=== PATIENT | male | born 1950 | race Caucasian/White ===

== ENCOUNTER 2020-08-02 10:22 | Outpatient (REF) | payer MEDICARE, SELFPAY ==
[2020-08-02 11:25] LABS: MANUAL DIFF FLAG NO
[2020-08-02 11:28] LABS: Basophils Absolute Auto 0.1 X10*3/uL (0.0-0.2); Eosinophils Absolute Auto 0.2 X10*3/uL (0.0-0.4); Hematocrit 47.3 % (42-52); Hemoglobin 15.1 g/dl (14.0-18.0); Imm Gran Abs Auto 0.05 X10*3/uL (0.00-0.03); Imm Gran Pct Auto 0.6 % (0.0-0.4); Lymphocytes Absolute Auto 3.1 X10*3/uL (1.2-4.9); Lymphocytes Percent Auto 36.9 % (20-40); Mean Corpuscular HGB Conc 31.9 g/dl (31.0-36.0); Mean Corpuscular Hemoglobin 29.4 pg (27.0-33.0); Mean Corpuscular Volume 92.2 fL (80-98); Mean Platelet Volume 10.4 fL (9.4-12.4); Monocytes Absolute Auto 0.5 X10*3/uL (0.1-1.2); Monocytes Percent Auto 5.9 % (2-11); Neutrophils Absolute Auto 4.5 X10*3/uL (2.0-8.3); Neutrophils Percent Auto 53.6 % (45-73); Platelet Count 317 X10*3/uL (160-400); Red Blood Count 5.13 X10*6/uL (4.60-5.80); Red Cell Distribution Width 12.6 % (11.0-16.0); White Blood Count 8.3 X10*3/uL (4.8-10.8)
[2020-08-02 11:38] LABS: Estimated Average Glucose 194 mg/dL; Hemoglobin A1c % 8.4 %
[2020-08-02 11:50] LABS: Alanine Aminotransferase 27 U/L (0-40); Albumin Level 4.3 g/dL (3.5-5.0); Alkaline Phosphatase 89 U/L (39-117); Anion Gap 15 (12-20); Aspartate Amino Transferase 19 U/L (5-37); Blood Urea Nitrogen 17 mg/dL (9-16); Calcium 9.2 mg/dL (8.4-10.2); Carbon Dioxide 26 mmol/L (22-29); Chloride 103 mmol/L (96-108); Cholesterol 209 mg/dL; Estimated Glomerular Filt Rate > 60; Glucose Fasting 172 mg/dL (60-99); HDL Cholesterol 40 mg/dL; LDL Cholesterol Calculated 103 mg/dl; Sodium 139 mmol/L (135-145); Triglycerides 332 mg/dL
== END 2020-08-02 10:23 | disposition home or self-care (01) ==
LOC: HO.MANLDS 10:22
PROVIDERS: PCP Physician Assistant; Visit Provider Physician Assistant
DX: E78.00 Pure hypercholesterolemia, unspecified (principal); R73.01 Impaired fasting glucose
CPT/HCPCS: 36415; 80053; 80061; 83036; 85025

== ENCOUNTER 2020-12-06 12:03 | Outpatient (REF) | payer MEDICARE, SELFPAY ==
[2020-12-06 14:11] LABS: Estimated Average Glucose 189 mg/dL; Hemoglobin A1c % 8.2 %
[2020-12-06 14:20] LABS: Alanine Aminotransferase 28 U/L (0-40); Albumin Level 4.5 g/dL (3.5-5.0); Alkaline Phosphatase 90 U/L (39-117); Anion Gap 16 (12-20); Aspartate Amino Transferase 22 U/L (5-37); Bilirubin Total 0.7 mg/dL (0.0-1.0); Blood Urea Nitrogen 16 mg/dL (9-16); Calcium 9.6 mg/dL (8.4-10.2); Carbon Dioxide 25 mmol/L (22-29); Chloride 103 mmol/L (96-108); Cholesterol 242 mg/dL; Estimated Glomerular Filt Rate 58; Glucose Fasting 157 mg/dL (60-99); HDL Cholesterol 40 mg/dL; LDL Cholesterol Calculated 123 mg/dl; Potassium 4.7 mmol/L (3.3-5.1); Sodium 139 mmol/L (135-145); Total Protein 7.2 g/dL (6.5-8.0); Triglycerides 395 mg/dL
[2020-12-06 18:19] LABS: Creatinine Urine 170.76 mg/dL; Microalbum/Creatinine Ratio Ur 16.9 ug/mg cr
== END 2020-12-06 12:04 | disposition home or self-care (01) ==
LOC: HO.MANLR 12:03
PROVIDERS: PCP Internal Medicine; Visit Provider Physician Assistant
DX: E11.9 Type 2 diabetes mellitus without complications (principal)
CPT/HCPCS: 36415; 80053; 80061; 82043; 83036

== ENCOUNTER 2021-03-20 11:13 | Outpatient (REF) | payer MEDICARE, SELFPAY ==
[2021-03-20 13:01] LABS: Hematocrit 45.8 % (42-52); Hemoglobin 14.9 g/dl (14.0-18.0); Mean Corpuscular HGB Conc 32.5 g/dl (31.0-36.0); Mean Corpuscular Hemoglobin 29.7 pg (27.0-33.0); Mean Corpuscular Volume 91.4 fL (80-98); Mean Platelet Volume 10.5 fL (9.4-12.4); Platelet Count 286 X10*3/uL (160-400); Red Blood Count 5.01 X10*6/uL (4.60-5.80); Red Cell Distribution Width 12.9 % (11.0-16.0)
[2021-03-20 13:21] LABS: Alanine Aminotransferase 18 U/L (0-40); HDL Cholesterol 40 mg/dL
[2021-03-20 13:31] LABS: Albumin Level 4.4 g/dL (3.5-5.0); Alkaline Phosphatase 81 U/L (39-117); Anion Gap 12 (12-20); Aspartate Amino Transferase 18 U/L (5-37); Bilirubin Total 0.7 mg/dL (0.0-1.0); Blood Urea Nitrogen 15 mg/dL (9-16); Calcium 9.5 mg/dL (8.4-10.2); Carbon Dioxide 25 mmol/L (22-29); Chloride 107 mmol/L (96-108); Cholesterol 139 mg/dL; Estimated Glomerular Filt Rate > 60; Glucose Random 133 mg/dL (60-115); LDL Cholesterol Calculated 74 mg/dl; Potassium 4.2 mmol/L (3.3-5.1); Sodium 140 mmol/L (135-145); Total Protein 6.9 g/dL (6.5-8.0); Triglycerides 128 mg/dL
[2021-03-20 13:37] LABS: Estimated Average Glucose 166 mg/dL; Hemoglobin A1c % 7.4 %
== END 2021-03-20 11:14 | disposition home or self-care (01) ==
LOC: HO.MANLDS 11:13
PROVIDERS: PCP Internal Medicine; Visit Provider Physician Assistant
DX: E78.00 Pure hypercholesterolemia, unspecified (principal); E11.9 Type 2 diabetes mellitus without complications
CPT/HCPCS: 36415; 80053; 80061; 83036; 85027

== ENCOUNTER 2021-06-07 10:34 | Outpatient (REF) | payer MEDICARE, SELFPAY ==
[2021-06-07 13:32] LABS: Syphilis Screen Nonreactive (Nonreactive)
[2021-06-07 13:38] LABS: Free T4 (Free Thyroxine) 0.74 ng/dL (0.71-1.85); Thyroid Stimulating Hormone 1.26 uIU/mL (0.32-4.0)
[2021-06-07 13:44] LABS: Folate 9.6 ng/mL (> or = 4.0); Vitamin B12 549 pg/mL (200-900)
== END 2021-06-07 10:35 | disposition home or self-care (01) ==
LOC: HO.MANLDS 10:34
PROVIDERS: PCP Physician Assistant; Visit Provider Physician Assistant
DX: R41.3 Other amnesia (principal)
CPT/HCPCS: 36415; 82607; 82746; 84439; 84443; 86780

== ENCOUNTER 2021-10-03 11:21 | Outpatient (REF) | payer MEDICARE, SELFPAY ==
[2021-10-03 14:29] LABS: Estimated Average Glucose 143 mg/dL; Hemoglobin A1c % 6.6 %
[2021-10-03 14:57] LABS: Free T4 (Free Thyroxine) 0.75 ng/dL (0.71-1.85); Thyroid Stimulating Hormone 1.51 uIU/mL (0.32-4.0)
[2021-10-03 15:05] LABS: Folate 10.5 ng/mL (> or = 4.0); Vitamin B12 543 pg/mL (200-900)
[2021-10-04 04:14] LABS: Syphilis Screen Nonreactive (Nonreactive)
== END 2021-10-03 11:22 | disposition home or self-care (01) ==
LOC: HO.MANLDS 11:21
PROVIDERS: PCP Physician Assistant; Visit Provider Physician Assistant
DX: E11.9 Type 2 diabetes mellitus without complications (principal)
CPT/HCPCS: 36415; 82607; 82746; 83036; 84439; 84443; 86780

== ENCOUNTER 2022-03-05 10:39 | Outpatient (REF) | payer MEDICARE, SELFPAY ==
[2022-03-05 13:29] LABS: MANUAL DIFF FLAG NO
[2022-03-05 13:32] LABS: Basophils Absolute Auto 0.1 X10*3/uL (0.0-0.2); Basophils Percent Auto 0.7 % (0-2); Eosinophils Absolute Auto 0.2 X10*3/uL (0.0-0.4); Eosinophils Percent Auto 2.7 % (0-4); Hematocrit 47.6 % (42.0-52.0); Hemoglobin 15.7 g/dl (14.0-18.0); Imm Gran Abs Auto 0.04 X10*3/uL (0.00-0.03); Imm Gran Pct Auto 0.5 % (0.0-0.4); Lymphocytes Absolute Auto 2.2 X10*3/uL (1.2-4.9); Lymphocytes Percent Auto 25.6 % (20-40); Monocytes Absolute Auto 0.6 X10*3/uL (0.1-1.2); Monocytes Percent Auto 7.5 % (2-11); Neutrophils Absolute Auto 5.4 x10*3/uL (2.0-8.3); Platelet Count 248 X10*3/uL (160-400); Red Blood Count 5.23 X10*6/uL (4.60-5.80); White Blood Count 8.6 X10*3/uL (4.8-10.8)
[2022-03-05 13:43] LABS: Alanine Aminotransferase 36 U/L (0-40); Albumin Level 4.5 g/dL (3.5-5.0); Alkaline Phosphatase 95 U/L (39-117); Anion Gap 17 (12-20); Aspartate Amino Transferase 24 U/L (5-37); Bilirubin Total 0.7 mg/dL (0.0-1.0); Blood Urea Nitrogen 16 mg/dL (9-16); Calcium 9.8 mg/dL (8.4-10.2); Carbon Dioxide 23 mmol/L (22-29); Chloride 104 mmol/L (96-108); Cholesterol 197 mg/dL; Estimated Glomerular Filt Rate > 60; Glucose Random 206 mg/dL (60-115); HDL Cholesterol 39 mg/dL; LDL Cholesterol Calculated 99 mg/dl; Potassium 4.6 mmol/L (3.3-5.1); Sodium 139 mmol/L (135-145); Total Protein 7.3 g/dL (6.5-8.0); Triglycerides 297 mg/dL
[2022-03-05 14:05] LABS: Free T4 (Free Thyroxine) 0.82 ng/dL (0.71-1.85)
[2022-03-05 14:17] LABS: Estimated Average Glucose 180 mg/dL; Hemoglobin A1c % 7.9 %
[2022-03-05 14:46] LABS: Syphilis Screen Nonreactive (Nonreactive)
[2022-03-05 14:58] LABS: Folate 11.6 ng/mL (> or = 4.0); Vitamin B12 572 pg/mL (200-900)
== END 2022-03-05 10:40 | disposition home or self-care (01) ==
LOC: HO.MANLDS 10:39
PROVIDERS: Visit Provider Physician Assistant
DX: E11.9 Type 2 diabetes mellitus without complications (principal); E78.00 Pure hypercholesterolemia, unspecified; R41.3 Other amnesia
CPT/HCPCS: 36415; 80053; 80061; 82607; 82746; 83036; 84439; 84443; 85025; 86780

== ENCOUNTER 2022-06-06 10:27 | Outpatient (REF) | payer MEDICARE, SELFPAY ==
[2022-06-06 12:47] LABS: MANUAL DIFF FLAG NO
[2022-06-06 12:53] LABS: Basophils Absolute Auto 0.1 X10*3/uL (0.0-0.2); Eosinophils Absolute Auto 0.2 X10*3/uL (0.0-0.4); Eosinophils Percent Auto 2.5 % (0-4); Hematocrit 47.9 % (42.0-52.0); Hemoglobin 15.8 g/dl (14.0-18.0); Imm Gran Abs Auto 0.03 X10*3/uL (0.00-0.03); Imm Gran Pct Auto 0.4 % (0.0-0.4); Lymphocytes Percent Auto 35.9 % (20-40); Mean Corpuscular Hemoglobin 30.2 pg (27.0-33.0); Mean Corpuscular Volume 91.6 fL (80.0-98.0); Mean Platelet Volume 10.9 fL (9.4-12.4); Monocytes Absolute Auto 0.6 X10*3/uL (0.1-1.2); Neutrophils Absolute Auto 4.4 x10*3/uL (2.0-8.3); Neutrophils Percent Auto 53.2 % (45-73); Platelet Count 267 X10*3/uL (160-400); Red Blood Count 5.23 X10*6/uL (4.60-5.80); Red Cell Distribution Width 12.9 % (11.0-16.0); White Blood Count 8.3 X10*3/uL (4.8-10.8)
[2022-06-06 13:14] LABS: Estimated Average Glucose 180 mg/dL; Hemoglobin A1c % 7.9 %
[2022-06-06 13:54] LABS: Alanine Aminotransferase 55 U/L (0-40); Albumin Level 4.5 g/dL (3.5-5.0); Alkaline Phosphatase 103 U/L (39-117); Anion Gap 17 (12-20); Aspartate Amino Transferase 34 U/L (5-37); Bilirubin Total 0.5 mg/dL (0.0-1.0); Blood Urea Nitrogen 18 mg/dL (9-16); Calcium 9.8 mg/dL (8.4-10.2); Carbon Dioxide 26 mmol/L (22-29); Chloride 104 mmol/L (96-108); Estimated Glomerular Filt Rate > 60; Glucose Random 183 mg/dL (60-115); Potassium 4.6 mmol/L (3.3-5.1); Sodium 142 mmol/L (135-145); Total Protein 7.3 g/dL (6.5-8.0)
[2022-06-06 14:15] LABS: Free T4 (Free Thyroxine) 0.81 ng/dL (0.71-1.85); Thyroid Stimulating Hormone 2.25 uIU/mL (0.32-4.0)
[2022-06-06 14:30] LABS: Syphilis Screen Nonreactive (Nonreactive)
[2022-06-06 14:43] LABS: Folate 9.2 ng/mL (> or = 4.0); Vitamin B12 494 pg/mL (200-900)
== END 2022-06-06 10:28 | disposition home or self-care (01) ==
LOC: HO.MANLDS 10:27
PROVIDERS: Visit Provider Physician Assistant
DX: E78.00 Pure hypercholesterolemia, unspecified (principal); E11.9 Type 2 diabetes mellitus without complications; R41.3 Other amnesia
CPT/HCPCS: 36415; 80053; 82607; 82746; 83036; 84439; 84443; 85025; 86780

== ENCOUNTER 2022-08-08 10:05 | Outpatient (REF) | payer MEDICARE, SELFPAY ==
[2022-08-08 13:51] LABS: MANUAL DIFF FLAG NO
[2022-08-08 14:00] LABS: Basophils Absolute Auto 0.1 X10*3/uL (0.0-0.2); Basophils Percent Auto 1.1 % (0-2); Eosinophils Absolute Auto 0.2 X10*3/uL (0.0-0.4); Eosinophils Percent Auto 2.2 % (0-4); Hematocrit 47.5 % (42.0-52.0); Hemoglobin 15.6 g/dl (14.0-18.0); Imm Gran Abs Auto 0.05 X10*3/uL (0.00-0.03); Imm Gran Pct Auto 0.6 % (0.0-0.4); Lymphocytes Absolute Auto 2.6 X10*3/uL (1.2-4.9); Lymphocytes Percent Auto 31.8 % (20-40); Mean Corpuscular HGB Conc 32.8 g/dl (31.0-36.0); Mean Corpuscular Hemoglobin 29.5 pg (27.0-33.0); Mean Platelet Volume 10.7 fL (9.4-12.4); Monocytes Absolute Auto 0.6 X10*3/uL (0.1-1.2); Monocytes Percent Auto 6.8 % (2-11); Neutrophils Absolute Auto 4.6 x10*3/uL (2.0-8.3); Neutrophils Percent Auto 57.5 % (45-73); Platelet Count 284 X10*3/uL (160-400); Red Blood Count 5.28 X10*6/uL (4.60-5.80); Red Cell Distribution Width 12.9 % (11.0-16.0); White Blood Count 8.1 X10*3/uL (4.8-10.8)
[2022-08-08 14:07] LABS: Estimated Average Glucose 183 mg/dL
[2022-08-08 14:13] LABS: Alanine Aminotransferase 32 U/L (0-40); Albumin Level 4.5 g/dL (3.5-5.0); Alkaline Phosphatase 97 U/L (39-117); Anion Gap 19 (12-20); Aspartate Amino Transferase 22 U/L (5-37); Bilirubin Total 0.7 mg/dL (0.0-1.0); Blood Urea Nitrogen 14 mg/dL (9-16); Carbon Dioxide 24 mmol/L (22-29); Chloride 103 mmol/L (96-108); Cholesterol 215 mg/dL; Estimated Glomerular Filt Rate > 60; Glucose Random 161 mg/dL (60-115); HDL Cholesterol 38 mg/dL; LDL Cholesterol Calculated 117 mg/dl; Potassium 4.7 mmol/L (3.3-5.1); Sodium 141 mmol/L (135-145); Total Protein 7.3 g/dL (6.5-8.0); Triglycerides 302 mg/dL
[2022-08-08 14:32] LABS: Syphilis Screen Nonreactive (Nonreactive)
[2022-08-08 14:34] LABS: Free T4 (Free Thyroxine) 0.84 ng/dL (0.71-1.85)
[2022-08-08 15:35] LABS: Vitamin B12 473 pg/mL (200-900)
== END 2022-08-08 10:06 | disposition home or self-care (01) ==
LOC: HO.MANLDS 10:05
PROVIDERS: Visit Provider Physician Assistant
DX: Z13.89 Encounter for screening for other disorder (principal)
CPT/HCPCS: 36415; 80053; 80061; 82607; 83036; 84439; 84443; 85025; 86780

== ENCOUNTER 2022-10-05 11:11 | Outpatient (REF) | payer MEDICARE, SELFPAY ==
[2022-10-05 14:26] LABS: Estimated Average Glucose 194 mg/dL; Hemoglobin A1c % 8.4 %
[2022-10-05 14:37] LABS: Alanine Aminotransferase 33 U/L (0-40); Albumin Level 4.4 g/dL (3.5-5.0); Alkaline Phosphatase 91 U/L (39-117); Anion Gap 14 (12-20); Aspartate Amino Transferase 21 U/L (5-37); Bilirubin Total 0.7 mg/dL (0.0-1.0); Blood Urea Nitrogen 20 mg/dL (9-16); Carbon Dioxide 27 mmol/L (22-29); Chloride 106 mmol/L (96-108); Estimated Glomerular Filt Rate 60; Glucose Random 181 mg/dL (60-115); Potassium 4.8 mmol/L (3.3-5.1); Sodium 142 mmol/L (135-145); Total Protein 6.9 g/dL (6.5-8.0)
== END 2022-10-05 11:12 | disposition home or self-care (01) ==
LOC: HO.MANLDS 11:11
PROVIDERS: Visit Provider Physician Assistant
DX: E78.00 Pure hypercholesterolemia, unspecified (principal); E11.9 Type 2 diabetes mellitus without complications
CPT/HCPCS: 36415; 80053; 83036

== ENCOUNTER 2022-12-12 10:25 | Outpatient (REF) | payer MEDICARE, SELFPAY ==
[2022-12-12 13:18] LABS: Alanine Aminotransferase 56 U/L (0-40); Albumin Level 4.2 g/dL (3.5-5.0); Alkaline Phosphatase 96 U/L (39-117); Anion Gap 13 (12-20); Aspartate Amino Transferase 33 U/L (5-37); Bilirubin Total 0.9 mg/dL (0.0-1.0); Blood Urea Nitrogen 20 mg/dL (9-16); Calcium 9.8 mg/dL (8.4-10.2); Carbon Dioxide 27 mmol/L (22-29); Chloride 106 mmol/L (96-108); Cholesterol 162 mg/dL; Estimated Glomerular Filt Rate 59; Glucose Random 172 mg/dL (60-115); HDL Cholesterol 34 mg/dL; LDL Cholesterol Calculated 92 mg/dl; Potassium 5.2 mmol/L (3.3-5.1); Sodium 141 mmol/L (135-145); Total Protein 6.7 g/dL (6.5-8.0); Triglycerides 183 mg/dL
[2022-12-12 13:20] LABS: Estimated Average Glucose 177 mg/dL; Hemoglobin A1c % 7.8 %
== END 2022-12-12 10:26 | disposition home or self-care (01) ==
LOC: HO.MANLDS 10:25
PROVIDERS: Visit Provider Physician Assistant
DX: E11.9 Type 2 diabetes mellitus without complications (principal)
CPT/HCPCS: 36415; 80053; 80061; 83036

== ENCOUNTER 2023-03-20 10:24 | Outpatient (REF) | payer MEDICARE, SELFPAY ==
[2023-03-20 14:24] LABS: Alanine Aminotransferase 31 U/L (0-40); Alkaline Phosphatase 79 U/L (39-117); Anion Gap 14 (12-20); Aspartate Amino Transferase 27 U/L (5-37); Bilirubin Total 0.6 mg/dL (0.0-1.0); Blood Urea Nitrogen 24 mg/dL (9-16); Calcium 9.3 mg/dL (8.4-10.2); Carbon Dioxide 24 mmol/L (22-29); Chloride 108 mmol/L (96-108); Cholesterol 138 mg/dL; Estimated Glomerular Filt Rate > 60; Glucose Random 169 mg/dL (60-115); HDL Cholesterol 34 mg/dL; LDL Cholesterol Calculated 80 mg/dl; Potassium 4.3 mmol/L (3.3-5.1); Sodium 142 mmol/L (135-145); Total Protein 6.9 g/dL (6.5-8.0); Triglycerides 121 mg/dL
[2023-03-20 14:27] LABS: Estimated Average Glucose 166 mg/dL; Hemoglobin A1c % 7.4 %
== END 2023-03-20 10:25 | disposition home or self-care (01) ==
LOC: HO.MANLDS 10:24
PROVIDERS: Visit Provider Physician Assistant
DX: E11.9 Type 2 diabetes mellitus without complications (principal)
CPT/HCPCS: 36415; 80053; 80061; 83036

== ENCOUNTER 2023-07-01 11:17 | Outpatient (REF) | payer MEDICARE, SELFPAY ==
[2023-07-01 13:58] LABS: Estimated Average Glucose 166 mg/dL; Hemoglobin A1c % 7.4 % (<6.0)
[2023-07-01 14:05] LABS: Alanine Aminotransferase 23 U/L (0-40); Albumin Level 4.2 g/dL (3.5-5.0); Alkaline Phosphatase 74 U/L (39-117); Anion Gap 14 (12-20); Aspartate Amino Transferase 26 U/L (5-37); Bilirubin Total 0.8 mg/dL (0.0-1.0); Blood Urea Nitrogen 20 mg/dL (9-16); Calcium 9.9 mg/dL (8.4-10.2); Carbon Dioxide 22 mmol/L (22-29); Chloride 108 mmol/L (96-108); Cholesterol 164 mg/dL (<200); Estimated Glomerular Filt Rate > 60; Glucose Random 154 mg/dL (60-115); HDL Cholesterol 43 mg/dL (>40); LDL Cholesterol Calculated 95 mg/dL (<100); Potassium 4.2 mmol/L (3.3-5.1); Sodium 140 mmol/L (135-145); Total Protein 7.1 g/dL (6.5-8.0); Triglycerides 133 mg/dL (<150)
== END 2023-07-01 11:18 | disposition home or self-care (01) ==
LOC: HO.MANLDS 11:17
PROVIDERS: Visit Provider Physician Assistant
DX: E11.9 Type 2 diabetes mellitus without complications (principal)
CPT/HCPCS: 36415; 80053; 80061; 83036

== ENCOUNTER 2023-10-01 10:39 | Outpatient (REF) | payer MEDICARE, SELFPAY ==
[2023-10-01 14:00] LABS: Estimated Average Glucose 180 mg/dL; Hemoglobin A1c % 7.9 % (<6.0)
== END 2023-10-01 10:40 | disposition home or self-care (01) ==
LOC: HO.MANLDS 10:39
PROVIDERS: Visit Provider Physician Assistant
DX: E11.9 Type 2 diabetes mellitus without complications (principal)
CPT/HCPCS: 36415; 83036

== ENCOUNTER 2024-01-03 09:16 | Outpatient (REF) | payer MEDICARE, SELFPAY ==
[2024-01-03 13:45] LABS: MANUAL DIFF FLAG NO
[2024-01-03 13:55] LABS: Basophils Absolute Auto 0.1 X10*3/uL (0.0-0.2); Eosinophils Absolute Auto 0.2 X10*3/uL (0.0-0.4); Eosinophils Percent Auto 1.7 % (0-4); Hematocrit 48.6 % (42.0-52.0); Hemoglobin 15.6 g/dl (14.0-18.0); Imm Gran Abs Auto 0.05 X10*3/uL (0.00-0.03); Imm Gran Pct Auto 0.5 % (0.0-0.4); Lymphocytes Absolute Auto 3.2 X10*3/uL (1.2-4.9); Lymphocytes Percent Auto 34.4 % (20-40); Mean Corpuscular HGB Conc 32.1 g/dl (31.0-36.0); Mean Corpuscular Hemoglobin 29.9 pg (27.0-33.0); Mean Corpuscular Volume 93.3 fL (80.0-98.0); Monocytes Absolute Auto 0.7 X10*3/uL (0.1-1.2); Monocytes Percent Auto 7.5 % (2-11); Neutrophils Absolute Auto 5.2 x10*3/uL (2.0-8.3); Neutrophils Percent Auto 54.9 % (45-73); Platelet Count 260 X10*3/uL (160-400); Red Blood Count 5.21 X10*6/uL (4.60-5.80); Red Cell Distribution Width 12.9 % (11.0-16.0); White Blood Count 9.4 X10*3/uL (4.8-10.8)
[2024-01-03 14:01] LABS: Estimated Average Glucose 206 mg/dL; Hemoglobin A1c % 8.8 % (<6.0)
[2024-01-03 14:25] LABS: Alanine Aminotransferase 26 U/L (0-40); Albumin Level 4.1 g/dL (3.5-5.0); Alkaline Phosphatase 79 U/L (39-117); Anion Gap 11 (12-20); Aspartate Amino Transferase 19 U/L (5-37); Bilirubin Total 0.7 mg/dL (0.0-1.0); Blood Urea Nitrogen 21 mg/dL (9-16); Calcium 9.1 mg/dL (8.4-10.2); Carbon Dioxide 26 mmol/L (22-29); Chloride 106 mmol/L (96-108); Cholesterol 177 mg/dL (<200); Estimated Glomerular Filt Rate > 60; Glucose Random 219 mg/dL (60-115); HDL Cholesterol 41 mg/dL (>40); LDL Cholesterol Calculated 92 mg/dL (<100); Sodium 139 mmol/L (135-145); Total Protein 7.1 g/dL (6.5-8.0); Triglycerides 223 mg/dL (<150)
== END 2024-01-03 09:17 | disposition home or self-care (01) ==
LOC: HO.MANLDS 09:16
PROVIDERS: Visit Provider Physician Assistant
DX: E11.9 Type 2 diabetes mellitus without complications (principal)
CPT/HCPCS: 36415; 80053; 80061; 83036; 85025

== ENCOUNTER 2025-08-23 11:42 | Outpatient (REF) | payer MEDICARE, SELFPAY ==
[2025-08-23 13:18] LABS: Appearance Urine Clear; Glucose Urine UA >=1000 mg/dL (Negative); PH 5.5 (5.0-9.0); Specific Gravity - Urine 1.025 (1.005-1.025); UMIC TRIGGER UACC YES
--- OUTSIDE RECORDS SUMMARY | 2025-08-23 15:33 | XMS_ITS | Encounter Summary ---
Author Organization [facility] Address [address] [place] [address] Phone Care Team Providers Care Household Personal Assistant Name Role Phone Jill Estrada MBBS Unavailable [phone] Shireen Galicia PLUMBING INSTALLER Unavailable Maritza Vazquez TEAM PRIMARY CARE PHYSICIAN Unavailable Sebastián Guillen DO Primary Care Provider [phone] Encounter Details Date Type Department Care Team (Late st Contact Info) Description 04/29/2025 Procedure Pass [facility], Ct Scan - [address] [address] Social History Tobacco Use Types Packs/Day Years Used Date Smoking Tobacco: Never Smokeless Tobacco: Never Alcohol Use Standard Drinks/Week Comments No 0 (1 standard drink = 0.6 oz pur e alcohol) Home Health Assessment: Transportation Answer Date Recorded Lack of Transportation (Medical) No 04/22/2025 Lack of Transportation (Non-Medical) No 04/22/2025 Patient Unable or Declines to Respond No 04/22/2025 Education Answer Date Recorded Are you interested in more education? Not on amanda e 01/24/2023 Are you concerned about learning? Not on file 01/24/2023 No 01/24/2023 No 01/24/2023 Digital Access Answer Date Recorded No 02/25/2023 No 02/25/2023 Reliable internet access at home? Not on file 02/25/2023 Device with a working camera? Not on file Intimate Partner Violence Answer Date R ecorded Are you denied basic needs s uch as food, clothing, or medical care? Deferred 03/10/2025 In the past 12 months have y ou been in a relationship with a person who hurts, threatens, or tries to control you? Deferred 03/10/2025 Are you denied basic needs s uch as food, clothing, or medical care? Deferred 03/10/2025 In the past 12 months have y ou been in a relationship with a person who hurts, threatens, or tries to control you? Deferred 03/10/2025 Sex and Gender Information Value Date Recorded Sex Assigned at Male 07/08/2024 12:43 PM EDT Legal Sex Male 10:03 PM EDT Gender Identity Male 07/08/2024 12:43 PM EDT Sexual Orientation Straight 07/08/2024 12 :43 PM EDT documented as of this encounter Plan of Treatment Upcoming Encounters Date Type Department Care Team (Late st Contact Info) Description 06/17/2025 Procedure Pass [address] [address] 06/17/[address] [address] 09/08/2025 3:15 PM EST Appointment [address] [address] Jill Estrada MBBS [address] [place] [address] [email or web address] 09/09/2025 1:40 PM EST Office Visit [facility] [address] [place] [address] Prakash Zambrano DO [address] [place] [address] 09/15/2025 2:00 PM EST Office Visit [facility] [address] [place] [address] Jill Estrada MBBS 30 [place] [address] [email or web address] 09/24/2025 7:00 PM EST Appointment [facility], Bone Density - [facility] 30 [place] [address] Sebastián Guillen DO [address] [place] [address] documented as of this encounter Visit Diagnoses Not on filedocumented in this encounter Care Teams Household Personal Assistant Relationship Specialty Start Date End Date Sebastián Guillen DO [address] [place] [address] PCP - General Internal Medicine 10/14/24 Jill Estrada MBBS [email or web address] Medical Oncology 07/09/24 Shireen Galicia CNP [address] [place] [address] [email or web address] Nurse Practitioner 10/08/24 Maritza Vazquez NP [address] [place] [address] [email or web address] Nurse Practitioner 10/13/24 documented as of this encounter Additional Source Comments The information contained in this document represents components of the legal health record. It is not the complete legal health record.[facility]
--- OUTSIDE RECORDS SUMMARY | 2025-08-23 15:33 | XMS_ITS | Encounter Summary ---
Author Organization [facility] Address [address] [place] [address] Phone Care Team Providers Care Vacuum Drier Tender Name Role Phone Sebastián Guillen DO Primary Care Provider + Jill Estrada MBBS Unavailable + Pcp, Unknown Primary Care Provider Unavailabl e Shireen Galicia LITIGATION PARALEGAL Unavailable Maritza Vazquez LONG CHAIN DYEING MACHINE OPERATOR Unavailable [phone] Bigjesus manuel, Sebastián Malave DO Primary Care Provider + Bigda, Sebastián Malave DO Primary Care Provider + Encounter Details Date Type Department Care Team (Late st Contact Info) Description 05/27/2024 Procedure Pass [facility], Ct Scan - [address] [address] Social History Tobacco Use Types Packs/Day Years Used Date Smoking Tobacco: Never Smokeless Tobacco: Never Alcohol Use Standard Drinks/Week Comments No 0 (1 standard drink = 0.6 oz pur e alcohol) Education Answer Date Recorded Are you interested in more education? Not on amanda e 01/24/2023 Are you concerned about learning? Not on file 01/24/2023 No 01/24/2023 No 01/24/2023 Digital Access Answer Date Recorded No 02/25/2023 No 02/25/2023 Reliable internet access at home? Not on file 02/25/2023 Device with a working camera? Not on file Sex and Gender Information Value Date Recorded Sex Assigned at Male 07/08/2024 12:43 PM EDT Legal Sex Male 10:03 PM EDT Gender Identity Male 07/08/2024 12:43 PM EDT Sexual Orientation Straight 07/08/2024 12 :43 PM EDT documented as of this encounter Functional Status * Calculated C-SSRS Risk Score (Lifetime/Recent) Answer Date of Assessment Author No Risk Indicated 05/28/2024 5:23 AM EDT Zena Cook RN * [place] Suicide Severity Rating Scale (Screener/Recent Self-Report) Question Answer Date of Assessment Author 1. Wish to be (Past 1 Month) No 024 5:23 AM EDT Zena Cook RN 2. Non-Specific Active Suici paige Thoughts (Past 1 Month) No 05/28/2024 5:23 AM EDT Arden Cook RN 6. Suicidal Behavior (Lifetime) No 5:23 AM EDT Zena Cook RN documented as of this encounter Plan of Treatment Upcoming Encounters Date Type Department Care Team (Late st Contact Info) Description 06/17/2025 Procedure Pass [address] [address] 06/17/2025 Procedure Pass [address] [address] 09/08/2025 3:15 PM EST Appointment [address] [address] Jill Estrada MBBS [address] [place] [address] [email or web address] 09/09/2025 1:40 PM EST Office Visit [facility] [address] [place] [address] Prakash Zambrano DO [address] [place] [address] 09/15/2025 2:00 PM EST Office Visit [facility] 30 [place] [address] Jill Estrada MBBS 30 [place] [address] [email or web address] 09/24/2025 7:00 PM EST Appointment [facility], Bone Density - [address] [address] Sebastián Guillen DO [address] [place] [address] documented as of this encounter Visit Diagnoses Not on filedocumented in this encounter Care Teams Vacuum Drier Tender Relationship Specialty Start Date End Date Sebastián Guillen DO PCP - General Internal Medicine 09/10/17 07/27/24 Pcp, Unknown PCP - General 10/08/24 10/13/24 Sebastián Guillen DO [address] [place] [address] PCP - General Internal Medicine 10/14/24 Sebastián Guillen DO [address] [place] [address] PCP - General 08/17/24 10/07/24 Jill Estrada MBBS [email or web address] Medical Oncology 07/09/24 Shireen Galicia CNP [address] [place] [address] [email or web address] Nurse Practitioner 10/08/24 Maritza Vazquez NP [address] [place] [address] [email or web address] Nurse Practitioner 10/13/24 documented as of this encounter Additional Source Comments The information contained in this document represents components of the legal health record. It is not the complete legal health record.[facility]
--- OUTSIDE RECORDS SUMMARY | 2025-08-23 15:33 | XMS_ITS | Encounter Summary ---
Author Organization [facility] Address [address] [place] [address] Phone Care Team Providers Care Manager Interface Name Role Phone Jill Estrada MBBS Unavailable Shireen Galicia TAX PREPARER Unavailable Maritza Vazquez IT SALES REPRESENTATIVE Unavailable [phone] Sebastián Guillen DO Primary Care Provider Encounter Details Date Type Department Care Team (Late st Contact Info) Description 05/12/2025 Ancillary Orders Virtual Department 30 [place] [address] Sebastián Guillen DO [address] [facility] [place] [address] Osteopenia, unspecified location (Primary Dx); Other specified disorders of bone density and structure, unspecified site; Adverse effect of multiple unspecified drugs, medicaments and biological substances, initial encounter Social History Tobacco Use Types Packs/Day Years [...] st Contact Info) Description 06/17/2025 Procedure Pass [address] [address] 06/17/2025 Procedure Pass [address] [address] 09/08/2025 3:15 PM EST Appointment [address] [address] Jill Estrada MBBS [address] [place] [address] [email or web address] 09/09/2025 1:40 PM EST Office Visit [facility] [address] [place] [address] Prakash Zambrano DO 22 [place] [address] 09/15/2025 2:00 PM EST Office Visit [facility] 30 [place] [address] Jill Estrada MBBS 30 [place] [address] [email or web address] 09/24/2025 7:00 PM EST Appointment [facility], Bone Density - [address] [address] Sebastián Guillen DO [address] [facility] [place] [address] Scheduled Orders Name Type Priority Associated Diagnoses Orde r Schedule DXA Screening Imaging Routine Osteopenia, unspecified location Other specified disorders of bone density and structure, unspecified site Adverse effect of multiple unspecified drugs, medicaments and biological substances, initial encounter Expected: 06/11/2025, Expires: 05/12/2026 documented as of this encounter Visit Diagnoses Diagnosis Osteopenia, unspecified location- Primary Other specified disorders of bone density and structure, unspecified site Adverse effect of multiple unspecified drugs, medicaments and biological substances, initial encounter documented in this encounter Care Teams Manager Interface Relationship Specialty Start Date End Date Sebastián Guillen DO [address] [place] [address] PCP - General Internal Medicine 10/14/24 Jill Estrada MBBS [email or web address] Medical Oncology 07/09/24 Shireen Galicia CNP [address] [place] [address] [email or web address] Nurse Practitioner 10/08/24 Maritza Vazquez NP [address] [place] [address] [email or web address] Nurse Practitioner 10/13/24 documented as of this encounter Additional Source Comments The information contained in this document represents components of the legal health record. It is not the complete legal health record.[facility]
--- OUTSIDE RECORDS SUMMARY | 2025-08-23 15:33 | XMS_ITS | Encounter Summary ---
Author Organization [facility] Address [address] [place] [address] Phone Care Team Providers Care Cutting Table Operator Name Role Phone Sebastián Guillen DO Primary Care Provider [phone] Jill Estrada MBBS Unavailable [phone] Pcp, Unknown Primary Care Provider Unavailabl Shireen France QUALITY ASSURANCE MANAGER Unavailable Maritza Vazquez VENDOR MANAGEMENT CONSULTANT Unavailable [phone] Bigda, Sebastián A DO Primary Care Provider [phone] Bigda, Sebastián A DO Primary Care Provider [phone] Encounter Details Date Type Department Care Team (Latest Contact Info) Description 05/22/2021 Transcribe Orders Virtual Department 30 [place] [address] Sheree Orellana PA [address] [place] [address] [place] [address] Other amnesia (Primary Dx) Social History Tobacco Use Types Packs/Day Years Used Date Smoking Tobacco: Never Smokeless Tobacco: Never Alcohol Use Standard Drinks/Week Comments No 0 (1 standard drink = 0.6 oz pur e alcohol) Sex and Gender Information Value Date Recorded Sex Assigned at Male 07/08/2024 12:43 PM EDT Legal Sex Male 10:03 PM EDT Gender Identity Male 07/08/2024 12:43 PM EDT Sexual Orientation Straight 07/08/2024 12 :43 PM EDT documented as of this encounter Plan of Treatment Upcoming Encounters Date Type Department Care Team (Late st Contact Info) Description 06/17/2025 Procedure Pass [facility] [address] [address] 06/17/2025 Procedure Pass [address] [address] 09/08/2025 3:15 PM EST Appointment [address] [address] Jill Estrada MBBS [address] [place] [address] [email or web address] 09/09/2025 1:40 PM EST Office Visit [facility] [address] [place] [address] Prakash Zambrano DO [address] [place] [address] 09/15/2025 2:00 PM EST Office [facility] at [address] [address] Jill Estrada MBBS [address] [place] [address] [email or web address] 09/24/2025 7:00 PM EST Appointment [facility] Bone Density [address] [address] Sebastián Guillen DO [address] [place] [address] [email or web address] documented as of this encounter Visit Diagnoses Diagnosis Other amnesia- Primary documented in this encounter Care Teams Cutting Table Operator Relationship Specialty Start Date End Date Sebastián Guillen DO PCP - General Internal Medicine 09/10/17 07/27/24 Pcp, Unknown PCP - General 10/08/24 10/13/24 BridgetteSebastián ken DO 30 [place] [address] PCP - General Internal Medicine 10/14/24 BridgetteSebastián kenDO [address] [place] [address] PCP - General 08/17/24 10/07/24 Jill Estrada MBBS [email or web address] Medical Oncology 07/09/24 Shireen Galicia CNP [address] [place] [address] Nurse Practitioner 10/08/24 Maritza Vazquez NP [address] [place] [address] [email or web address] Nurse Practitioner 10/13/24 documented as of this encounter Additional Source Comments The information contained in this document represents components of the legal health record. It is not the complete legal health record.[facility]
--- OUTSIDE RECORDS SUMMARY | 2025-08-23 15:33 | XMS_ITS | Encounter Summary ---
Author Organization [facility] Address [address] [place] [address] Phone Care Team Providers Care Director Clinical Research Name Role Phone Jill Estrada MBBS Unavailable Shireen Galicia MCAT INSTRUCTOR Unavailable Maritza Vazquez SALES MANAGEMENT INTERN Unavailable Sebastián Guillen DO Primary Care Provider [phone] Encounter Details Date Type Department Care Team (Late st Contact Info) Description 04/29/2025 Procedure Pass [facility], Ct Scan - [address] [address] Social History Tobacco Use Types Packs/Day Years [...] st Contact Info) Description 06/17/2025 Procedure Pass [address] [address] 06/17/[address] [address] 09/08/2025 3:15 PM EST Appointment [address] [address] Jill Estrada MBBS [address] [place] [address] [email or web address] 09/09/2025 1:40 PM EST Office Visit [facility] [address] [place] [address] Prakash Zambrano DO [address] [place] [address] 09/15/2025 2:00 PM EST Office Visit [facility] [address] [place] [address] Jill Estrada MBBS 30 [place] [address] [email or web address] 09/24/2025 7:00 PM EST Appointment [facility], Bone Density - [facility] 30 [place] [address] Sebastián Guillen DO 179 [place] [address] documented as of this encounter Visit Diagnoses Not on filedocumented in this encounter Care Teams Director Clinical Research Relationship Specialty Start Date End Date Sebastián Guillen DO [address] [place] [address] PCP - General Internal Medicine 10/14/24 Jill Estrada MBBS [email or web address] Medical Oncology 07/09/24 Shireen Galicia CNP [address] [place] [address] [email or web address] Nurse Practitioner 10/08/24 Maritza Vazquez NP [address] [place] [address] [email or web address] Nurse Practitioner 10/13/24 documented as of this encounter Additional Source Comments The information contained in this document represents components of the legal health record. It is not the complete legal health record.[facility]
--- OUTSIDE RECORDS SUMMARY | 2025-08-23 15:33 | XMS_ITS | Encounter Summary ---
Author Organization [facility] Address [address] [place] [address] Phone Care Team Providers Care Spinning Frame Changer Name Role Phone Sebastián Guillen DO Primary Care Provider + Jill Estrada MBBS Unavailable + Pcp, Unknown Primary Care Provider Unavailabl Shireen France HOLE DIGGER TRUCK DRIVER Unavailable Maritza Vazquez ACCOUNTS RECEIVABLE BOOKKEEPER Unavailable [phone] Bigjesus manuel, Sebastián Malave DO Primary Care Provider + Bigda, Sebastián Malave DO Primary Care Provider + Encounter Details Date Type Department Care Team (Late st Contact Info) Description 05/28/2024 Procedure Pass [facility], [address] [phone] Social History Tobacco Use Types Packs/Day Years [...] 5:23 AM EDT Zena Cook RN * [place] Suicide Severity Rating Scale (Screener/Recent Self-Report) Question [...] st Contact Info) Description 06/17/2025 Procedure Pass [address] [address] 06/17/2025 Procedure Pass [address] [address] 09/08/2025 3:15 PM EST Appointment [address] [address] Jill Estrada MBBS [address] [place] [address] [email or web address] 09/09/2025 1:40 PM EST Office Visit [facility] [address] [place] [address] Prakash Zambrano DO [address] [place] [address] 09/15/2025 2:00 PM EST Office Visit [facility] 30 [place] [address] Jill Estrada MBBS 30 [place] [address] [email or web address] 09/24/2025 7:00 PM EST Appointment [facility], Bone Density - [address] [address] Sebastián Guillen DO [address] [place] [address] documented as of this encounter Visit Diagnoses Not on filedocumented in this encounter Care Teams Spinning Frame Changer Relationship Specialty Start Date End Date Sebastián Guillen DO PCP - General Internal Medicine 09/10/17 07/27/24 Pcp, Unknown PCP - General 10/08/24 10/13/24 Sebastián Guillen DO [address] [place] [address] PCP - General Internal Medicine 10/14/24 Sebastián Guillen DO [address] [place] [address] PCP - General 08/17/24 10/07/24 Jill Estrada MBBS [email or web address] Medical Oncology 07/09/24 Shireen Galicia CNP [address] [place] [address] [email or web address] Nurse Practitioner 10/08/24 Maritza Vazquez NP [address] [place] [address] [email or web address] Nurse Practitioner 10/13/24 documented as of this encounter Additional Source Comments The information contained in this document represents components of the legal health record. It is not the complete legal health record.[facility]
--- OUTSIDE RECORDS SUMMARY | 2025-08-23 15:33 | XMS_ITS | Encounter Summary ---
Author Organization [facility] Address [address] [employer] [address] [address] Phone Care Team Providers Care Health Center Associate Name Role Phone Sebastián Guillen DO Primary Care Provider + Jill Estrada MBBS Unavailable + Pcp, Unknown Primary Care Provider Unavailabl Shireen France SIXTH GRADE TEACHER Unavailable Maritza Vazquez LEVEL VIAL SEALER Unavailable [phone] Bigjesus manuel, Sebastián A DO Primary Care Provider + Bigda, Sebastián A DO Primary Care Provider + Encounter Details Date Type Department Care Team (Late st Contact Info) Description 01/21/2018 Procedure Pass [facility] Admitting Dept Virtual Department [address] [place] [address] Social History Tobacco Use Types Packs/Day Years [...] Encounters Date Type Department Care Team (Late Contact Info) Description 06/17/2025 Procedure Pass [facility] Ct Scan - [address] [address] 06/17/2025 Procedure Pass [address] [address] 09/08/2025 3:15 PM EST Appointment [address] [address] Jill Estrada MBBS [address] [place] [address] [email or web address] 09/09/2025 1:40 PM EST Office Visit [facility] [address] [place] [address] Prakash Zambrano DO [address] [place] [address] 09/15/2025 2:00 PM EST Office Visit [facility] at [address] [address] Jill Estrada MBBS [address] [place] [address] [email or web address] 09/24/2025 7:00 PM EST Appointment [facility], Bone Density - [address] [address] Sebastián Guillen DO [address] [facility] [place] [address] documented as of this encounter Visit Diagnoses Not on filedocumented in this encounter Care Teams Health Center Associate Relationship Specialty Start Date End Date Sebastián Guillen DO PCP - General Internal Medicine 09/10/17 07/27/24 Pcp, Unknown PCP - General 10/08/24 10/13/24 Sebastián Guillen DO [address] [place] [address] PCP - General Internal Medicine 10/14/24 Sebastián Guillen DO [address] [place] [address] PCP - General 08/17/24 10/07/24 Jill Estrada MBBS [email or web address] Medical Oncology 07/09/24 Shireen Galicia CNP [address] [place] [address] Nurse Practitioner 10/08/24 Maritza Vazquez NP [address] [place] [address] Nurse Practitioner 10/13/24 documented as of this encounter Additional Source Comments The information contained in this document represents components of the legal health record. It is not the complete legal health record.[facility]
--- OUTSIDE RECORDS SUMMARY | 2025-08-23 15:33 | XMS_ITS | Encounter Summary ---
Author Organization [facility] Address [address] [place] [address] Phone Care Team Providers Care Health Sciences Manager Name Role Phone Sebastián Guillen DO Primary Care Provider + Jill Estrada MBBS Unavailable + Pcp, Unknown Primary Care Provider Unavailabl Shireen France PAINTER PLATE Unavailable Maritza Vazquez SEWER PIPE LAYER Unavailable [phone] BigSebastián ken DO Primary Care Provider + BigdaSebastián DO Primary Care Provider + Encounter Details Date Type Department Care Team (Late st Contact Info) Description 02/08/2023 Procedure Pass [facility] Admitting Dept Virtual Department [address] [place], [place] [id number] Social History Tobacco Use Types Packs/Day Years Used Date Smoking Tobacco: Never Smokeless Tobacco: Never Alcohol Use Standard Drinks/Week Comments No 0 (1 standard drink = 0.6 oz pur e alcohol) Education Answer Date Recorded Are you interested in more education? Not on amanda e 01/24/2023 Are you concerned about learning? Not on file 01/24/2023 No 01/24/2023 No 01/24/2023 Sex and Gender Information Value Date Recorded Sex Assigned at Male 07/08/2024 12:43 PM EDT Legal Sex Male 10:03 PM EDT Gender Identity Male 07/08/2024 12:43 PM EDT Sexual Orientation Straight 07/08/2024 12 :43 PM EDT documented as of this encounter Plan of Treatment Upcoming Encounters Date Type Department Care Team (Late st Contact Info) Description 06/17/2025 Procedure [facility], Ct Scan [address] [address] 06/17/2025 Procedure Pass [facility] [address] [address] 09/08/2025 3:15 PM EST Appointment [address] [address] Jill Estrada MBBS [address] [place] [address] [email or web address] 09/09/2025 1:40 PM EST Office Visit [facility] [address] [place] [address] Prakash Zambrano DO [address] [place] [address] 09/15/2025 2:00 PM EST Office Visit [facility] at [address] [address] Jill Estrada MBBS [address] [place] [address] [email or web address] 09/24/2025 7:00 PM EST Appointment [facility], Bone Density [address] [address] Sebastián Guillen DO [address] [facility] [place] [address] [email or web address] documented as of this encounter Visit Diagnoses Not on filedocumented in this encounter Care Teams Health Sciences Manager Relationship Specialty Start Date End Date Sebastián Guillen DO PCP - General Internal Medicine 09/10/17 07/27/24 Pcp, Unknown PCP - General 10/08/24 10/13/24 BridgetteSebastián ken DO [address] [place] [address] PCP - General Internal Medicine 10/14/24 Bridgettejesus manuel Sebastián MalaveDO [address] [place] [address] PCP - General 08/17/24 10/07/24 Jill Estrada MBBS [email or web address] Medical [email or web address] 07/09/24 Shireen Galicia CNP [address] [place] [address] Nurse Practitioner 10/08/24 Maritza Vazquez NP [address] [place] [address] Nurse Practitioner 10/13/24 documented as of this encounter Additional Source Comments The information contained in this document represents components of the legal health record. It is not the complete legal health record.[facility]
--- OUTSIDE RECORDS SUMMARY | 2025-08-23 15:33 | XMS_ITS | Encounter Summary ---
Author Organization [facility] Address [address] [place] [address] Phone Care Team Providers Care Director Of Medical Staff Services Name Role Phone Jill Estrada MBBS Unavailable [phone] Shireen Galicia CLERICAL RECEPTIONIST Unavailable Maritza Vazquez NURSING PROGRAM CHAIR Unavailable Sebastián Guillen DO Primary Care Provider Encounter Details Date Type Department Care Team (Late st Contact Info) Description 05/12/2025 Transcribe Orders Virtual Department [address] [place] [address] Sebastián Guillen DO [address] [facility] [place] [address] Osteopenia, unspecified location (Primary Dx) Social History Tobacco Use Types [...] st Contact Info) Description 06/17/2025 Procedure Pass [address] [address] 06/17/2025 Procedure Pass [address] [address] 09/08/2025 3:15 PM EST Appointment [address] [address] Jill Estrada MBBS [address] [place] [address] [email or web address] 09/09/2025 1:40 PM EST Office Visit [facility] [address] [place] [address] [place] [address] Prakash Zambrano DO [address] [place] [address] [email or web address] 09/15/2025 2:00 PM EST Office Visit [facility] [address] [place] [address] Jill Estrada MBBS [address] [place] [address] [email or web address] 09/24/2025 7:00 PM EST Appointment [facility], Bone Density - [address] [address] Sebastián Guillen DO [address] [place] [address] [email or web address] documented as of this encounter Visit Diagnoses Diagnosis Osteopenia, unspecified location- Primary documented in this encounter Care Teams Director Of Medical Staff Services Relationship Specialty Start Date End Date Sebastián Guillen DO [address] [place] [address] [email or web address] PCP - General Internal Medicine 10/14/24 Jill Estrada MBBS [email or web address] 07/09/24 Shireen Galicia CNP [address] [place] [address] [email or web address] Nurse Practitioner 10/08/24 Maritza Vazquez NP [address] [place] [address] [email or web address] Nurse Practitioner 10/13/24 documented as of this encounter Additional Source Comments The information contained in this document represents components of the legal health record. It is not the complete legal health record.[facility]
--- OUTSIDE RECORDS SUMMARY | 2025-08-23 15:33 | XMS_ITS | Encounter Summary ---
Author Organization [facility] Address [address] [place] [address] Phone Care Team Providers Care Lace Mender Name Role Phone Jill Estrada Unavailable [phone] Shireen Galicia BROADCAST DIRECTOR OPERATIONS Unavailable Maritza Vazquez SLIDE ATTENDANT Unavailable Sebastián Guillen DO Primary Care Provider [phone] Reason for Visit * Reason Onset Date Comments bad breath/foul stool 07/08/2025 Encounter Details Date Type Department Care Team (Late st Contact Info) Description 07/08/2025 Telephone [facility] [address] [place] [address] Jill Estrada, LISA [address] [place] [address] [email or web address] bad breath/foul stool () Social History Tobacco Use Types Packs/Day Years [...] PM EDT documented as of this encounter Progress Notes * Bruna Powell RN - 07/08/2025 1:58 PM EDT oZë calls in with multiple concerns. States Gaurav had surgery in February and has been doing well. Good appetite and slowly gaining weight. Report Gaurav has been c/o a lump in his throat when swallowing, below roth apple. Has not impacted eating or drinking however Zoë would like this addressed as to what it could be. She reports foul breath despite good oral hygiene and rinses. Also notes more that usual foul smelling stool. Denies diarrhea, normal bowel movements. She tried changing him to a bland diet thinking that would help the smell and it did nothing. Recommended he not limit his diet with no GI upest as we want him to regain weight and to continue with a balanced diet documented in this encounter Plan of Treatment Upcoming Encounters Date Type Department Care Team (Late st Contact Info) Description 06/17/2025 Procedure Pass [address] [address] 06/17/2025 Procedure Pass [address] [address] 09/08/2025 3:15 PM EST Appointment [address] [address] Jill Estrada MBBS [address] [place] [address] [email or web address] 09/09/2025 1:40 PM EST Office Visit [facility] [address] [place] [address] Prakash Zambrano DO [address] [place] [address] 09/15/2025 2:00 PM EST Office Visit [facility] at [address] [address] Jill Estrada MBBS [address] [place] [address] [email or web address] 09/24/2025 7:00 PM EST Appointment [facility]ensity [address] [address] Sebastián Guillen DO [address] [place] [address] [email or web address] documented as of this encounter Visit Diagnoses Not on filedocumented in this encounter Care Teams Lace Mender Relationship Specialty Start Date End Date Sebastián Guillen DO [address] [place] [address] [email or web address] PCP - General Internal Medicine 10/14/24 Jill Estrada MBBS [email or web address] Medical Oncology 07/09/24 Shireen Galicia CNP [address] [place] [address] [email or web address] Nurse Practitioner 10/08/24 Maritza Vazquez NP [address] [place] [address] [email or web address] Nurse Practitioner 10/13/24 documented as of this encounter Additional Source Comments The information contained in this document represents components of the legal health record. It is not the complete legal health record.[facility]
--- OUTSIDE RECORDS SUMMARY | 2025-08-23 15:34 | XMS_ITS | Data Portability ---
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) MDM MODERATE MUST MEET 2 OUT OF 3 ELEMENTS: PROBLEMS, DATA OR RISK ELEMENT 1: PROBLEMS ADDRESSED 1 OR MORE CHRONIC ILLNESS WITH EXACERBATION OR 2 OR MORE STABLE CHRONIC ILLNESSES OR 1 UNDIAGNOSED NEW PROBLEM OR 1 ACUTE ILLNESS W/SYMPTOMS OR 1 ACUTE COMPLICATED INJURY ELEMENT 2: DATA MUST MEET 1 OF 3 CATEGORIES CATEGORY 1: REVIEW OF PRIOR EXTERNAL NOTES, REVIEW OF RESULTS, ORDERING OF EACH TEST, ASSESSMENT REQUIRING INDEPENDENT HISTORIAN OR CATEGORY 2: INDEPENDENT INTERPRETATION OF TESTS BY ANOTHER PHYSICIAN OR SPECIALIST OR CATEGORY 3: DISCUSSION OF MGT OR TEST INTERPRETATION W/EXTERNAL PHYSICIAN OR SPECIALIST ELEMENT 3: RISK RISK OF COMPLICATIONS AND/OR MORBIDITY OR MORTALITY OF PATIENT MANAGEMENT PROVIDER MUST THOROUGHLY DOCUMENT EACH ELEMENT THAT IS COVERED Not available 04/07/2025 14:40:22 05/12/2025 05/12/2025 [id number] [place] [id number] ([employer]ENSWE[employer] 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) MDM HIGH MUST MEET 2 OUT OF 3 ELEMENTS: PROBLEMS, DATA OR RISK ELEMENT 1: PROBLEMS 1 OR MORE CHRONIC ILLNESS W/SEVERE EXACERBATION, PROGRESSION MAY REQUIRE HOSPITAL LEVEL CARE OR 1 ACUTE OR CHRONIC ILLNESS OR INJURY THAT POSES A THREAT TO LIFE OR BODILY FUNCTION ELEMENT 2: DATA: MUST MEET 2 OF 3 CATEGORIES CATEGORY 1 REVIEW OF PRIOR EXTERNAL NOTES REVIEW OF THE RESULTS ORDERING OF EACH TEST ASSESSMENT REQUIRING INDEPENDENT HISTORIAN(S) CATEGORY 2: INDEPENDENT INTERPRETATION OF TESTS BY ANOTHER PROVIDER/SPECIALI ST CATEGORY 3: DISCUSSION OF MGT OR TEST INTERPRETATION W/EXTERNAL PHYSICIAN/SPECIAL IST ELEMENT 3: RISK HIGH RISK OF MORBIDITY FROM ADDITIONAL DIAGNOSTIC TESTING OR TREATMENT PROVIDER MUST THOROUGHLY DOCUMENT EACH ELEMENT THAT IS COVERED The patient presented to their appointment today for multiple concerns requiring moderate to high-level decision making and took over 40-45 minutes for an adequate and appropriate history, exam, assessment and treatment plan. This appointment was done with an established patient. . 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) MDM MODERATE MUST MEET 2 OUT OF 3 ELEMENTS: PROBLEMS, DATA OR RISK ELEMENT 1: PROBLEMS ADDRESSED 1 OR MORE CHRONIC ILLNESS WITH EXACERBATION OR 2 OR MORE STABLE CHRONIC ILLNESSES OR 1 UNDIAGNOSED NEW PROBLEM OR 1 ACUTE ILLNESS W/SYMPTOMS OR 1 ACUTE COMPLICATED INJURY ELEMENT 2: DATA MUST MEET 1 OF 3 CATEGORIES CATEGORY 1: REVIEW OF PRIOR EXTERNAL NOTES, REVIEW OF RESULTS, ORDERING OF EACH TEST, ASSESSMENT REQUIRING INDEPENDENT HISTORIAN OR CATEGORY 2: INDEPENDENT INTERPRETATION OF TESTS BY ANOTHER PHYSICIAN OR SPECIALIST OR CATEGORY 3: DISCUSSION OF MGT OR TEST INTERPRETATION W/EXTERNAL PHYSICIAN OR SPECIALIST ELEMENT 3: RISK RISK OF COMPLICATIONS AND/OR MORBIDITY OR MORTALITY OF PATIENT MANAGEMENT PROVIDER MUST THOROUGHLY DOCUMENT EACH ELEMENT THAT IS COVERED Not available 08/16/2025 15:03:50 Plan of Treatment Reminders Order Date Submit Date Provider Last Modified By Organization Details Last Modified Time Details Appointments FOLLOW UP 15 2025 02:45P M DR CUTLER Not available Not available Not available Lab microalbu min, urine 2024 025 [facility], [address] [place] [address], [id number], 08/16/2025 15:06:42 urinalysi s complete, reflex culture 2024 025 [facility], [address] [place] [address], [id number], 08/16/2025 15:06:42 PSA, serum or plasma 2024 025 [facility] (Outpatient), [address] [place] [address], [id number], 05/12/2025 14:39:32 hemoglobi n A1c, QN, blood 2024 025 [facility], [address] [place] [address], [id number], 04/07/2025 14:43:37 lipid panel, blood 2024 025 [facility], [address] [place] [address], [id number], 04/07/2025 14:43:37 CMP, serum or plasma 2024 025 [facility], [address] [place] [address], [id number], 04/14/2025 19:59:25 CBC w/ auto diff 2024 025 [facility], [address] [place] [address], [id number], 04/29/2025 10:37:46 CMP, serum or plasma 2023 024 [facility] (Outpatient), [address] [place] [address], [id number], 05/26/2024 14:02:21 CBC w/ auto diff 2023 024 [facility] (Outpatient), [address] [place] [address], [id number], 05/26/2024 14:03:40 hepatitis panel (A+B+C), acute, serum 2023 024 [facility] (Outpatient), [address] [place] [address], [id number], 05/26/2024 11:10:41 lipase, serum or plasma 2023 024 [facility] (Outpatient), [address] [place] [address], [id number], 05/26/2024 11:10:42 amylase, serum or plasma 2023 024 [facility] (Outpatient), [address] [place], [address], 05/26/2024 11:10:41 gamma-glu tamyl transfera se (ggt), serum 2023 [facility] (Outpatient), [address] [place], [address], 05/26/2024 11:10:41 urinalysi s complete, reflex culture 2023 024 [facility] (Outpatient), [address] [place] [address], [id number], 05/26/2024 11:10:41 ESR (erythroc yte sedimenta tion rate), blood 2023 [facility] (Outpatient), [address] [place], [address], 05/26/2024 11:10:41 C reactive protein, QN, serum or plasma 2023 024 [facility] (Outpatient), [address] [place] [address], [id number], 05/26/2024 11:10:41 Referral dermatolo gist referral - has appt jun [id number] [email or web address] 10 [facility], [address] [place], [address], 06/09/2025 09:28:22 Procedures None recorded. Surgeries None recorded. Imaging bone density 2024 025 [email or web address] 10 [facility] Central Scheduling (Not Breast), [address] [place] [address], [id number], 05/26/2025 12:39:41 CT, abdomen + pelvis, w/o contrast 2023 024 [facility], [address] [facility], [place], [address], 05/27/2024 15:06:34 Medication Orders cevimelin e 30 mg capsule 2024 025 [id number], [address], [place], [phone], 08/16/2025 15:02:02 cephalexi n 500 mg capsule 2024 025 [facility] #[id number], [address], [place], [id number], 05/26/2025 05:02:12 bupropion HCl 100 mg tablet 2024 025 [facility] #[id number], [address], [place], [phone], 04/07/2025 14:42:08 semagluti de 3 mg tablet 2023 024 [place] [facility], [address], [address], [place], [address], 01/20/2024 09:45:32 Patient TargetsNo targets recorded. 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 Problems Name Problem SNOMED Code Status Onset Date Resolution Date Notes Provider Name and Address Organization Details Recorded Time Hyperchol esterolem ia 67486573 Active 2017 Not Available [facility] 4 14:18:41 [place]enom[place] us polyp of colon 529078996 Active 2017 Not Available [facility] 4 14:18:41 Anxiety 93407918 Active 2017 Not Available [facility] 4 14:18:41 Type 2 diabetes mellitus 59444594 Active 2020 SAPNA THURMAN [address] [place], [address], [facility] 5 13:55:07 Depressiv e disorder 21660814 Active 2021 Not Available [facility] 4 14:18:41 Low back pain 035483917 Active 2021 Not Available [facility] 4 14:18:41 Kidney stone 56906789 Active 2021 Not Available [facility] 4 14:18:41 Lumbago with sciatica 097233866 Active 2022 Not Available [facility] 4 14:18:41 Acute bronchiti s 64280126 Active 2022 Not Available [facility] 4 14:18:41 Lesion of skin of face 384393333914 Active 2023 SAPNA THURMAN [address] [place], [address], [facility] 4 14:23:00 Pneumonia 595072743 Active 2023 SAPNA THURMAN [address] [place], [address], [facility] 4 14:38:48 Jaundice 87933192 Active 2023 SAPNA THURMAN [address] [place], [address], [facility] 4 11:06:22 Hyperglyc emia 47979439 Active 2023 SAPNA THURMAN [address] [place] [address], [address], [facility] 4 11:11:39 Malignant neoplasm of pancreas 017740944 Active 2023 SAPNA THURMAN [address] [place] [address], [address], [facility] 4 12:30:54 Depressed mood 080421699 Active 2024 Sebastián Cutler, DO [address] [place] [address], [address], [facility] 5 14:40:42 Impetigo 62402587 Active 2024 Sebastián Cutler DO [address] [place] [address], [address], [facility] 5 14:29:34 Urinary frequency due to benign prostatic hypertrop 354387284920 102 Active 2024 Sebastián Cutler DO [address] [place] [address], [address], [facility] 5 14:30:04 Actinic keratosis 504718248 Active 2024 Sebastián Cutler DO [address] [place] [address], [address], [facility] 5 14:32:58 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 824192705 Active 2024 Sebastián Cutler DO [address] [place] [address], [address], [facility] 5 14:37:40 Mixed conductiv e and sensorine ural hearing loss, bilateral 696947970 Active 2024 Sebastián Cutler DO [address] [place] [address], [address], [facility] 5 22:03:02 Gastroeso phageal reflux disease 877862731 Active 2024 Sebastián Cutler DO [address] [place] [address], [address], [facility] 13:46:58 Xerostomi a 34315619 Active 2024 Sebastián Cutler, DO [address] [facility], [place], [address], [facility] 15:00:25 Notes:Some problems listed i n Documents: #[id number], #[id number], #[id number] could not be added to this patient's chart. Please review these documents and add these problems to the patient's chart manually as needed. Problem Notes None recorded. Procedures Surgical History Date Name Laterality Status Provider Name and Address Organization Details Recorded Time 7 Colonoscopy completed Lexis Hardwickmonica [facility] 05/27/2018 16:11:45 Imaging Results None recorded. Procedure Notes None recorded. Medical Equipment None Reported. Allergies No known drug allergies Medications Name Sig Start Date Stop Date Status Note LastModified by Organization Details LastModified Time nateglinide 120 mg tablet TAKE 1 TABLET BY MOUTH THREE TIMES DAILY 10/10 completed Not Available Not Available Not Available atorvastati n 40 mg tablet TAKE 1 TABLET BY MOUTH EVERY DAY 03/27 completed Not Available Not Available Not Available metformin 500 mg tablet TAKE 1 TABLET BY MOUTH EVERY DAY 12/28 completed Not Available Not Available Not Available atorvastati n 80 mg tablet TAKE 1 TABLET BY MOUTH EVERY DAY 2024 active Not Available Not Available Not Avai lable prednisone 10 mg tablet 40 mg x 2 days30 mg x 2 days20 mg x 2 days10 mg x 2 days 2023 active Not Available Not Available Not Avai lable citalopram 40 mg tablet TAKE 1 TABLET BY MOUTH DAILY 2024 active Not Available Not Available Not Avai lable azithromyci n 250 mg tablet TAKE 2 TABLETS (500 MG) BY ORAL ROUTE ONCE DAILY FOR 1 DAY THEN 1 TABLET (250 MG) BY ORAL ROUTE ONCE DAILY FOR 4 DAYS 10/18 completed Not Available Not Available Not Available benzonatate 200 mg capsule Take 1 capsule 3 times a day by oral route as needed for 14 days. 05/12 completed Not Available Not Available Not Available glipizide ER 10 mg tablet, extended release 24 hr TAKE 1 TABLET BY MOUTH EVERY DAY 05/12 completed Not Available Not Available Not Available meloxicam 15 mg tablet Take 1 tablet every day by oral route with meals for 30 days. 12/28 completed Not Available Not Available Not Available sertraline 100 mg tablet TAKE 1 TABLET BY MOUTH EVERY DAY 10/18 completed Not Available Not Available Not Available glipizide ER 5 mg tablet, extended release 24 hr TAKE 1 TABLET BY MOUTH EVERY DAY 06/13 completed Not Available Not Available Not Available ciprofloxac in 500 mg tablet Take 1 tablet every 12 hours by oral route for 7 days. 08/15 completed Not Available Not Available Not Available tramadol 50 mg tablet Take 1 tablet every 6 hours by oral route as needed for 7 days. 10/10 completed Not Available Not Available Not Available bupropion HCl 100 mg tablet Take 1 tablet twice a day by oral route for 30 days. 2024 active Not Available Not Available Not Avai lable famotidine 20 mg tablet Take 1 tablet twice a day by oral route for 90 days. 2024 active Not Available Not Available Not Avai lable lorazepam 0.5 mg tablet TAKE 1 TABLET BY MOUTH TWICE DAILY FOR 14 DAYS NEEDED 2024 active Not Available Not Available Not Avai lable tamsulosin 0.4 mg capsule Take 1 capsule every day by oral route for 30 days. 10/10 completed Not Available Not Available Not Available dicyclomine 20 mg tablet 05/28 completed Not Available Not Available Not Available cephalexin 500 mg capsule Take 1 capsule 3 times a day by oral route for 7 days. 05/26 completed Not Available Not Available Not Available cevimeline 30 mg capsule TAKE 1 CAPSULE BY MOUTH THREE TIMES DAILY 2024 active Not Available Not Available Not Avai lable gabapentin 300 mg capsule Take 1 capsule every day by oral route for 30 days. 10/18 completed Not Available Not Available Not Available sertraline 25 mg tablet TAKE 1 TABLET BY MOUTH EVERY DAY 10/18 completed Not Available Not Available Not Available metformin ER 500 mg tablet,exte nded release 24 hr TAKE 1 TABLET BY MOUTH TWICE DAILY 12/20 completed Not Available Not Available Not Available sertraline 50 mg tablet TAKE 1 TABLET BY MOUTH EVERY DAY 09/15 completed Not Available Not Available Not Available amoxicillin 875 mg-chaim m clavulanate 125 mg tablet Take 1 tablet every 12 hours by oral route for 10 days. 04/07 completed Not Available Not Available Not Available Boostrix Tdap 2.5 Lf unit-8 mcg-5 Lf/0.5 mL intramuscul ar syringe 12/07 completed Not Available Not Available Not Available Januvia 25 mg tablet Take 1 tablet every day by oral route for 30 days, for T2DM. 01/19 completed Not Available Not Available Not Available Januvia 100 mg tablet Take 1 tablet every day by oral route for 30 days. 08/15 completed Not Available Not Available Not Available hydrochloro thiazide 12.5 mg tablet Take 1 tablet every day by oral route for 7 days. 10/10 completed Not Available Not Available Not Available Lantus Solostar U-100 Insulin 100 unit/mL (3 mL) subcutaneou s pen Inject 12 units every day by subcutane ous route at bedtime for 30 days. 2023 active Not Available Not Available Not Avai lable Humalog KwikPen (U-100) Insulin 100 unit/mL subcutaneou s Inject 10 units 3 times a day by subcutane ous route for 30 days. 2023 active Not Available Not Available Not Avai lable GaviLyte-G 236 gram-22.74 gram-6.74 gram-5.86 gram oral solution 01/19 completed Not Available Not Available Not Available OneTouch Verio test strips Take 1 strip 3 times a day by miscell. route for 90 days. 05/12 completed Not Available Not Available Not Available Ozempic 0.25 mg or 0.5 mg (2 mg/1.5 mL) subcutaneou s pen injector 01/19 completed Not Available Not Available Not Available Rybelsus 7 mg tablet Take 1 tablet every day by oral route for 90 days. 10/18 completed Not Available Not Available Not Available semaglutide 3 mg tablet Take 1 tablet every day by oral route for 90 days. 2023 active Not Available Not Available Not Avai lable COVID-19 test specimen collection TEST DIRECTED TODAY 12/20 completed Not Available Not Available Not Available BinaxNOW COVID-19 Ag Self Test kit TEST DIRECTED TODAY 08/15 completed Not Available Not Available Not Available FreeStyle Miguel 3 Sensor Apply 1 scensor every 14 days as directed active Not Available Not Available No t Available Vitals Date Recorded Body height Body mass index (BMI) Body weight Heart rate Oxygen saturation Systolic And Diastolic Provider Name and Address Organization Details Last Updated DateTime 4 175.26 cm 26.6 kg/m2 59829.6 3 g 74 /min 99 % 126/76 mm[Hg] Alvino Ernandez [facility] 4 09:29:14 Date Recorded Body weight Heart rate Oxygen saturation Systolic And Diastolic Provider Name and Address Organization Details Last Updated DateTime 04/07/2025 96934.63 g 110 /min 97 % 122/78 mm[Hg] Eli Concepcion [facility] 04/07/2025 14:13:30 Date Recorded Body weight Oxygen saturation Heart rate Systolic And Diastolic Provider Name and Address Organization Details Last Updated DateTime 05/12/2025 74274.63 g 98 % 90 /min 114/72 mm[Hg] VENANCIO ADAMS [facility] 05/12/2025 14:14:39 Date Recorded Body height Body mass index (BMI) Body weight Heart rate Oxygen saturation Systolic And Diastolic Provider Name and Address Organization Details Last Updated DateTime 5 175.26 cm 26.6 kg/m2 41407.6 3 g 78 /min 98 % 130/68 mm[Hg] Eli Concepcion [facility] 5 14:24:29 Social History Question Answer Notes LastModified by Organizat ion Details LastModified Time Tobacco Smoking Status Never Smoker Not Available [facility] 08/02/2020 03:36:24 What Was The Date Of Your Most Recent Tobacco Screening? 08/16/2025 [email or web address] Information not available 08/16/2025 Sex: Unknown Functional Status Question Answer Note LastModified by Organization D etails LastModified Time Do you or have you ever used any other forms of tobacco or nicotine? No [email or web address] Information not available 12/28/2022 Mental Status None recorded. Family History Relationship Description Onset Age of this Age Resolved Age Notes LastModified by Organization Details LastModified Time Father No current problems or disability [email or web address] Not available 03/19 13:44:12 Mother No current problems or disability [email or web address] Not available 03/19 13:44:12 Medical History No medical history recorded. Immunizations Vaccine Type Date Status Note Provider Nam e and Address Organization Details Recorded Time COVID-19, mRNA, LNP-S, PF, 30 mcg/0.3 mL dose 1 completed Not Available [facility] 10/21/2023 14:18:41 Influenza, split virus, quadrivalent, preservative 8 completed Not Available [facility] 10/21/2023 14:18:41 COVID-19, mRNA, LNP-S, PF, 30 mcg/0.3 mL dose 2 completed Not Available [facility] 10/21/2023 14:18:41 Influenza, split virus, quadrivalent, preservative 9 completed Not Available [facility] 10/21/2023 14:18:41 Tdap 0 completed Not Available [facility] 10/21/2023 14:18:41 Influenza, split virus, quadrivalent, preservative 0 completed Not Available [facility] 10/21/2023 14:18:41 pneumococcal polysaccharide PPV23 8 completed Not Available [facility] 10/21/2023 14:18:41 COVID-19, mRNA, LNP-S, PF, 30 mcg/0.3 mL dose 1 completed Not Available [facility] 10/21/2023 14:18:41 COVID-19, mRNA, LNP-S, PF, 30 mcg/0.3 mL dose 1 completed Not Available [facility] 10/21/2023 14:18:41 Past Encounters Encounter ID Performer Location Encounter Start Date Encounter Closed Date Diagnosis/Indication Diagnosis SNOMED-CT Code Diagnosis ICD10 Code Diagnosis IMO Codes Diagnosis Note [id number] Sebastián Cutler [facility] [address] [address] 05/28/2018 14:48:04 05/28/2018 17:14:05 Hypercholesterolemia 94516793 E78.00 Impaired f asting glycemia 865972979 R73.01 Generalize d anxiety disorder 75988955 F41.1 [id number] Sebastián Cutler [facility] [address] [facility],[place] [address] 03/17/2019 09:57:29 03/17/2019 11:50:39 Hypercholesterolemia 31582590 E78.00 borderline will monitor Impaired f asting glycemia 953409772 R73.01 diet counsellin g a1c 7.2, with diet control, believe we can improve with diet alone Generalize d anxiety disorder 59922976 F41.1 [id number] December MILLIE Ramos [facility] [address],[place] [address] 10/14/2019 14:17:29 10/14/2019 15:09:23 Adenomatous polyp of colon 758042657 D12.6 Impaired f asting glycemia 501921508 R73.01 a1c 7.0, improved form 7.2 Hypercholesterolemia 136 19735 E78.00 borderline will monitor Anxiety 64312376 F41.9 Advance care planning 71 4384052 Z71.89 hcp ppw provided Adult [facility] th examination 830953275 Z00.00 will schedule MWV, labs ordered ahead of time Vitamin D deficiency 347 67482 E55.9 Body mass index 25-29 - overweight 885543000 Z68.26 slightly elvated bmi, normal waist circumfere nce emphasize healthy diet choices and exercise [id number] Sebastián Cutler [facility] [address],[place] [address] 08/01/2020 11:51:16 08/01/2020 12:17:32 Anxiety 82698492 F41.9 stable Hypercholesterolemia 136 06967 E78.00 will need recheck to verfiy levels Impaired f asting glycemia 864382415 R73.01 needs BW panel recheck [id number] Sebastián Cutler [facility] [address] [address] 03/27/2021 14:17:00 03/27/2021 14:49:18 Type 2 diabetes mellitus 27954725 E11.9 will submit bw standing order Anxiety 34829872 F41.9 stable Hypercholesterolemia 136 83639 E78.00 cholestero l much improved [id number] Sebastián Cutler [facility] [address] [facility] [address] [address] 05/19/2021 15:31:13 05/19/2021 16:29:17 Anxiety 71277958 F41.1 stable Memory impairment 930499 006 R41.3 will fu with check CT and labs [id number] Sebastián Cutler [facility] [address] [facility] [address] [place] [address] 06/20/2021 08:08:22 06/20/2021 16:37:28 Memory impairment 039889085 R41.3 will fu with check CT and labs Type 2 lidia betes mellitus 15225022 E11.9 will submit bw standing orderwill recheck in 3 moA1c improved Anxiety 59855999 F41.1 stable on medication [id number] Sebastián Cutler [facility] [address] [facility] [address] [place] [address] 12/20/2021 15:44:29 12/22/2021 08:48:03 Type 2 diabetes mellitus 60621982 E11.9 will submit bw standing orderwill recheck in 3 moA1c improved Impaired f asting glycemia 199312418 R73.01 needs BW panel recheck Hyperlipidemia 76555131 E78.5 stable Depressive disorder 3548 9007 F32.9 F32.0 stable [id number] [facility] [address] [address] 06/13/2022 15:15:38 06/13/2022 16:09:40 Type 2 diabetes mellitus 33662794 E11.9 will start on glipizide Anxiety 80902469 F41.1 thinks he is getting bruxisim from being on itstarted a while ago but just thought it may be a med side effect recently [id number] Sebastián Cutler [facility] [address] [facility] [address] [address] 08/15/2022 10:57:40 08/15/2022 15:43:01 Type 2 diabetes mellitus 74647743 E11.9 will stay on glipizide and add nateglinid e 120 mgmetformi n causes diarrhea and januvia is too expensive Anxiety 71499553 F41.1 stable 94855 Sebastián Cutler [facility] [address] [facility] [address] [address] 10/10/2022 14:00:32 10/11/2022 08:16:31 Lumbago with sciatica 805753336 M54.42 will start on meloxicam and jaky Type 2 lidia betes mellitus 24005765 E11.9 will start back on the metformin 26195 Sebastián Cutler [facility] [address] [facility] [address] [address] 12/28/2022 14:07:51 12/31/2022 10:45:24 Type 2 diabetes mellitus 83073678 E11.9 up the rybelsus to 7 mg Depressive disorder 3548 9007 F32.0 stable on current zoloft dosage 56802 Sebastián Cutler [facility] [address] [facility] [address] [address] 03/19/2023 13:28:52 03/19/2023 15:01:09 Depressive disorder 59869471 F32.0 stable on current zoloft dosage Hypercholesterolemia 136 49169 E78.2 stableno side effects Type 2 lidia betes mellitus 69060375 E11.9 stable on medafforda ble for patientno side effects [id number] Sebastián Cutler [facility] [address] [facility] [address] [address] 10/18/2023 11:33:56 10/18/2023 13:56:14 Depressive disorder 71864398 F32.0 stablewill switch out the celexa again, sertaline doesn't work as well Type 2 lidia betes mellitus 66090025 E11.9 start on low dose januvia with glipizide 215115 Sebastián Cutler, [facility] [address] [facility] [address] [address] 01/20/2024 09:18:59 01/20/2024 12:08:43 Type 2 diabetes mellitus 26903770 E11.9 will try adding an additional medication thinking delores ll try running it through optum Renewal of prescription 336194231 Z76.0 discussed starting new medication for T2DM [id number] Sebastián Cutler, [facility] [address] [facility] [address] [address] 05/26/2024 11:03:50 05/26/2024 14:09:16 Jaundice 85936145 R17 will submit STAT work up Hyperglycemia 28342767 R 73.01 related to pancreatit is/hepatit is vs stone lodged in duct??dirk ot exclude pancreatic carcinoma either as a possible cause [id number] Sebastián Cutler, [facility] [address] [facility] [address] [address] 04/07/2025 14:03:58 04/07/2025 14:55:34 Hypercholesterolemia 49488939 E78.2 Depression screening 171 240581 Z13.31 pos will addbuprop1 00 Type 2 lidia betes mellitus 56844509 E11.9 Z79.4 05311151 Depressed mood 676132004 R45.89 5190939 239012 Sebastián Cutler, [facility] [address] [facility] [address] [address] 05/12/2025 14:02:53 05/12/2025 15:17:34 Depression screening 373825568 Z13.31 pos will addbuprop1 00 Type 2 lidia betes mellitus 31169405 E11.9 Z79.4 33400068 Malignant neoplasm of pancreas 037804920 C25.0 follow up with oncology and is doing great s/p resection Impetigo 68149222 L01.00 94902 Urinary fr equency due to benign prostatic hypertrophy 4111645001 18387 N40.1 R35.0 77132434 Actinic keratosis L57.0 43331 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 2 1435715061 will try a silagogue as he sees dentist no gerd or coffee or smoking etc drinks water all day Health Concerns Section Related Observation LastModified by Organization Detai ls LastModified Time None Recorded Concern Status LastModified by Organization Details LastModified Time None Recorded Advance Directives Directive None Recorded Payers Insurance Date Sequence Insurance Name Policy Number Policy Cm Covered Member ID Cm Member ID Guarantor Name 08/11/2025 2 MEDICARE [place]: [employer] Gaurav Arreola [id number] Gaurav Arreola 08/13/2025 1 [facility] - MEDICARE PREFERRED (MEDICARE REPLACEMENT HMO) [facility] [id number] Gaurav Arreola Notes Date Note Type Note Provider Name and Address Organization Details Recorded Time 01/20/20 24 text/htm l ROS as noted in the HPI T2DM: will try adding additional working on pricing for patient to be reasonablegiven alt to see which is cheaper for him will fu with him to let me know SAPNA THURMAN [address] [facility], [place], [address], [facility] [place] [facility] 01/20/2024 09:48:39 05/26/20 24 text/htm l ROS as noted in the HPI c/o elevated sugar The patient is participating in this appointment via telemedicine communication with a phone call/video calling service (Doxy)The patient consents to use of these platforms in place of an in-person appointment due to either sick symptoms the patient is presenting with or current office closure due to COVID exposure in order to keep our office staff and patients safe the patient developed acute onset hyperglycemia, jaundice, RUQ pain, bloating, nausea, loss of appetite and odd taste in his mouthstarted about a week or so ago, slowly getting worse recommended lab work and STAT CT of his abdomen to check his liver, pancrease and gallbladdercould be pancreatitis, hepatitis, gallstone in the common duct, pancreatic carcinoma patient agreed to this plan of actionwill submit order to [facility] and lab work to [facility] per patient requestall put in STAT given very serious nature of these conditions SAPNA THURMAN [address] [place], [address], [facility] [place] [facility] 05/26/2024 11:19:22 04/07/20 25 text/htm l Care Management - DiabetesReported by PatientHPIFor self care, patient reportsseeing eye doctor yearly for dilated eye exam,checking feet regularly,normal range of home blood sugars (in the low 100s), andno side effects from medications. For associated symptoms, patient reportssymptoms are usually well controlled,no fatigue,no dizziness,no excessive sweating,no headaches,no confusion,no increased thirst,no increased appetite,no increased urination,no blurred vision,no numbness of feet, andno calluses on feet. Care Management - HyperlipidemiaReported by PatientHPIFor control, patient reportsusually well controlled,improving, andat goal. For complications, patient reportsno coronary artery disease,no heart attack,no cardiovascular disease,no pancreatitis, andno stroke.ROS as noted in the HPI here for follow up doing ok overall since surger although very weakrelates that he is slowly recovering not sleeping well no energy and has been quite depressed until yesterday was told surgery had clear margins and negative nodes Sebastián Cutler DO [address] [facility], [place], [address], [facility] [place] [facility] 04/07/2025 14:43:19 05/12/20 25 text/htm l Care Management - DiabetesReported by PatientROS as noted in the HPI here for rechk and relates that he is still having pain in his ruq at incision site for the pancreatic cathis has been located just under the rib and around scar tissuealso was told in [place] that the port for chemo was put in the wrong site also had a IJ thrombus Sebastián Cutler DO [address] [place], [address], [facility] [place] [facility] 05/12/2025 14:39:44 08/16/20 25 text/htm l Care Management - DiabetesReported by PatientHPIFor self care, patient reportsseeing eye doctor yearly for dilated eye exam,checking feet regularly,normal range of home blood sugars (in the low 100s), andno side effects from medications. For associated symptoms, patient reportssymptoms are usually well controlled,no fatigue,no dizziness,no excessive sweating,no headaches,no confusion,no increased thirst,no increased appetite,no increased urination,no blurred vision,no numbness of feet, andno calluses on feet.slowly getting better sleeps a lot ROS as noted in the HPI Sebastián Cutler, [address] [place], [address], [facility] [place] [facility] 08/16/2025 15:07:06
--- OUTSIDE RECORDS SUMMARY | 2025-08-23 15:34 | XMS_ITS | Encounter Summary ---
Author Organization [facility] Address [address] [facility] [address] [place] [address] Phone Care Team Providers Care Ingot Weigher Name Role Phone Sebastián Guillen DO Primary Care Provider [phone] Jill Estrada MBBS Unavailable [phone] Pcp, Unknown Primary Care Provider Unavailabl Shireen France ASSAULT AMPHIBIOUS VEHICLE OFFICER Unavailable Maritza Vazquez DRIVER STARTING GATE Unavailable + [phone] Bigda, Sebastián A DO Primary Care Provider [phone] Bigda, Sebastián A DO Primary Care Provider [phone] Encounter Details Date Type Department Care Team (Late st Contact Info) Description 10/01/2017 Ancillary Orders Virtual Department [address] [place] [address] Michelle Ascencio ASSAULT AMPHIBIOUS VEHICLE OFFICER [address] [place] [address] Abdominal cramping Social History Tobacco Use Types Packs/Day Years [...] st Contact Info) Description 06/17/2025 Procedure Pass [facility], Ct Scan [address] [address] 06/17/2025 Procedure Pass [facility] Ct [address] [address] 09/08/2025 3:15 PM EST Appointment [address] [address] Jill Estrada MBBS [address] [place] [address] [email or web address] 09/09/2025 1:40 PM EST Office Visit [facility] [address] [place] [address] Prakash Zambrano [address] [address] 09/15/2025 2:00 PM EST Office Visit [facility] at [address] [address] Jill Estrada MBBS [address] [place] [address] [email or web address] 09/24/2025 7:00 PM EST Appointment [facility], Bone Density - [address] [address] Sebastián Guillen DO [address] [place] [address] documented as of this encounter Results * FL UGI SERIES DOUBLE CONTRAST AND SMALL BOWEL (10/07/2017 12:07 PM EST) Anatomical Region Laterality Modality Abdomen Radiographic Maricel ging 10/07/2017 1:25 PM EST Impressions 10/07/2017 1:38 PM EST 1. Moderate esophageal dysmotility. Small hiatal hernia. No other significant upper GI abnormalities. 2. The terminal ileum appears narrow on multiple images. This is felt likely to be due to peristalsis. No evidence of small bowel obstruction. No other small bowel abnormalities demonstrated. FLUOROSCOPY TIME: 3 min. 0 sec; 42 IMAGES/FRAMES POS - [id number] Narrative 10/07/2017 1:38 PM EST HISTORY: Cramping abdominal pain. COMPARISON: None. EXAM: Biphasic upper GI series and small bowel follow-through. FINDINGS: Hat Body Sorter abdominal radiograph obtained. There is moderate gaseous distention of portions of the colon. Moderate-large amount of stool within the colon. No marked bowel distention. No evidence of esophageal strictures although there is moderate diffuse esophageal dysmotility. Multiple tertiary contractions. Mild to and fro motion of barium within the esophagus. No findings suspicious for intrinsic or extrinsic masses. The mucosa appears grossly intact. No gastroesophageal reflux demonstrated during the exam. Small sliding-type hiatal hernia. The stomach distends normally. Rugal fold pattern normal. No definite ulcerations no findings suspicious for gastric masses. No evidence of gastric outlet obstruction. The duodenum appears normal. Small bowel caliber normal. No suspicious loop separation. No definite mucosal abnormalities. The terminal ileum appears narrow on multiple images and is somewhat difficult to distend during fluoroscopy. No definite mucosal abnormalities demonstrated within the terminal ileum. No other evidence of small bowel strictures. Transit time of barium through the small bowel is within normal limits with barium reaching the cecum on the 2 hour and 45 minute abdominal radiograph. Procedure Note Darin Garcia MD - 10/07/2017 HISTORY: Cramping abdominal pain. COMPARISON: None. EXAM: Biphasic upper GI series and small bowel follow-through. FINDINGS: Hat Body Sorter abdominal radiograph obtained. There is moderate gaseous distentionof portions of the colon. Moderate-large amount of stool within thecolon. No marked bowel distention. No evidence of esophageal strictures although there is moderate diffuseesophageal dysmotility. Multiple tertiary contractions. Mild to and fromotion of barium within the esophagus. No findings suspicious forintrinsic or extrinsic masses. The mucosa appears grossly intact. Nogastroesophageal reflux demonstrated during the exam. Small sliding-typehiatal hernia. The stomach distends normally. Rugal fold pattern normal. No definiteulcerations no findings suspicious for gastric masses. No evidence ofgastric outlet obstruction. The duodenum appears normal. Small bowel caliber normal. No suspicious loop separation. No definitemucosal abnormalities. The terminal ileum appears narrow on multipleimages and is somewhat difficult to distend during fluoroscopy. Nodefinite mucosal abnormalities demonstrated within the terminal ileum. Noother evidence of small bowel strictures. Transit time of barium throughthe small bowel is within normal limits with barium reaching the cecum onthe 2 hour and 45 minute abdominal radiograph. IMPRESSION: 1. Moderate esophageal dysmotility. Small hiatal hernia. No othersignificant upper GI abnormalities. 2. The terminal ileum appears narrow on multiple images. This is feltlikely to be due to peristalsis. No evidence of small bowel obstruction.No other small bowel abnormalities demonstrated. FLUOROSCOPY TIME: 3 min. 0 sec; 42 IMAGES/FRAMES POS - [id number] Michelle Ascencio CNP [facility] Final Resul t documented in this encounter Visit Diagnoses Diagnosis Abdominal cramping Abdominal pain, unspecified site Abdominal cramping Abdominal pain, unspecified site documented in this encounter Care Teams Ingot Weigher Relationship Specialty Start Date End Date Sebastián Guillen DO PCP - General Internal Medicine 09/10/17 07/27/24 Pcp, Unknown PCP - General 10/08/24 10/13/24 Sebastián Guillen DO [address] [place] [address] PCP - General Internal Medicine 10/14/24 Sebastián Guillen DO [address] [place] [address] [email or web address] PCP - General 08/17/24 10/07/24 Jill Estrada MBBS [email or web address] Medical Oncology 07/09/24 Shireen Galicia CNP [address] [place] [address] [email or web address] Nurse Practitioner 10/08/24 Maritza Vazquez NP [address] [place] [address] [email or web address] Nurse Practitioner 10/13/24 documented as of this encounter Additional Source Comments The information contained in this document represents components of the legal health record. It is not the complete legal health record.[facility]
--- OUTSIDE RECORDS SUMMARY | 2025-08-23 15:34 | XMS_ITS | Encounter Summary ---
Author Organization [facility] Address [address] [employer] [facility] [address] [place] [address] Phone Care Team Providers Care Storage Consultant Name Role Phone Sebastián Guillen DO Primary Care Provider + Jill Estrada MBBS Unavailable + Pcp, Unknown Primary Care Provider Unavailabl Shireen France APPRENTICE STYLIST Unavailable Maritza Vazquez THERAPIST PHYSICAL Unavailable [phone] Bigjesus manuel, Sebastián A DO Primary Care Provider + Bigda, Sebastián A DO Primary Care Provider + Encounter Details Date Type Department Care Team (Late st Contact Info) Description 11/11/2017 Procedure Pass [facility], Ct Scan - [address] [address] Social History Tobacco Use Types Packs/Day Years [...] st Contact Info) Description 06/17/2025 Procedure Pass [facility] Ct Scan [address] [address] 06/17/2025 Procedure Pass [address] [address] 09/08/2025 3:15 PM EST Appointment [address] [address] Jill Estrada MBBS [address] [place] [address] [email or web address] 09/09/2025 1:40 PM EST Office Visit [facility] [address] [address] Prakash Zambrano DO [address] [place] [address] [email or web address] 09/15/2025 2:00 PM EST Office Visit [facility] at [address] [address] Jill Estrada MBBS [address] [place] [address] [email or web address] 09/24/2025 7:00 PM EST Appointment [facility] Bone Density - [address] [address] Sebastián Guillen DO [address] [facility] [place] [address] documented as of this encounter Visit Diagnoses Not on filedocumented in this encounter Care Teams Storage Consultant Relationship Specialty Start Date End Date Sebastián Guillen DO PCP - General Internal Medicine 09/10/17 07/27/24 Pcp, Unknown PCP - General 10/08/24 10/13/24 Sebastián Guillen DO [address] [place] [address] PCP - General Internal Medicine 10/14/24 Sebastián Guillen DO [address] [place] [address] PCP - General 08/17/24 10/07/24 Jill Estrada MBBS [email or web address] Medical Oncology 07/09/24 Shireen Galicia CNP [address] [place] [address] Nurse Practitioner 10/08/24 Maritza Vazquez NP [address] [place] [address] [email or web address] Nurse Practitioner 10/13/24 documented as of this encounter Additional Source Comments The information contained in this document represents components of the legal health record. It is not the complete legal health record.[facility]
--- OUTSIDE RECORDS SUMMARY | 2025-08-23 15:34 | XMS_ITS | Clinical Summary ---
Author Organization [facility] Address [address] [place] [id number] Phone Care Team Providers Care Long Wall Shear Operator Name Role Phone Jill Estrada MBBS Unavailable Shireen Galicia LITIGATION SERVICES MANAGER Unavailable Maritza Vazquez [employer] Unavailable [phone] Stefan Cutler DO Primary Care Provider [phone] Allergies No known active allergies Medications citalopram (CELEXA) 40 MG tablet Take 40 mg by mouth daily. Active atorvastatin (LIPITOR) 80 MG tablet Take 80 mg by mouth daily. Active insulin lispro (ADMELOG, HUMALOG) 100 unit/mL injection vial Inject 2 Units under the skin 3 (three) times a day with meals. 1.8 mL 1 03/17/20 25 Active famotidine (PEPCID) 20 MG tablet Take 1 tablet (20 mg total) by mouth 2 (two) times a day. 04/16/20 25 Active insulin syringe-needl e U-100 1 mL 31 gauge x 5/16 Syrg 1 each by Miscellaneous route as needed (for insulin application). 100 each 03/17/20 25 Active buPROPion (WELLBUTRIN) 100 MG immediate release tablet Take 100 mg by mouth daily. 04/07/20 25 Active FREESTYLE MIGUEL 3 PLUS SENSOR Roseanne 05/04/20 25 Active empagliflozin (JARDIANCE) 10 mg tabletIndicat ions:Type 2 diabetes mellitus with diabetic polyneuropath y, with long-term current use of insulin Take 1 tablet (10 mg total) by mouth daily. 90 tablet 07/20/20 25 Active insulin glargine (LANTUS SOLOSTAR U-100 INSULIN) 100 unit/mL (3 mL) InPn injection penIndication s:Type 2 diabetes mellitus with diabetic polyneuropath y, with long-term current use of insulin ADMINISTER 16 UNITS UNDER THE SKIN EVERY NIGHT AT BEDTIME 15 mL 08/20/20 25 Active insulin lispro (ADMELOG, HUMALOG) 100 unit/mL injection pen USE THREE TIMES DAILY BEFORE MEALS. SCALE:70-100=8U, 101-150=10U, 151-200=12U, 201-250=14U, 251-300=16U, 301-350=18U, 351-400=20U,> 400=22U 15 mL 08/20/20 25 Active insulin pen needles, disposable, (ULTRA-FINE PEN NEEDLE) 31 gauge x 5/16 NdleIndicatio ns:Type 2 diabetes mellitus with diabetic polyneuropath y, with long-term current use of insulin USE 1 EACH BY MISCELLANEOUS ROUTE 4 TIMES A DAY BEFORE MEALS AND NIGHTLY 400 each 3 08/20/20 25 Active insulin pen needles, disposable, 31 gauge x 5/16 NdleIndicatio ns:Type 2 diabetes mellitus with diabetic polyneuropath y, with long-term current use of insulin 1 each by Miscellaneous route 4 (four) times a day before meals and nightly. 400 each 3 03/17/20 25 2024 Discontinued insulin glargine (LANTUS SOLOSTAR U-100 INSULIN) 100 unit/mL (3 mL) InPn injection penIndication s:Type 2 diabetes mellitus with diabetic polyneuropath y, with long-term current use of insulin Inject 16 Units under the skin nightly at bedtime. 15 mL 05/17/20 25 2024 Discontinued LANTUS SOLOSTAR U-100 INSULIN 100 unit/mL (3 mL) InPn injection penIndication s:Type 2 diabetes mellitus with diabetic polyneuropath y, with long-term current use of insulin ADMINISTER 16 UNITS UNDER THE SKIN EVERY NIGHT AT BEDTIME 15 mL 08/12/20 25 2024 Discontinued(R eorder) insulin lispro (ADMELOG, HUMALOG) 100 unit/mL injection pen USE THREE TIMES DAILY BEFORE MEALS. SCALE:70-100=8U, 101-150=10U, 151-200=12U, 201-250=14U, 251-300=16U, 301-350=18U, 351-400=20U,> 400=22U 15 mL 1 08/12/20 25 2024 Discontinued(R eorder) ULTRA-FINE PEN NEEDLE 31 gauge x 02/12 NdleIndicatio ns:Type 2 diabetes mellitus with diabetic polyneuropath y, with long-term current use of insulin USE 1 EACH BY MISCELLANEOUS ROUTE 4 TIMES A DAY BEFORE MEALS AND NIGHTLY 400 each 3 08/16/20 25 2024 Discontinued(R eorder) Active Problems Problem Noted Date Diagnosed Date History of DVT (deep vein thrombosis) 06/17/2025 Anemia in other chronic diseases classified else where 04/30/2025 Functional diarrhea 09/14/2024 Malignant neoplasm of head of pancreas Cancer Staging:Pathologic stage from 03/10/2025:Stage IB(ypT2, pN0, cM0) - Signed by Jill Estrada MBBS on 04/30/2025 Assessment & Plan (06/17/2025 9:42 AM EDT): IMPRESSION: This is a 74-year-old man with the following diagnoses: 05/2024: He is 12 months out from the diagnosis of 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 Pulmonary nodules - benign -resolved Anemia, mild -anemia of chronic disease -almost resolved History of upper extremity DVT secondary to PORT DISCUSSION: I discussed overall impression, natural history of the disease, stage of the disease and further management in this regard. Prognosis: Pancreatic cancer unfortunately is an aggressive malignancy and carries poor prognosis despite current standard treatment options and early stage. Risk of recurrence is high even after Whipple's procedure and patient needs close surveillance. Patient was seen by [facility]. Patient was recommended to undergo neoadjuvant chemotherapy with 8 cycles of FOLFIRINOX followed by neoadjuvant chemoradiation therapy followed by surgical resection. Patient is 73 years old although with good performance status and does not have any geriatric syndromes. He does not have any significant comorbidities other than diabetes mellitus - reasonable candidate for the recommended treatment. He completed planned neoadjuvant chemotherapy with 8 cycles of FOLFIRINOX with some expected but manageable toxicity. 09/29/2024: Restaging CT scans showed some shrinkage of his primary malignancy. No evidence of metastatic disease. Pulmonary nodules are small and likely benign in nature. 12/23/2024: Restaging CT scan showed stable changes. No evidence of new or progressive disease. Stable subcentimeter pulmonary nodules. 01/28/2025: He completed planned concurrent chemo RT. 03/04/2025: Restaging CT scan of abdomen and pelvis showed stable changes. 03/10/2025: Patient underwent planned surgical resection/Whipple's procedure. Patient had a good partial response. He had follow-up in [place] and no further treatment was recommended. 06/10/2025: Surveillance CT scans were unremarkable. He has been doing very well from oncological standpoint without any evidence of cancer recurrence and I reassured him about this. I discussed surveillance as per NCCN guidelines. 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 Pulmonary nodules, subcentimeter-likely benign -continue to monitor Thrombus within the right internal jugular vein adjacent to port catheter - status post Eliquis for few months then port has been removed Anemia, mild -anemia of chronic disease DISCUSSION: I discussed overall impression, natural history of the disease, stage of the disease and further management in this regard. Prognosis: Pancreatic cancer unfortunately is an aggressive malignancy and carries poor prognosis despite current standard treatment options and early stage. Risk of recurrence is high even after Whipple's procedure and patient needs close surveillance. Patient was seen by [facility] D clinic. Patient was recommended to undergo neoadjuvant chemotherapy with 8 cycles of FOLFIRINOX followed by neoadjuvant chemoradiation therapy followed by surgical resection. Patient is 73 years old although with good performance status and does not have any geriatric syndromes. He does not have any significant comorbidities other than diabetes mellitus - reasonable candidate for the recommended treatment. He completed planned neoadjuvant chemotherapy with 8 cycles of FOLFIRINOX with some expected but manageable toxicity. 09/29/2024: Restaging CT scans showed some shrinkage of his primary malignancy. No evidence of metastatic disease. Pulmonary nodules are small and likely benign in nature. 12/23/2024: Restaging CT scan showed stable changes. No evidence of new or progressive disease. Stable subcentimeter pulmonary nodules. 01/28/2025: He completed planned concurrent chemo RT. 03/04/2025: Restaging CT scan of abdomen and pelvis showed stable changes. 03/10/2025: Patient underwent planned surgical resection/Whipple's procedure. Patient had a good partial response. He had follow-up in [place] and no further treatment was recommended. I discussed surveillance as per NCCN guidelines. 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 Weight loss Pulmonary nodules, subcentimeter-likely benign -continue to monitor Thrombus within the right internal jugular vein adjacent to port catheter - status post Eliquis for few months then port has been removed DISCUSSION: I discussed overall impression, natural history of the disease, stage of the disease and further management in this regard. Prognosis: Pancreatic cancer unfortunately is an aggressive malignancy and carries poor prognosis despite current standard treatment options and early stage. Risk of recurrence is high even after Whipple's procedure and patient needs close surveillance. Patient was seen by [facility] D [facility]. Patient was recommended to undergo neoadjuvant chemotherapy with 8 cycles of FOLFIRINOX followed by neoadjuvant chemoradiation therapy followed by surgical resection. Patient is 73 years old although with good performance status and does not have any geriatric syndromes. He does not have any significant comorbidities other than diabetes mellitus - reasonable candidate for the recommended treatment. He completed planned neoadjuvant chemotherapy with 8 cycles of FOLFIRINOX with some expected but manageable toxicity. 09/29/2024: Restaging CT scans showed some shrinkage of his primary malignancy. No evidence of metastatic disease. Pulmonary nodules are small and likely benign in nature. 12/23/2024: Restaging CT scan showed stable changes. No evidence of new or progressive disease. Stable subcentimeter pulmonary nodules. 01/28/2025: He completed planned concurrent chemo RT. 03/04/2025: Restaging CT scan of abdomen and pelvis showed stable changes. 03/10/2025: Patient underwent planned surgical resection/Whipple's procedure. Pathology is pending at this time. Patient has been recovering from his recent surgery. Continues with some exhaustion, postoperative pain, lack of appetite and weight loss issues. Advised to increase oral intake. Patient to follow-up with surgery regarding the drain. Patient should follow-up with [place] team after pathology is back. I discussed surveillance as per NCCN guidelines. RECOMMENDATIONS: I will follow up final pathology report Patient will maintain close follow-up with [place] team Next surveillance scans in 05/2025 Advised to increase oral intake Return for follow-up in 4 to 5 weeks with labs Thank you very much for allowing to participate in this patient's care Assessment & Plan (12/16/2024 3:58 PM EDT): IMPRESSION: This is a 74-year-old man with the following diagnoses: He is 6 months out from the diagnosis of Pancreatic Acinar cell carcinoma - This is early stage/resectable disease. Weight loss -resolved CIPN -resolved Hypokalemia -resolved Pulmonary nodules, subcentimeter-likely benign -continue to monitor Thrombus within the right internal jugular vein adjacent to port catheter. Shortness of breath/wheezing DISCUSSION: I discussed overall impression, natural history of the disease, stage of the disease and further management in this regard. I reviewed records from [facility]. Patient was recommended to undergo neoadjuvant chemotherapy with 8 cycles of FOLFIRINOX followed by neoadjuvant chemoradiation therapy followed by surgical resection. Patient is 73 years old although with good performance status and does not have any geriatric syndromes. He does not have any significant comorbidities other than diabetes mellitus - reasonable candidate for the recommended treatment. He completed planned neoadjuvant chemotherapy with 8 cycles of FOLFIRINOX with some expected but manageable toxicity. 09/29/2024: Restaging CT scans showed some shrinkage of his primary malignancy. No evidence of metastatic disease. Pulmonary nodules are small and likely benign in nature. 12/23/2024: Restaging CT scan showed stable changes. No evidence of new or progressive disease. Stable subcentimeter pulmonary nodules. The patient has seen Dr. Medeiros radiation oncology at [facility] and will be restarting his radiation therapy there in 2 weeks. He will be taking concurrent oral chemotherapy Xeloda with radiation therapy. I discussed side effects from this approach including but not limited to allergic reactions, skin toxicity/[id number] syndrome, pancytopenia, neutropenic fever, infection, bleeding, cardiac toxicity, renal toxicity, hepatic toxicity, pulmonary toxicity, neurotoxicity, neuropathy, GI toxicity including nausea, vomiting and diarrhea, mucositis, colitis, thrombosis and a small risk of from these complications. Patient signed informed consent today. RECOMMENDATIONS: Patient to start radiation therapy at [facility] Patient will start concurrent oral chemotherapy Xeloda 825 mg/m with radiation therapy 5 days a week I have reached out to the [place] team and patient will be following with Dr. Reddy in medical oncology during his next phase of treatment since she will be staying in [place] Continue Eliquis 5 mg every 12 hours Treatment plan: 8 cycles of neoadjuvant chemotherapy followed by concurrent chemoradiation therapy followed by surgical resection Restaging scans after chemoRT I sent a prescription for albuterol inhaler for as needed wheezing Patient will call to schedule follow-up with us here once he is back from [place] Thank you very much for allowing to participate in this patient's care Assessment & Plan (11/02/2024 9:27 AM EST): IMPRESSION: This is a 73-year-old man with the following diagnoses: He is 4 months and 2 weeks out from the diagnosis of Pancreatic Acinar cell carcinoma - This is early stage/resectable disease. Diarrhea from chemotherapy -improved/resolved Weight loss -resolved CIPN -resolved Hypokalemia -resolved Pulmonary nodules, subcentimeter-likely benign Thrombus within the right internal jugular vein adjacent to port catheter. DISCUSSION: I discussed overall impression, natural history of the disease, stage of the disease and further management in this regard. I reviewed records from [facility]. Patient was recommended to undergo neoadjuvant chemotherapy with 8 cycles of FOLFIRINOX followed by neoadjuvant chemoradiation therapy followed by surgical resection. Patient is 73 years old although with good performance status and does not have any geriatric syndromes. He does not have any significant comorbidities other than diabetes mellitus - reasonable candidate for the recommended treatment. I discussed side effects from this approach including but not limited to allergic reactions, alopecia, pancytopenia, neutropenic fever, infection, bleeding, cardiac toxicity, renal toxicity, hepatic toxicity, pulmonary toxicity, neurotoxicity, neuropathy, GI toxicity including nausea, vomiting and diarrhea, mucositis, colitis, thrombosis and a small risk of from these complications. Patient has been tolerating current therapy with some expected but manageable toxicity. He is doing well at this time and will continue as planned. 09/29/2024: Restaging CT scans showed some shrinkage of his primary malignancy. No evidence of metastatic disease. Pulmonary nodules are small and likely benign in nature. RECOMMENDATIONS: C7 of chemotherapy tomorrow and continue every 2 weeks to complete 8 cycles Discussed proper use of imodium on as-needed basis for diarrhea Continue Eliquis 5 mg every 12 hours Treatment plan: 8 cycles of neoadjuvant chemotherapy followed by concurrent chemoradiation therapy followed by surgical resection Restaging scans will be done after 4 cycles of chemotherapy, after 8 cycles of chemotherapy and after chemoRT Return for FU in 2 weeks for provider visit - labs and C8D1 of chemotherapy (last cycle) Thank you very much for allowing to participate in this patient's care Assessment & Plan (10/05/2024 1:02 PM EST): IMPRESSION: This is a 73-year-old man with the following diagnoses: He is 3 months and 2 weeks out from the diagnosis of Pancreatic Acinar cell carcinoma - This is early stage/resectable disease. Diarrhea from chemotherapy -improved/resolved Weight loss -resolved CIPN -resolved Hypokalemia -resolved Pulmonary nodules, subcentimeter-likely benign Thrombus within the right internal jugular vein adjacent to port catheter. DISCUSSION: I discussed overall impression, natural history of the disease, stage of the disease and further management in this regard. I reviewed records from [facility]. Patient was recommended to undergo neoadjuvant chemotherapy with 8 cycles of FOLFIRINOX followed by neoadjuvant chemoradiation therapy followed by surgical resection. Patient is 73 years old although with good performance status and does not have any geriatric syndromes. He does not have any significant comorbidities other than diabetes mellitus - reasonable candidate for the recommended treatment. I discussed side effects from this approach including but not limited to allergic reactions, alopecia, pancytopenia, neutropenic fever, infection, bleeding, cardiac toxicity, renal toxicity, hepatic toxicity, pulmonary toxicity, neurotoxicity, neuropathy, GI toxicity including nausea, vomiting and diarrhea, mucositis, colitis, thrombosis and a small risk of from these complications. Patient has been tolerating current therapy with some expected but manageable toxicity. He is doing well at this time and will continue as planned. 09/29/2024: Restaging CT scans showed some shrinkage of his primary malignancy. No evidence of metastatic disease. Pulmonary nodules are small and likely benign in nature. RECOMMENDATIONS: C5 of chemotherapy tomorrow and continue every 2 weeks to complete 8 cycles Discussed proper use of imodium on as-needed basis for diarrhea Continue Eliquis 5 mg every 12 hours Treatment plan: 8 cycles of neoadjuvant chemotherapy followed by concurrent chemoradiation therapy followed by surgical resection Restaging scans will be done after 4 cycles of chemotherapy, after 8 cycles of chemotherapy and after chemoRT Return for FU in 2 weeks for provider visit - labs and C6D1 of chemotherapy Thank you very much for allowing to participate in this patient's care Assessment & Plan (09/14/2024 1:23 PM EST): IMPRESSION: This is a 73-year-old man with the following diagnoses: He is 2 months and 3 weeks out from the diagnosis of Pancreatic Acinar cell carcinoma - This is early stage/resectable disease. Diarrhea from hemotherapy Weight loss CIPN - mild - continue to monitor Burning micturition - no evidence of UTI Hypokalemia DISCUSSION: I discussed overall impression, natural history of the disease, stage of the disease and further management in this regard. I reviewed records from [facility]. Patient was recommended to undergo neoadjuvant chemotherapy with 8 cycles of FOLFIRINOX followed by neoadjuvant chemoradiation therapy followed by surgical resection. Patient is 73 years old although with good performance status and does not have any geriatric syndromes. He does not have any significant comorbidities other than diabetes mellitus - reasonable candidate for the recommended treatment. I discussed side effects from this approach including but not limited to allergic reactions, alopecia, pancytopenia, neutropenic fever, infection, bleeding, cardiac toxicity, renal toxicity, hepatic toxicity, pulmonary toxicity, neurotoxicity, neuropathy, GI toxicity including nausea, vomiting and diarrhea, mucositis, colitis, thrombosis and a small risk of from these complications. Patient has been experiencing significant toxicity from current therapy. I recommended to hold chemotherapy for 1 week. I discussed using Imodium up to 16 mg in 24 hours. Advised him to increase caloric and fluid intake. He will follow-up with his PCP for glucose issues/insulin adjustments. He will go home on oral KCl replacement. RECOMMENDATIONS: Hold C4 of chemotherapy tomorrow Chemotherapy break for 1 week Discussed adequate use of imodium Oral KCL replacement Advised increasing nutritional intake both fluids and calories - more frequent smaller meals Treatment plan: 8 cycles of neoadjuvant chemotherapy followed by concurrent chemoradiation therapy followed by surgical resection Restaging scans will be done after 4 cycles of chemotherapy, after 8 cycles of chemotherapy and after chemoRT Advised him for follow up with PCP for glucose/insulin management Return for 1 week for provider visit - labs and C4D1 of chemotherapy Thank you very much for allowing to participate in this patient's care Assessment & Plan (07/20/2024 2:07 PM EDT): IMPRESSION: This is a 73-year-old man with recent diagnosis of pancreatic head adenocarcinoma. This is early stage/resectable disease. DISCUSSION: I discussed overall impression, natural history of the disease, stage of the disease and further management in this regard. I have reviewed records from [facility]. Patient is recommended to undergo neoadjuvant chemotherapy with 8 cycles of FOLFIRINOX followed by neoadjuvant chemoradiation therapy followed by surgical resection. Patient is 73 years old although has very good performance status and does not have any geriatric syndromes. He does not have any significant comorbidities other than diabetes mellitus. He is a reasonable candidate for the recommended treatment. I discussed side effects from this approach including but not limited to allergic reactions, alopecia, pancytopenia, neutropenic fever, infection, bleeding, cardiac toxicity, renal toxicity, hepatic toxicity, pulmonary toxicity, neurotoxicity, neuropathy, GI toxicity including nausea, vomiting and diarrhea, mucositis, colitis, thrombosis and a small risk of from these complications. Patient agreed to proceed and signed informed consent today. RECOMMENDATIONS: Patient will start neoadjuvant modified FOLFIRINOX chemotherapy in the next 1 to 2 weeks Treatment plan: 8 cycles of neoadjuvant chemotherapy followed by concurrent chemoradiation therapy followed by surgical resection Restaging scans will be done after 4 cycles of chemotherapy and then after 8 cycles of chemotherapy Labs were done recently in [id number] unremarkable DPYD gene sequencing Schedule PORT placement He will undergo chemo teaching Return for follow-up on C1D1 of chemotherapy Thank you very much for allowing to participate in this patient's care Type 2 diabetes mellitus wit h diabetic polyneuropathy, with long-term current use of insulin 06/15/2024 Assessment & Plan (05/17/2025 3:01 PM EDT): Uncontrolled. Hemoglobin A1c is 8.2% and this is likely falsely low due to anemia. Based on his CGM he is having postprandial hyperglycemia at lunch but his glucose tends to go low after dinner. He is also spiking around 2:00 in the morning but he is not eating at that time which is odd. I asked him to increase the Lantus to 16 units he is currently at 14. He should continue the same Fiasp correction scale but if he continues to have lows at dinnertime then we may have to either stop the Fiasp at dinnertime or maybe start at a scale of 70-100 = 1 unit and increasing by 1 unit every 50 mg/dL. I also added Jardiance 10 mg. This should not cause hypoglycemia but it should improve glycemic control. Again the only concern for hypoglycemia is in the evening at dinnertime for what ever reason. He is active after lunch which may contribute to lower glucose levels but he states he is not overly active. He should repeat hemoglobin A1c in 3 months. Assessment & Plan (02/02/2025 12:35 PM EDT): Improved glycemic control and his A1c was down to 8.1% in the last 2 weeks his in range Target is at 68% which is actually not bad and needs to be at 70%. 2% of the glucose for between 54 and 69 and 30% above 181 mg/dL. So he is going to use Lantus 28 units daily. I asked him to go back to using his correction scale which starts at 70-100 at 8 units and increase this by 2 units every 50 mg/dL. However he is only been administering when the glucose are above 200 so I told him to start administering insulin at 101 which should give him 10 units at that point. Of course he should only administer prandial insulin if he eats if he does not eat then he should not administer the insulin. Assessment & Plan (2024 2:49 PM EST): Uncontrolled. His GMI is around 9.1%. The FOLFIRINOX is probably causing insulin resistant and he also received dexamethasone. He states that he is going to finish chemotherapy by November 17. Then he will do radiation therapy afterwards. I have to increase his Humalog correction scale and I have increased it by 4 units. The new correction scale starts at 70-100 = 8 units and increase it by 2 units every 50 mg/dL. He had 2 days of hypoglycemia overnight and his glucose does drop overnight. Some decreasing the Lantus to 35 units. I also gave him a correction scale for snacks starting at 70-100 = 2 units and increase by 2 units every 50 mg. I informed him that if he starts having hypoglycemia that he should contact me. I may need to adjust her Humalog again after he stops the chemotherapy. Assessment & Plan (07/29/2024 9:39 AM EDT): Uncontrolled but improving his GMI is now 7.9 previously hemoglobin A1c was 10.6%. Will double the Lantus dose. He does dip or have hypoglycemia after lunch because of exercise. I explained to rule 15 and he has already been correcting and I just gave him an explanation of the role 15 so he can follow this. He should return for follow-up in 6 weeks to 3 months. Assessment & Plan (06/15/2024 5:08 PM EDT): Uncontrolled. Hemoglobin A1c is 10.3. I will stop glipizide. Increase Lantus to 20 units. I gave him a correction scale for Humalog starting at 70-100 = 4 units increasing by 2 units every 50 mg/dL. He must administer Humalog before the meal based on glucose levels checked before eating. He must not administer Humalog after eating this will result in hypoglycemia. I have given the patient a follow-up appointment in 6 weeks time. I instructed him to contact me through the patient portal if he has any questions. I requested lab work prior to the follow-up visit Type 2 diabetes mellitus without complications 0 05/28/2024 Assessment & Plan (03/17/2025 2:03 PM EDT): Mr. Gaurav Arreola is a 74 y.o. male with pmhx of HLD, IDDM, mood disorder, and pancreatic cancer (acinar cell carcinoma) s/p FOLFIRINOX 8x cycles now s/p Whipple (03/10, ). ?First diagnosed with type 2 diabetes in 2020 in the setting of routine screening. Initially treated with oral medications, believes metformin. Later started on insulin. Most recent home regimen includes basal/bolus MDI insulin in the form of 28 units of Lantus nightly and Lispro 4-12 unit sliding scale with meals. He uses a [employer] Miguel 3 for glucose monitoring. Followed by Dr. Prakash Zambrano at [facility] Endocr[facility]ology. Last seen 02/02/25.A1c 8.1% 12/14/2024. Pt's blood sugars in target range in the past 24 hours without hypoglycemia. Plan is for him to be discharged home later today. Recommend that he continue Lantus 16 units at home and add prandial insulin when PO intake is more established and blood sugars are consistently > 200 mg/dl. He follows at [facility] endocrinology and recommend he has close f/u. Recommendations: Lantus 16 units nightly, 14 units if NPO Lispro 0-6 unit sliding scale TID AC Check glucose AC, HS, and if any signs or symptoms of hypoglycemia Discharge Recommendations Lantus 16 units nightly Start Humalog 2 units with meals when eating at least 50% of meals or if blood sugars are consistently trending > 200 mg/dl Monitor blood sugars before meals and bedtime Follow-up closely with regional training manager Assessment & Plan (03/11/2025 1:53 PM EDT): Mr. Gaurav Arreola is a 74 y.o. male with pmhx of HLD, IDDM, mood disorder, and pancreatic cancer (acinar cell carcinoma) s/p FOLFIRINOX 8x cycles now s/p Courtney (03/10, [place]). ?First diagnosed with type 2 diabetes in 2020 in the setting of routine screening. Initially treated with oral medications, believes metformin. Later started on insulin. Most recent home regimen includes basal/bolus MDI insulin in the form of 28 units of Lantus nightly and Lispro 4-12 unit sliding scale with meals. He uses a [employer] Miguel 3 for glucose monitoring. Followed by Dr. Prakash Zambrano at [facility] Endocrinology. Last seen 02/02/25.A1c 8.1% 12/14/2024. Received 8 mg dexamethasone in OR yesterday which may have hyperglycemic causing effect for ~48 hours. Thus far glucose trending only mildly above hospital target at times with sliding scale regular insulin only. Currently NPO. Would recommend adding lantus nightly. Can continue regular insulin q6h for sliding scale. When diet advanced, would consider switching sliding scale from regular insulin to lispro. Diabetes team will continue to follow. Recommendations: -Lantus 14 units nightly, same dose if NPO -Regular insulin 0-12 unit sliding scale q6h -Anticipate may need to de-intensify tomorrow when dexamethasone likely to start wearing off -Check glucose AC, HS, and if any signs or symptoms of hypoglycemia Assessment & Plan (05/28/2024 2:50 AM EDT): Notes poor control of blood sugars recently. Presumably due to pancreatic issue seen on CT scan although infectious cause for hyperglycemia is possible as well. Will give basal bolus insulin therapy. Of note, he was previously prescribed Rybelsus, but this was never approved by his insurance and he never took it. Depression 05/28/2024 Hyperlipidemia 05/28/2024 Transaminitis 05/28/2024 Assessment & Plan (05/28/2024 3:03 AM EDT): Elevated LFTs including alkaline phosphatase, but surprisingly normal biliary tree on CT scan and normal bilirubin. CT is concerning for a pancreatic head mass, but unclear if this is incidental to the elevated transaminase levels. Will consult gastroenterology and check labs for cause of hepatitis. He is a lifelong nondrinker, no high risk sexual encounters, no IV drug use. He describes dark yellow urine. I question whether this was due to bilirubinuria or dehydration related to hyperglycemia. Resolved Problems Problem Noted Date Diagnosed Date Resolved Date Pancreatic cancer 03/10/2025 06/17/2025 Weight loss 09/14/2024 04/30/2025 Acute deep vein thrombosis ( DVT) of non-extremity vein 09/14/2024 06/17/2025 Hypokalemia 09/14/2024 04/30/2025 Pancreatic lesion 05/28/2024 04/30/2025 Assessment & Plan (05/28/2024 3:04 AM EDT): Imaging concerning for possible malignancy. He describes a hollow feeling in his abdomen. I question whether this is his interpretation of abdominal pain and whether this lesion could be a pseudocyst or abscess associated with prior pancreatitis. He may require biopsy, but I think a good first step would be an MRCP and evaluation by gastroenterology. He was informed that he may require endoscopic ultrasound with biopsy or CT-guided biopsy. Encounters Date Type Department Care Team Description 08/14/2025 Refill [facility] [address] [place] [address] Prakash Zambrano, DO Medication Refill 08/12/2025 Refill [facility] [address] [place] [address] Prakash Zambrano, DO Medication Refill 07/20/2025 Refill [facility] [address] [place] [address] Jami Chan MA 07/08/2025 Telephone [facility] at [address] [address] Jill Estrada MBBS bad breath/foul stool () 07/08/2025 Orders Only [facility] at [address] [address] Maritza Vazquez NP 07/08/2025 Telephone [facility] at [address] [address] Eli Silveira RN 06/17/2025 9:00 AM EDT Office Visit [facility] at [address] [address] Jill Estrada MBBS Anemia in other chronic diseases classified elsewhere (Primary Dx); Malignant neoplasm of head of pancreas; History of DVT (deep vein thrombosis) 06/10/2025 2:08 PM EDT - 06/10/2025 11:59 PM EDT Hospital Encounter [facility], [address] [address] Jill Estrada MBBS Discharge Disposition: Home or Self Care 06/07/2025 10:15 AM EDT - 06/07/2025 11:59 PM EDT Hospital Encounter [address] [address] Jill Etsrada MBBS Discharge Disposition: Home or Self Care 04/29/2025 Procedure Pass [address] [address] 04/29/2025 Procedure Pass [address] [address] from Last 3 Months Immunizations Immunization Administration Dates Next Due COVID-19 (Pre-07/22) Pfizer Vaccine, mRNA, PF 03/07/2022 INFLUENZA, SPLIT VIRUS, TRIVALENT PF 07/22/2016, 06/29/2015 Influenza High-Dose Quadriva lent Preservative Free IM 07/24/2023,07/03/2022 Influenza High-Dose Trivalen t Preservative Free IM 07/10/2024,07/14/2018 Influenza Quadrivalent Adjuv anted Preservative Free IM 07/14/2021 Influenza Quadrivalent w/ Pr eservative IM 06/23/2020,07/28/2019,06/30/2019,07/14 Influenza Trivalent Adjuvant ed Preservative free IM 07/24/2017 Pneumococcal conjugate PCV13 09/05/2016 Pneumococcal polysaccharide PPSV23 10/08/2017 RSV Vaccine (monovalent, adjuvanted) 08/09/2023 Tdap 06/23/2020 Family History Medical History Relation Comments Prostate cancer Father Stroke Father No Known Problems Mother Relation Status Comments Father Mother Social History Tobacco Use Types Packs/Day Years [...] Orientation Straight 07/08/2024 12 :43 PM EDT Last Filed Vital Signs Vital Sign Reading Time Taken Comments Blood Pressure 108/71 06/17/2025 9:12 AM EDT Pulse 79 06/17/2025 9:12 AM EDT Temperature 36.5 C (97.7 F) 06/17/2025 9:12 AM EDT Respiratory Rate 14 04/05/2025 12:00 PM EDT Oxygen Saturation 97% 06/17/2025 9:12 AM EDT Inhaled Oxygen Concentration - - Weight 74.7 kg (164 lb 9.6 oz) 06/17/2025 9:12 A M EDT Height 175.9 cm (5' 9.25 ) 06/17/2025 9:12 AM ED T Body Mass Index 24.13 06/17/2025 9:12 AM EDT Plan of Treatment Upcoming Encounters Date Type Department Care Team (Late st Contact Info) Description 06/17/2025 Procedure Pass [facility] Ct Scan [address] [address] 06/17/2025 Procedure Pass [address] [address] 09/08/2025 3:15 PM EST Appointment [address] [address] Jill Estrada MBBS [address] [place] [phone] [email or web address] 09/09/2025 1:40 PM EST Office Visit [facility] [address] [place] [id number] Prakash Zambrano DO [address] [place] [phone] 09/15/2025 2:00 PM EST Office Visit [facility] at [address] [address] Jill Estrada MBBS [address] [place] [phone] [email or web address] 09/24/2025 7:00 PM EST Appointment [facility], [facility] Density - [address] [address] Stefan Cutler DO [address] [facility] [place] [address] [email or web address] Health Maintenance Due Date Last Done Comments DEPRESSION SCREENING 1961 ZOSTER VACCINES (1 of 2) 1968 COLOGUARD 1994 FIT TEST 1994 FOBT 1994 SIGMOIDOSCOPY 1994 VIRTUAL COLONOSCOPY 1994 DIABETIC EYE EXAM 05/28/2024 INFLUENZA VACCINE (#1) 2025 , 07/24/2023, 07/03/2022, Additional history exists COVID-19 VACCINE ( season) 2025 07/10/2024, 07/24/2023, 07/03/2022, Additional history exists HEMOGLOBIN A1C 07/28/2025 04/27/2025, 11/28, 09/22/2024, Additional history exists URINE MICROALBUMIN/CREATININE RATIO 09/22/2025 09/22/2024 BLOOD PRESSURE 12/15/2025 06/17/2025 COLONOSCOPY 02/09/2028 02/08/2023, 12/30, 09/10/2017 COLORECTAL CANCER SCREENING 02/09/2028 Adult Td,Tdap Booster 06/23/2030 06/23/2020 PNEUMOCOCCAL VACCINES (50+ years) Completed 10/08/2017, 09/05/2016 RSV VACCINE Completed 08/09/2023 HEPATITIS C SCREENING Completed 05/28/2024, 024 SMOKING STATUS SCREENING (Once After 26 Yrs) Completed 05/17/2025 HEPATITIS A VACCINES Aged Out No long er eligible based on patient's age to complete this topic HIB VACCINES Aged Out No longer eligi ble based on patient's age to complete this topic MENINGOCOCCAL VACCINES (ACWY) Aged Out No longer eligible based on patient's age to complete this topic MENINGOCOCCAL VACCINES (B) Aged Out N o longer eligible based on patient's age to complete this topic Medical Devices Implanted Type Area Director Software Quality Assurance Device Identifier Shelf Expiration Date Model / Serial / Lot Port Dignity 6.6fr Infusion Mid Size Attachable Silicone Filled Suture Hole - [id number] Implanted:Qty: 1 on 07/28/2024 by Rose Mary Arora PA-C at [facility] Right: Chest MEDCOMP [id number] 12/28/2028 [id number] / / [id number] Procedures Procedure Name Priority Date/Time Associated Diagnosis Comments CT ABDOMEN/PELVIS (PANCREAS) WITH CONTRAST Routine 06/10/2025 3:10 PM EDT Malignant neoplasm of head of pancreas CT CHEST WITH CONTRAST Routine 3:10 PM EDT Malignant neoplasm of head of pancreas CBC AND DIFFERENTIAL Routine 06/07/2025 10:29 AM EDT Malignant neoplasm of head of pancreas CARCINOEMBRYONIC ANTIGEN (CEA) Routine 06/07/2025 10:29 AM EDT Malignant neoplasm of head of pancreas CA-19-9 Routine 06/07/2025 10:29 AM EDT Malignant neoplasm of head of pancreas COMPREHENSIVE METABOLIC PANEL (CMP) Routine 06/07/2025 10:29 AM EDT Malignant neoplasm of head of pancreas FERRITIN Routine 06/07/2025 10:29 AM EDT Malignant neoplasm of head of pancreas FOLATE Routine 06/07/2025 10:29 AM EDT Malignant neoplasm of head of pancreas VITAMIN B12 Routine 06/07/2025 10:29 AM EDT Malignant neoplasm of head of pancreas IRON AND IRON BINDING CAPACITY Routine 06/07/2025 10:29 AM EDT Malignant neoplasm of head of pancreas MAGNESIUM Routine 06/07/2025 10:29 AM EDT Malignant neoplasm of head of pancreas HEMOGLOBIN A1C Routine 04/27/2025 11:40 AM EDT Type 2 diabetes mellitus without complication, with long-term current use of insulin MICROALBUMIN/CREATININE RATIO, RANDOM URINE Routine 09/22/2024 10:05 AM EST Type 2 diabetes mellitus with diabetic polyneuropathy, with long-term current use of insulin HEPATITIS B SURFACE ANTIGEN Routine 05/28/2024 4:15 AM EDT ENDOSCOPY, COLON 02/08/2023 12:2 6 PM EDT from Last 3 Months or Most Recently Relevant to Health Maintenance Results * CT CHEST WITH CONTRAST (06/10/2025 3:10 PM EDT) Anatomical Region Laterality Modality Chest Computed Tomogra phy 06/11/2025 11:1 4 AM EDT Impressions 06/11/2025 11:39 AM EDT Since December 04, 2023: * No new or enlarging thoracic metastases. No new or enlarging pulmonary nodules. * Resolved right middle and lower lobe opacities. Narrative 06/11/2025 11:[address] CHEST WITH CONTRAST Referring clinician's provided indication for this examination in Epic: * Pancreatic adenocarcinoma, monitor TECHNIQUE: Multidetector CT of the chest was performed with intravenous contrast using tailored dose modulation techniques. COMPARISON: CT CHEST WITH CONTRAST FINDINGS: Devices/tubes/lines: Interval removal of the port. Lungs/airways: The central airways are patent. Resolved right hemidiaphragm elevation and patchy opacities at the right middle and lower lobes. No new or enlarging pulmonary nodules. Scattered calcified and noncalcified pulmonary nodules are not significantly changed, for example a 6 mm right lower lobe partially calcified, lobulated nodule (5:192) and a 5 mm juxtapleural left lower lobe nodule (5:370). Pleura: No pleural effusions or pneumothoraces. Stable noncalcified pleural thickening, for example along the right anterior upper lobe (5:163 and left anterior upper lobe (5:150). Mediastinum: Unremarkable thyroid. Heart size is within normal limits. No pericardial effusion. Lymph nodes: No supraclavicular, axillary, mediastinal, or hilar lymphadenopathy. Upper abdomen: Reported separately. Chest wall: No chest wall masses. Bones: No suspicious osseous lesions. Old left 9-10 rib fractures. Unchanged patchy sclerosis at the right seventh rib. Procedure Note Ny Carr MD - 06/11/2025 CT CHEST WITH CONTRAST Referring clinician's provided indication for this examination in [facility]: *Pancreatic adenocarcinoma, monitor TECHNIQUE: Multidetector CT of the chest was performed with intravenouscontrast using tailored dose modulation techniques. COMPARISON: CT CHEST WITH CONTRAST FINDINGS: Devices/tubes/lines: Interval removal of the port. Lungs/airways: The central airways are patent. Resolved righthemidiaphragm elevation and patchy opacities at the right middle and lowerlobes. No new or enlarging pulmonary nodules. Scattered calcified andnoncalcified pulmonary nodules are not significantly changed, for examplea 6 mm right lower lobe partially calcified, lobulated nodule (5:192) geena 5 mm juxtapleural left lower lobe nodule (5:370). Pleura: No pleural effusions or pneumothoraces. Stable noncalcifiedpleural thickening, for example along the right anterior upper lobe (5:163and left anterior upper lobe (5:150). Mediastinum: Unremarkable thyroid. Heart size is within normal limits. Nopericardial effusion. Lymph nodes: No supraclavicular, axillary, mediastinal, or hilarlymphadenopathy. Upper abdomen: Reported separately. Chest wall: No chest wall masses. Bones: No suspicious osseous lesions. Old left 9-10 rib fractures.Unchanged patchy sclerosis at the right seventh rib. IMPRESSION: Since December 04, 2023: * No new or enlarging thoracic metastases. No new or enlarging pulmonarynodules. * Resolved right middle and lower lobe opacities. Jill GONZALEZ IMG CT CHEST Final Resu lt * CT ABDOMEN/PELVIS (PANCREAS) WITH CONTRAST (06/10/2025 3:10 PM EDT) Anatomical Region Laterality Modality Abdomen, Pelvis Computed Tomogra phy 06/11/2025 11:2 6 AM EDT Impressions 06/11/2025 11:38 AM EDT Since March 04, 2025: Interval Whipple without evidence of local recurrence or abdominopelvic metastases. Narrative 06/11/2025 11:[address] ABDOMEN/PELVIS (PANCREAS) WITH CONTRAST Referring clinician's provided indication for this examination in [facility]: * Pancreatic adenocarcinoma, monitor TECHNIQUE: Multidetector-row CT of the abdomen and pelvis was performed after administration of intravenous contrast using tailored dose modulation techniques. Images were reconstructed in the axial, coronal, and sagittal planes. COMPARISON: CT ABDOMEN WITH CONTRAST FINDINGS: Lower chest: Reported separately. Liver: No suspicious focal lesions. Biliary: No biliary ductal dilation. Cholecystectomy. Choledocho-jejunostomy Spleen: No splenomegaly. No focal lesions. Pancreas: Interval Whipple. No suspicious enhancement at the resection bed. No masses or ductal dilation within the remnant pancreas. Adrenal glands: No nodules. Kidneys/ureters: No solid masses or hydronephrosis. No stones. Bowel: Gastrojejunostomy. No obstruction. No bowel wall thickening. Peritoneum/retroperitoneum: No masses, free air, or fluid. Lymph nodes: No lymphadenopathy. Pelvic organs/bladder: No masses. Vessels: No abdominal aortic aneurysm. Bones/soft tissues: No destructive osseous lesions. Procedure Note Ny Carr MD - 06/11/2025 CT ABDOMEN/PELVIS (PANCREAS) WITH CONTRAST Referring clinician's provided indication for this examination in Epic: *Pancreatic adenocarcinoma, monitor TECHNIQUE: Multidetector-row CT of the abdomen and pelvis was performedafter administration of intravenous contrast using tailored dosemodulation techniques. Images were reconstructed in the axial, coronal,and sagittal planes. COMPARISON: CT ABDOMEN WITH CONTRAST FINDINGS: Lower chest: Reported separately. Liver: No suspicious focal lesions. Biliary: No biliary ductal dilation. Cholecystectomy.Choledocho-jejunostomy Spleen: No splenomegaly. No focal lesions. Pancreas: Interval Whipple. No suspicious enhancement at the resectionbed. No masses or ductal dilation within the remnant pancreas. Adrenal glands: No nodules. Kidneys/ureters: No solid masses or hydronephrosis. No stones. Bowel: Gastrojejunostomy. No obstruction. No bowel wall thickening. Peritoneum/retroperitoneum: No masses, free air, or fluid. Lymph nodes: No lymphadenopathy. Pelvic organs/bladder: No masses. Vessels: No abdominal aortic aneurysm. Bones/soft tissues: No destructive osseous lesions. IMPRESSION: Since March 04, 2025: Interval Whipple without evidence of local recurrenceor abdominopelvic metastases. Jill GONZALEZ IMG CT ABD/PELVIS Final Re sult * (ABNORMAL) Comprehensive metabolic panel (06/07/2025 10:29 AM EDT) SODIUM 140 133 - 146 mmol/L [facility] POTASSIUM 4.0 3.3 - 5.1 mmol/L [facility] CHLORIDE 105 96 - 108 mmol/L [facility] CO2 23 21 - 35 mmol/L [facility] BUN 22(H) 6 - 19 mg/dL [facility] CREATININE 1.10 0.5 - 1.5 mg/dL [facility] GLUCOSE 128(H) 70 - 99 mg/dL [facility] ALBUMIN 4.6 3.9 - 4.8 g/dL [facility] TOTAL PROTEIN 7.3 6.5 - 8.0 g/dL [facility] CALCIUM 9.7 8.4 - 10.3 mg/dL [facility] ALKALINE PHOSPHATASE 141(H) 39 - 117 U/L [facility] TOTAL BILIRUBIN 0.5 0.0 - 1.2 mg/dL [facility] AST 37 0 - 37 U/L [facility] ALT 35 0 - 40 U/L [facility] GLOBULIN 2.7 1 - 4.8 g/dL [facility] EGFR 70 >59 mL/min/1.7 3m2 [facility] Comment:Estimated glomerular filtration rate calculated using the CKD-EPI refit equation. ANION GAP 16 10 - 20 mmol/L [facility] Blood 06/07/2025 10:2 9 AM EDT 06/07/2025 11:04 AM EDT Jill GONZALEZ LAB BLOOD BKR ORDERABLES F inal Result [address] [address] * Iron and iron binding capacity (06/07/2025 10:29 AM EDT) [facility] IRON 75 45 - 160 ug/dL [facility] IRON BINDING CAPACITY 317 228 - 428 ug/dL [facility] TRANSFERRIN SATURAT. 24 20 - 55 % [facility] Blood 06/07/2025 10:2 9 AM EDT 06/07/2025 11:04 AM EDT [facility] BLOOD BKR ORDERABLES F inal Result [address] [address] * CA-19-9 (06/07/2025 10:29 AM EDT) [facility] CA 19-9 24 <35 U/mL [facility] Comment: Test Methodology Enriqueta [id number] Patient results determined by assays using different manufacturers or methods may not be comparable. Blood 06/07/2025 10:2 9 AM EDT 06/07/2025 11:04 AM EDT us mad D Estrada MBBS LAB BLOOD BKR ORDERABLES F inal Result [address] [address] * (ABNORMAL) CBC and differential (06/07/2025 10:29 AM EDT) [facility] WBC 6.54 4.00 - 11.00 K/uL [facility] RBC 4.48(L) 4.50 - 5.90 M/uL [facility] HGB 13.4(L) 13.5 - 17.5 g/dL [facility] HCT 43.2 41.0 - 53.0 % [facility] PLT 245 150 - 450 K/uL [facility] MCV 96.4 80.0 - 100.0 fL [facility] MCH 29.9 27.0 - 31.0 pg [facility] MCHC 31.0(L) 32.0 - 36.0 g/dL [facility] RDW 14.1 11.5 - 14.5 % [facility] MPV 10.1 8.4 - 12.0 fL [facility] NRBC 0.00 0.00 /100 WBCs [facility] ABSOLUTE NRBC 0.00 0.00 K/uL [facility] DIFF METHOD Auto [facility] NEUTS 74.4 48.0 - 76.0 % [facility] LYMPHS 14.1(L) 18.0 - 41.0 % [facility] MONOS 8.3 4.0 - 11.0 % [facility] EOS 1.8 0.0 - 5.0 % [facility] BASOS 1.1 0.0 - 1.5 % [facility] Granulocytes, immature (%) 0.3 0.0 - 0.9 % [facility] ABSOLUTE NEUTS 4.87 1.92 - 7.60 K/uL [facility] ABSOLUTE LYMPHS 0.92 0.72 - 4.10 K/uL [facility] ABSOLUTE MONOS 0.54 0.16 - 1.10 K/uL [facility] ABSOLUTE EOS 0.12 0.00 - 0.50 K/uL [facility] ABSOLUTE BASOS 0.07 0.00 - 0.15 K/uL [facility] Granulocytes, immature 0.02 0.00 - 0.09 K/uL [facility] Blood 06/07/2025 10:2 9 AM EDT 06/07/2025 11:04 AM EDT us Jill Estrada MBBS LAB BLOOD BKR ORDERABLES F inal Result [address] [address] * Magnesium (06/07/2025 10:29 AM EDT) MAGNESIUM 2.2 1.6 - 2.6 mg/dL [facility] Blood 06/07/2025 10:2 9 AM EDT 06/07/2025 11:04 AM EDT us Jill Romeroqui MBBS LAB BLOOD BKR ORDERABLES F inal Result Performing Organization Address City/[facility]/ZIP Co de Phone Number [address] [address] * (ABNORMAL) Folate (06/07/2025 10:29 AM EDT) FOLIC ACID >20.0(H) 4.2 - 19.9 ng/mL [facility] Blood 06/07/2025 10:2 9 AM EDT 06/07/2025 11:04 AM EDT us Dulce Mariad Leesa RomeroEstrada MBBS LAB BLOOD BKR ORDERABLES F inal Result Performing Organization Address [facility]/ZIP Co de Phone Number [address] [address] * Ferritin (06/07/2025 10:29 AM EDT) FERRITIN 267 30 - 400 ug/L [facility] Blood 06/07/2025 10:2 9 AM EDT 06/07/2025 11:04 AM EDT us Jill Romeroqui MBBS LAB BLOOD BKR ORDERABLES F inal Result Performing Organization Address [facility] Co de Phone Number [address] [address] * Vitamin B12 (06/07/2025 10:29 AM EDT) VITAMIN B12 694 232 - 1,245 pg/mL [facility] Blood 06/07/2025 10:2 9 AM EDT 06/07/2025 11:04 AM EDT us Jill Medranoi [facility] LAB BLOOD BKR ORDERABLES F inal Result Performing Organization Address City/[facility]/ZIP Co de Phone Number [address] [address] * Carcinoembryonic antigen (CEA) (06/07/2025 10:29 AM EDT) CEA 2.8 0 - 3.4 ng/mL [facility] Comment: Test Methodology Enriqueta e801 Patient results determined by assays using different manufacturers or methods may not be comparable. Blood 06/07/2025 10:2 9 AM EDT 06/07/2025 11:04 AM EDT Jill Landers Estrada [facility] LAB BLOOD BKR ORDERABLES F inal Result Performing Organization Address [facility] de Phone Number [address] [address] * (ABNORMAL) Hemoglobin A1c (04/27/2025 11:40 AM EDT) HEMOGLOBIN A1C 8.2(H) 4.3 - 5.8 % [facility] Blood 04/27/2025 11:4 0 AM EDT 04/27/2025 11:45 AM EDT Sheree ALEJO LAB BLOOD BKR ORDERABLES Fi nal Result Performing Organization Address [facility] Co de Phone Number [address] [address] * Microalbumin/creatinine ratio, random urine (09/22/2024 10:05 AM EST) URINE MICROALBUMIN <1.2 0 - 2.3 mg/dL [facility] URINE CREATININE 68 mg/dL [facility] MICROALB/CRE RATIO NOT CALCULATED 0 - 20 mg/g Cre [facility] Comment:due to Microalbumin <1.2 Urine (Urine) 09/22/2024 10: 05 AM EST 09/22/2024 11:09 AM EST us Prakash Zambrano DO LAB URINE ORDERABLES Final Resul t [address] [address] * Hepatitis B surface antigen (05/28/2024 4:15 AM EDT) HBV SURFACE ANTIGEN NON-REACTI VE NON-REACTI VE [facility] Blood 05/28/2024 4:15 AM EDT 05/28/2024 4:18 AM EDT us Kevin Dunham DO LAB BLOOD BKR ORDERABLES Karen l Result Performing Organization Address [facility]/ZIP Co de Phone Number [address] [address] * ENDOSCOPY, COLON (02/08/2023 12:26 PM EDT) Narrative Transcriptions Darin Astudillo MD - 02/08/2023 12:26 PM EDT [facility] Patient Name: Gaurav Arreola Attending MD:: DARIN ASTUDILLO MD, Procedure Date: 02/08/2023 12:26 PM Date of : 1950 Age: 72 Admit Type: Outpatient Gender: Male Room: [facility] 05 Referring MD: STEFAN CUTLER DO Exam Type: Colonoscopy Indications: High risk colon cancer surveillance: Personalhistory of colonic polyps, Last colonoscopy: 2017 Medications: Monitored Anesthesia Care Procedure: Informed consent was obtained from the patientafter discussion of the indications, limitations, alternatives, benefits, and risks of the procedure. Risks specifically discussed include but are not limited to medication reactions, missed lesions, bleeding, perforation, or the need for emergent surgery. Throughout the procedure, the patient's blood pressure, pulse, end-tidal CO2, and oxygensaturations were monitored continuously. The Olympus adult variable colonoscope [id number] #3 was introduced through the anus and advanced to the terminal ileum. The colonoscopy was performedwithout difficulty. The patient tolerated the procedurewell. The quality of the bowel preparation was good. Anatomical landmarks were photographed. Complications: No immediate complications. Estimated blood loss:None. Findings: The perianal and digital rectal examinations were normal. Two sessile polyps were found in the transversecolon and ascending colon. The polyps were 4 mm in size. These polyps were removed with a cold snare.Resection and retrieval were complete. The rectum, recto-sigmoid colon, sigmoid colon, descending colon, splenic flexure, hepatic flexure, cecum, appendiceal orifice, ileocecal valve, ileum, rectum (on retroflexion) and ascending colon (on retroflexion) appeared normal. Impression: - Two 4 mm polyps in the transverse colon and inthe ascending colon, removed with a cold snare.Resected and retrieved. - The rectum (on retroflexion), ascending colon (on retroflexion), rectum, sigmoid colon, descending colon, splenic flexure, hepatic flexure, cecum, recto-sigmoid colon, ileocecal valve, appendiceal orifice and terminal ileum are normal. Recommendation: - Discharge patient to home. - Resume previous diet. - Continue present medications. - Await pathology results. - Repeat colonoscopy in 5 years for surveillance. - I will send you pathology results by letter. Ifyou do not get results in 3 weeks telephone [place]. DARIN ASTUDILLO MD 02/08/2023 1:00:21 PM This report has been signed electronically. Number of Addenda: 0 Note Initiated On: 02/08/2023 12:26 PM Procedure Code(s): --- Professional --- 15879, Colonoscopy, flexible; with removal of tumor(s), polyp(s), or other lesion(s) by snare technique --- Technical --- 20024, Colonoscopy, flexible; with removal of tumor(s), polyp(s), or other lesion(s) by snare technique Diagnosis Code(s): --- Professional --- Z86.010, Personal history of colonic polyps D12.3, Benign neoplasm of transverse colon (hepatic flexure or splenic flexure) D12.2, Benign neoplasm of ascending colon --- Technical --- Z86.010, Personal history of colonic polyps D12.3, Benign neoplasm of transverse colon (hepatic flexure or splenic flexure) D12.2, Benign neoplasm of ascending colon CPT copyright 2021 [employer]. All rights reserved. The codes documented in this report are preliminary and upon rn acls reviewmay be revised to meet current compliance requirements. Procedure Date: 02/08/2023 12:26:24 PM [address] [place] [address] us Stefan A Bigda DO GI PROCEDURE ORDERABLES Final Re sult from Last 3 Months or Most Recently Relevant to Health Maintenance Insurance [employer] MEDICARE PART A & B [employer] RE[employer] MEDICARE PART A & B [employer] RE[employer] MEDICARE PART A & B [employer] [place] [place] PART A [place] [id number] [employer] RE[employer]AC[employer] MEDICARE PART A & B [employer] MEDICARE PART A & B Advance Directives For more information, please contact: [phone] (9AM - 5PM [place], Saturday-Saturday) * Full Code (Latest Code Status on File) Date Activated Date Inactivated Comments 03/10/2025 5:09 PM Question Answer Comments Code Status Confirmed With: Patient * Full Code Date Activated Date Inactivated Comments 05/28/2024 3:06 AM 03/10/2025 5:09 PM Question Answer Comments Code Status Confirmed With: Patient Care Teams Long Wall Shear Operator Relationship Specialty Start Date End Date Stefan Cutler DO [address] [place] [address] [email or web address] PCP - General Internal Medicine 10/14/24 Jill Estrada MBBS [email or web address] Medical [email or web address] 07/09/24 Shireen Galicia CNP [address] [place] [phone] Nurse Practitioner 10/08/24 Maritza Vazquez NP [address] [place] [address] [email or web address] Nurse Practitioner 10/13/24 Additional Source Comments The information contained in this document represents components of the legal health record. It is not the complete legal health record.[facility]
--- OUTSIDE RECORDS SUMMARY | 2025-08-23 15:34 | XMS_ITS | Encounter Summary ---
Author Organization [facility] Address [address] [facility] [address] [place] [address] Phone Care Team Providers Care Outsole Paraffiner Name Role Phone Sebastián Guillen DO Primary Care Provider [phone] Jill Estrada MBBS Unavailable [phone] Pcp, Unknown Primary Care Provider Unavailabl Shireen France DIE TRIPPER Unavailable Maritza Vazquez ULTRASOUND TECHNOL Unavailable [phone] Bigjesus manuel, Sebastián Malave DO Primary Care Provider [phone] Bigda, Sebastián Malave DO Primary Care Provider [phone] Reason for Referral * MRI/CAT Scan - Closed Specialty Diagnoses / Procedures Referred By Contac t Referred To Contact Radiology Diagnoses Abdominal pain, unspecified abdominal location Procedures CT Abdomen/Pelvis Darin Bradford MD Phone: tel: fax: [email or web address] Referral ID Status Reason Start Date Expiration Date Visits Re quested Visits Authorized [id number] Closed 11/11/2017 11/11/2018 1 1 Encounter Details Date Type Department Care Team (Late st Contact Info) Description 11/11/2017 Ancillary Orders [facility] Department [address] [place] [address] Darin Bradford MD [address] [place] [address] [email or web address] Abdominal pain, unspecified abdominal location Social History Tobacco Use Types Packs/Day Years [...] (Late st Contact Info) Description 06/17/[address] [address] 06/17/[address] [address] 09/08/2025 3:15 PM EST Appointment [address] [address] Jill Estrada MBBS [address] [place] [phone] [email or web address] 09/09/2025 1:40 PM EST Office Visit [facility] [address] [place] [address] Prakash Zambrano DO [address] [place] [address] 09/15/2025 2:00 PM EST Office Visit [facility] at [address] [address] Jill Estrada MBBS [address] [place] [address] [email or web address] 09/24/2025 7:00 PM EST Appointment [facility], Bone Density - [facility] [address] [place] [address] Sebastián Guillen, [address] [facility] [place] [address] [place] [address] [email or web address] documented as of this encounter Results * CT ABDOMEN/PELVIS WITH CONTRAST (11/20/2017 12:30 PM EST) Anatomical Region Laterality Modality Abdomen, Pelvis Computed Tomogra phy 11/20/2017 12:2 8 PM EST Impressions 11/20/2017 12:42 PM EST Moderate amount of stool evident in the colon with redundancy of the colon consistent with obstipation. The exam is otherwise unremarkable. TOTAL CTDIvol: 7.60 mGy S/S: Abdominal pain, epigastric pain, generalized abdominal discomfort and bloating, increased gas, change in bowel habits POS - [id number] Narrative 11/20/2017 12:42 PM EST COMPARISON: Upper GI series September 2017 TECHNIQUE: After the administration of oral and intravenous contrast, multidetector CT is obtained from dome of the liver through the inferior pubic rami. Multiplanar reformatted images generated. Automated exposure control utilized. FINDINGS: The lung bases are clear. No significant pleural fluid is seen. The liver is relatively homogeneous. No focal findings concern are seen. No bile duct dilatation is noted. The spleen is unremarkable. The pancreas appears normal. No adrenal masses are evident. The kidneys are unremarkable. No nephrolithiasis or hydronephrosis is seen. No periaortic lymphadenopathy is evident. The bowel is notable for moderate amount of stool in the colon with what appears to be redundancy of the right colon and cecum. No small bowel distention or significant displacement is evident. No prominent medial thickening is seen. Do not identify any periaortic lymphadenopathy. Small non-specific lymph nodes are present. The urinary bladder is unremarkable. The prostate gland is mildly prominent in size. There is a fat-containing left inguinal hernia. Moderate thoracolumbar degenerative changes are present. No acute compression fracture is seen. Procedure Note Reynold Ram MD - 11/20/2017 COMPARISON: Upper GI series September 2017 TECHNIQUE: After the administration of oral and intravenous contrast,multidetector CT is obtained from dome of the liver through the inferiorpubic rami. Multiplanar reformatted images generated. Automated exposurecontrol utilized. FINDINGS: The lung bases are clear. No significant pleural fluid is seen. The liver is relatively homogeneous. No focal findings concern are seen.No bile duct dilatation is noted. The spleen is unremarkable. The pancreas appears normal. No adrenal masses are evident. The kidneys are unremarkable. No nephrolithiasis or hydronephrosis isseen. No periaortic lymphadenopathy is evident. The bowel is notable for moderate amount of stool in the colon with whatappears to be redundancy of the right colon and cecum. No small boweldistention or significant displacement is evident. No prominent medialthickening is seen. Do not identify any periaortic lymphadenopathy. Small non-specific lymphnodes are present. The urinary bladder is unremarkable. The prostate gland is mildlyprominent in size. There is a fat-containing left inguinal hernia. Moderate thoracolumbar degenerative changes are present. No acutecompression fracture is seen. IMPRESSION: Moderate amount of stool evident in the colon with redundancy of the colonconsistent with obstipation. The exam is otherwise unremarkable. TOTAL CTDIvol: 7.60 mGy S/S: Abdominal pain, epigastric pain, generalized abdominal discomfort andbloating, increased gas, change in bowel habits POS - [id number] Darin Bradford MD IMG CT ABD/PELVIS Final Resu lt documented in this encounter Visit Diagnoses Diagnosis Abdominal pain, unspecified abdominal location Abdominal pain, unspecified abdominal location documented in this encounter Care Teams Outsole Paraffiner Relationship Specialty Start Date End Date Sebastián Guillen DO PCP - General Internal Medicine 09/10/17 07/27/24 Pcp, Unknown PCP - General 10/08/24 10/13/24 Sebastián Guillen DO [address] [place] [address] PCP - General Internal Medicine 10/14/24 Sebastián Guillen DO [address] [place] [address] PCP - General 08/17/24 10/07/24 Jill Estrada MBBS [email or web address] Medical Oncology 07/09/24 Shireen Galicia CNP [address] [place] [phone] Nurse Practitioner 10/08/24 Maritza Vazquez NP [address] [place] [phone] Nurse Practitioner 10/13/24 documented as of this encounter Additional Source Comments The information contained in this document represents components of the legal health record. It is not the complete legal health record.[facility]
--- OUTSIDE RECORDS SUMMARY | 2025-08-23 15:34 | XMS_ITS | Encounter Summary ---
Author Organization [facility] Address [address] [address] Phone Care Team Providers Care Furnace Loader Name Role Phone Sebastián Guillen DO Primary Care Provider + Jill Estrada MBBS Unavailable + Pcp, Unknown Primary Care Provider Unavailabl Shireen France SENIOR PROCUREMENT SPECIALIST Unavailable Maritza Vazquez TITLE I PARAPROFESSIONAL Unavailable [phone] BigSebastián ken A DO Primary Care Provider + Bigda, Sebastián A DO Primary Care Provider + Encounter Details Date Type Department Care Team (Late st Contact Info) Description 09/10/2017 Procedure Pass [facility] Admitting Dept Virtual Department [address] [place] [phone] Social History Tobacco Use Types Packs/Day Years [...] (Late Contact Info) Description 06/17/2025 Procedure Pass [facility] Ct Scan - [address] [address] 06/17/2025 Procedure Pass [address] [address] 09/08/2025 3:15 PM EST Appointment [address] [address] Jill Estrada MBBS [address] [place] [phone] [email or web address] 09/09/2025 1:40 PM EST Office Visit [facility] [address] [place] [address] Prakash Zambrano DO [address] [place] [address] 09/15/2025 2:00 PM EST Office Visit [facility] at [address] [address] Jill Estrada MBBS [address] [place] [phone] [email or web address] 09/24/2025 7:00 PM EST Appointment [facility], Bone Density - [address] [address] Sebastián Guillen DO [address] [facility] [place] [address] documented as of this encounter Visit Diagnoses Not on filedocumented in this encounter Care Teams Furnace Loader Relationship Specialty Start Date End Date Sebastián Guillen DO PCP - General Internal Medicine 09/10/17 07/27/24 Pcp, Unknown PCP - General 10/08/24 10/13/24 Sebastián Guillen DO [address] [place] [address] PCP - General Internal Medicine 10/14/24 Sebastián Guillen DO [address] [place] [address] PCP - General 08/17/24 10/07/24 Jill Estrada MBBS [email or web address] Medical Oncology 07/09/24 Shireen Galicia CNP [address] [place] [address] Nurse Practitioner 10/08/24 Maritza Vazquez NP [address] [place] [phone] Nurse Practitioner 10/13/24 documented as of this encounter Additional Source Comments The information contained in this document represents components of the legal health record. It is not the complete legal health record.[facility]
--- OUTSIDE RECORDS SUMMARY | 2025-08-23 15:34 | XMS_ITS | Encounter Summary ---
Author Organization [facility] Address [address] [facility] [address] [place] [address] Phone Care Team Providers Care Computer Systems Engineer Name Role Phone Sebastián Guillen DO Primary Care Provider [phone] Jill Estrada MBBS Unavailable [phone] Pcp, Unknown Primary Care Provider Unavailabl Shireen France LIQUID CENTER ASSEMBLER Unavailable Maritza Vazquez PUBLIC HEALTH MICROBIOLOGIST Unavailable + [phone] Bigda, Sebastián A DO Primary Care Provider + Bigda, Sebastián A DO Primary Care Provider [phone] Encounter Details Date Type Department Care Team (Latest Contact Info) Description 11/12/2017 Transcribe Orders [address] [address] Darin Bradford MD [address] [place] [phone] Abdominal pain, generalized (Primary Dx) Social History Tobacco Use Types [...] st Contact Info) Description 06/17/2025 Procedure Pass [facility], Ct Scan [address] [address] 06/17/2025 Procedure Pass [address] [address] 09/08/2025 3:15 PM EST Appointment [address] [address] Jill Estrada MBBS [address] [place] [address] [email or web address] 09/09/2025 1:40 PM EST Office Visit [facility] [address] [place] [address] Prakash Zambrano DO [address] [place] [address] 09/15/2025 2:00 PM EST Office [facility] at [address] [address] Jill Estrada MBBS [address] [place] [address] [email or web address] 09/24/2025 7:00 PM EST Appointment [facility], Bone Density [address] [address] Sebastián Guillen DO [address] [facility] [place] [address] documented as of this encounter Results * Creatinine/eGFR (11/12/2017 9:59 AM EST) CREATININE 1.00 0.5 - 1.5 mg/dL [facility] EGFR >60 60 - 1000 mL/min/1.7 3m2 [facility] Comment:Abnormal if <60. If patient is -Singaporean, multiply the result by 1.21. Blood 11/12/2017 9:59 AM EST 11/12/2017 10:30 AM EST us Darin Bradford MD LAB BLOOD BKR ORDERABLES Fin al Result [address] [address] documented in this encounter Visit Diagnoses Diagnosis Abdominal pain, generalized- Primary documented in this encounter Care Teams Computer Systems Engineer Relationship Specialty Start Date End Date Sebastián Guillen DO PCP - General Internal Medicine 09/10/17 07/27/24 Pcp, Unknown PCP - General 10/08/24 10/13/24 Sebastián Guillen DO [address] [place] [address] PCP - General Internal Medicine 10/14/24 Sebastián Guillen DO [address] [place] [address] PCP - General 08/17/24 10/07/24 Jill Estrada MBBS [email or web address] Medical Oncology 07/09/24 Shireen Galicia CNP [address] [place] [address] [email or web address] Nurse Practitioner 10/08/24 Maritza Vazquez NP [address] [place] [address] [email or web address] Nurse Practitioner 10/13/24 documented as of this encounter Additional Source Comments The information contained in this document represents components of the legal health record. It is not the complete legal health record.[facility]
--- OUTSIDE RECORDS SUMMARY | 2025-08-23 15:34 | XMS_ITS | Encounter Summary ---
Author Organization [facility] Address [address] [facility] [address] [place] [address] Phone Care Team Providers Care Information Officer Name Role Phone Jill Estrada MBBS Unavailable [phone] Shireen Galicia AUDIO/VIDEO ENGINEER Unavailable Maritza Vazquez GREASER OPERATOR Unavailable Sebastián Guillen DO Primary Care Provider [phone] Reason for Referral * Consultation (Within 2 weeks) - New Request Specialty Diagnoses / Procedures Referred By Contac t Referred To Contact Radiation Oncology Dulce Medeiros MD Phone: tel: fax: mailto:[email or web address] Dulce Medeiros MD Phone: tel: fax: mailto:[email or web address] Referral ID Status Reason Start Date Expiration Date V isits Requested Visits Authorized [id number] New Request 12/09/2024 12/09/2025 1 1 * Consultation (Within 2 weeks) - New Request Specialty Diagnoses / Procedures Referred By Contac t Referred To Contact Radiation Oncology Dulce Medeiros MD Phone: tel: fax: mailto:[email or web address] Ducle Medeiros MD Phone: tel: fax: mailto:[email or web address] Referral ID Status Reason Start Date Expiration Date V isits Requested Visits Authorized [id number] New Request 12/09/2024 12/09/2025 1 1 Reason for Visit * Reason Comments Simulation Teaching Visit Encounter Details Date Type Department Care Team (Late st Contact Info) Description 12/09/2024 Documentation [facility] Dept [place] [address] Beti Servin RN [address] [place] [phone] [email or web address] Simulation; Teaching Visit Social History Tobacco Use Types Packs/Day Years [...] uch as food, clothing, or medical care? No 08/17/2024 In the past 12 months have y ou been in a relationship with a person who hurts, threatens, or tries to control you? No 08/17/2024 Are you denied basic needs s uch as food, clothing, or medical care? No 08/17/2024 In the past 12 months have y ou been in a relationship with a person who hurts, threatens, or tries to control you? No 08/17/2024 Sex and Gender Information Value Date Recorded Sex Assigned at Male 07/08/2024 12:43 PM EDT Legal Sex Male 10:03 PM EDT Gender Identity Male 07/08/2024 12:43 PM EDT Sexual Orientation Straight 07/08/2024 12 :43 PM EDT documented as of this encounter Progress Notes * Beti Servin RN - 12/09/2024 4:13 PM EDT Patient and attended a teaching session Preparing for Radiation. The following topics were addressed. ? INITIAL ASSESSMENT: ? ( x) Patients readiness to learn ? ( ) Preferred method of learning (written, verbal, visual/audio) ? TEACHING: ? ( x) Diagnosis ? ( x) Treatment side effects ? ( ) Skin Care ? ( ) Nutritional Information ? ( ) Supportive care resources such as Wellness and Support Program and/or Consulting Services Associate. ? ( ) Medication Reconciliation completed ? PLAN: ? ( x) Continue to assess patient's readiness to learn and their educational needs ? ( x) Patient verbalized an understanding---needs periodic reinforcement ? ( ) Patient verbalizes partial understanding--needs continued reinforcement ? ( ) If the patient is unable to understand teaching, identify the barriers to learning and suggest additional options (attempt teaching at another time, include family members/loved ones etc) ? ( x) Other (please specify): Acupuncture and massage orders placed. ? EDUCATION: ? We reviewed the treatment plan including the physical area to be treated, the patient's schedule including anticipated start and end dates as well as the days of the week the treatments will be given. Review of common side effects and management specific to the patient and the area of treatment were discussed. Teaching material was reviewed collaboratively with the patient and the nurse. An opportunity to ask questions was provided. The patient expressed understanding of this material and received a copy to bring home. The patient's health care provider numbers were provided. Resident on-callcontact information given to patient in the event of an urgent/emergent issue to be implemented afte r department normal operating hours. ? An opportunity to ask questions and address concerns at the end of the presentation was provided. documented in this encounter Plan of Treatment Upcoming Encounters Date Type Department Care Team (Late st Contact Info) Description 06/17/2025 Procedure Pass [address] [address] 06/17/2025 Procedure Pass [address] [address] 09/08/2025 3:15 PM EST Appointment [address] [address] Jill Estrada, LISA [address] [place] [address] [email or web address] 09/09/2025 1:40 PM EST Office Visit [facility] [address] [place] [address] Prakash Zambrano DO [address] [place] [address] [email or web address] 09/15/2025 2:00 PM EST Office Visit [facility] at [address] [address] Jill Estrada MBBS [address] [place] [address] [email or web address] 09/24/2025 7:00 PM EST Appointment [facility] Bone Density [address] [address] Sebastián Guillen DO [address] [place] [address] [email or web address] Scheduled Referrals Name Type Priority Associated Diagnoses Order Schedule Ambulatory referral to [facility] Acupuncture (Oncology use Only) Outpatient Referral Routine Ordered: 12/09/2024 Ambulatory referral to [facility] Massage Therapy (Oncology use Only) Outpatient Referral Routine Ordered: 12/09/2024 documented as of this encounter Visit Diagnoses Not on filedocumented in this encounter Care Teams Information Officer Relationship Specialty Start Date End Date Sebastián Guillen DO [address] [place] [address] [email or web address] PCP - General Internal Medicine 10/14/24 Jill Estrada MBBS [email or web address] Medical Oncology 07/09/24 Shireen Galicia CNP [address] [place] [address] [email or web address] Nurse Practitioner 10/08/24 Maritza Vazquez NP [address] [place] [address] [email or web address] Nurse Practitioner 10/13/24 documented as of this encounter Additional Source Comments The information contained in this document represents components of the legal health record. It is not the complete legal health record.[facility]
--- OUTSIDE RECORDS SUMMARY | 2025-08-23 15:34 | XMS_ITS | Encounter Summary ---
Author Organization [facility] Address [address] [employer] [address] [place] [address] Phone Care Team Providers Care Tele Tech Name Role Phone Jill Estrada MBBS Unavailable [phone] Shireen Galicia TEAR DOWN MATCHER Unavailable Maritza Vazquez CUSTOMER EXPERT Unavailable [phone] Sebastián Guillen DO Primary Care Provider [phone] Encounter Details Date Type Department Care Team (Late st Contact Info) Description 03/10/2025 Procedure Pass [facility] PERIOPERATIVE DEPT [address] [place] [phone] Social History Tobacco Use Types Packs/Day Years [...] Date of Assessment Author No Risk Indicated 03/11/2025 4:00 PM EDT Terri Membreno RN * [place] Suicide Severity Rating Scale (Screener/Recent Self-Report) Question Answer Date of Assessment Author 1. Wish to be (Past 1 Month) No 03/11/2025 4:00 PM EDT Terri Banuelos RN 2. Non-Specific Active Suicidal Thoughts (Past 1 Month) No 03/11/2025 4:00 PM EDT Terri Banuelos RN 6. Suicidal Behavior (Lifetime) No 03/11/2025 4:00 PM EDT Terri Banuelos RN documented as of this encounter Plan of Treatment Upcoming Encounters Date Type Department Care Team (Late st Contact Info) Description 06/17/2025 Procedure Pass [address] [address] 06/17/2025 Procedure Pass [address] [address] 09/08/2025 3:15 PM EST Appointment [address] [address] Jill Estrada, LISA [address] [place] [address] [email or web address] 09/09/2025 1:40 PM EST Office Visit [facility] [address] [place] [address] Prakash Zambrano DO [address] [place] [address] 09/15/2025 2:00 PM EST Office Visit [facility] at [facility] 30 [place] [address] Jill Estrada MBBS 30 [place] [address] [email or web address] 09/24/2025 7:00 PM EST Appointment [facility], Bone [facility] - [address] [address] Sebastián Guillen, [address] [facility] [address] [email or web address] documented as of this encounter Visit Diagnoses Not on filedocumented in this encounter Care Teams Tele Tech Relationship Specialty Start Date End Date Sebastián Guillen DO [address] [place] [address] PCP - General Internal Medicine 10/14/24 Jill Estrada MBBS [email or web address] Medical Oncology 07/09/24 Shireen Galicia CNP [address] [place] [address] [email or web address] Nurse Practitioner 10/08/24 Maritza Vazquez, CUSTOMER EXPERT [address] [place] [address] [email or web address] Nurse Practitioner 10/13/24 documented as of this encounter Additional Source Comments The information contained in this document represents components of the legal health record. It is not the complete legal health record.[facility]
--- OUTSIDE RECORDS SUMMARY | 2025-08-23 15:35 | XMS_ITS | Encounter Summary ---
Author Organization [facility] Address [address] [employer] [address] [place] [address] Phone Care Team Providers Care Painting Worker Name Role Phone Sebastián Guillen DO Primary Care Provider + Jill Estrada MBBS Unavailable + Pcp, Unknown Primary Care Provider Unavailabl e Shireen Galicia COMMERCIAL SALES MANAGER Unavailable Maritza Vazquez GREEN JOBS TRAINER Unavailable [phone] Bigjesus manuel, Sebastián Malave DO Primary Care Provider + Bigda, Sebastián Malave DO Primary Care Provider + Encounter Details Date Type Department Care Team (Late st Contact Info) Description 07/14/2024 Procedure Pass [facility], Ct Scan - [address] [address] Social History Tobacco Use Types Packs/Day Years [...] st Contact Info) Description 06/17/2025 Procedure Pass [address] [address] 06/17/2025 Procedure Pass [address] [address] 09/08/2025 3:15 PM EST Appointment [address] [address] Jill Estrada MBBS [address] [place] [address] [email or web address] 09/09/2025 1:40 PM EST Office Visit [facility] [address] [place] [address] Prakash Zambrano DO [address] [place] [address] 09/15/2025 2:00 PM EST Office Visit [facility] at [address] [address] Jill Estrada MBBS [address] [place] [address] [email or web address] 09/24/2025 7:00 PM EST Appointment [facility], Bone Density [address] [address] Sebastián Guillen, DO [address] [facility] [place] [address] documented as of this encounter Visit Diagnoses Not on filedocumented in this encounter Care Teams Painting Worker Relationship Specialty Start Date End Date Mindy Sebastián MalaveDO PCP - General Internal Medicine 09/10/17 07/27/24 Pcp, Unknown PCP - General 10/08/24 10/13/24 Sebastián Guillen DO [address] [place] [address] PCP - General Internal Medicine 10/14/24 Sebastián Guillen DO [address] [place] [address] PCP - General 08/17/24 10/07/24 Jill Estrada MBBS [email or web address] Medical Oncology 07/09/24 Shireen Galicia CNP [address] [place] [address] Nurse Practitioner 10/08/24 Maritza Vazquez NP [address] [place] [address] Nurse Practitioner 10/13/24 documented as of this encounter Additional Source Comments The information contained in this document represents components of the legal health record. It is not the complete legal health record.[facility]
--- OUTSIDE RECORDS SUMMARY | 2025-08-23 15:35 | XMS_ITS | Encounter Summary ---
Author Organization [facility] Address [address] [employer] [address] [place] [address] Phone Care Team Providers Care Grave Digger Name Role Phone Sebastián Guillen DO Primary Care Provider + Jill Estrada MBBS Unavailable + Pcp, Unknown Primary Care Provider Unavailabl e Shireen Galicia KNOT SAW OPERATOR Unavailable Maritza Vazquez KICK PLATE INSTALLER Unavailable [phone] Bigjesus manuel, Sebastián Malave DO Primary Care Provider + Bigda, Sebastián Malave DO Primary Care Provider + Encounter Details Date Type Department Care Team (Late st Contact Info) Description 07/14/2024 Procedure Pass [facility], Ct Scan - [address] [address] Social History Tobacco Use Types Packs/Day Years [...] st Contact Info) Description 06/17/2025 Procedure Pass [address] [address] 06/17/2025 Procedure Pass [address] [address] 09/08/2025 3:15 PM EST Appointment [address] [address] Jill Estrada MBBS [address] [place] [address] [email or web address] 09/09/2025 1:40 PM EST Office Visit [facility] [address] [place] [address] Prakash Zambrano DO [address] [place] [address] 09/15/2025 2:00 PM EST Office Visit [facility] at [address] [address] Jill Estrada MBBS [address] [place] [address] [email or web address] 09/24/2025 7:00 PM EST Appointment [facility], Bone Density [address] [address] Sebastián Guillen, DO [address] [facility] [place] [address] documented as of this encounter Visit Diagnoses Not on filedocumented in this encounter Care Teams Grave Digger Relationship Specialty Start Date End Date Mindy Sebastián MalaveDO PCP - General Internal Medicine 09/10/17 07/27/24 Pcp, Unknown PCP - General 10/08/24 10/13/24 Sebastián Guillen DO [address] [place] [address] PCP - General Internal Medicine 10/14/24 Sebastián Guillen DO [address] [place] [address] PCP - General 08/17/24 10/07/24 Jill Estrada MBBS [email or web address] Medical Oncology 07/09/24 Shireen Galicia CNP [address] [place] [address] Nurse Practitioner 10/08/24 Maritza Vazquez NP [address] [place] [address] Nurse Practitioner 10/13/24 documented as of this encounter Additional Source Comments The information contained in this document represents components of the legal health record. It is not the complete legal health record.[facility]
--- OUTSIDE RECORDS SUMMARY | 2025-08-23 15:35 | XMS_ITS | Encounter Summary ---
Author Organization [facility] Address [address] [employer] [address] [place] [address] Phone Care Team Providers Care Sales And Service Associate Name Role Phone Jill Estrada MBBS Unavailable [phone] Shireen Galicia EMAIL MARKETING ASSISTANT Unavailable Maritza Vazquez SOFTWARE ENGINEERING ASSOCIATE MANAGER Unavailable [phone] Sebastián Guillen DO Primary Care Provider Encounter Details Date Type Department Care Team (Late st Contact Info) Description 02/03/2025 Procedure Pass [facility], Ct Scan - [address] [address] Social History Tobacco Use Types Packs/Day Years [...] st Contact Info) Description 06/17/2025 Procedure Pass [address] [address] 06/17/2025 Procedure Pass [address] [address] 09/08/2025 3:15 PM EST Appointment [address] [address] Jill Estrada MBBS [address] [place] [address] [email or web address] 09/09/2025 1:40 PM EST Office Visit [facility] [address] [place] [address] Prakash Zambrano DO [address] [place] [address] 09/15/2025 2:00 PM EST Office Visit [facility] at [address] [address] Jill Estrada MBBS [address] [place] [address] [email or web address] 09/24/2025 7:00 PM EST Appointment [facility], Bone Density - [facility] 30 [place] [address] BridgetteSebastián ken [address] [place] [address] [email or web address] documented as of this encounter Visit Diagnoses Not on filedocumented in this encounter Care Teams Sales And Service Associate Relationship Specialty Start Date End Date Sebastián Guillen DO 30 [place] [address] [email or web address] PCP - General Internal Medicine 10/14/24 Jill Estrada MBBS [email or web address] Medical [email or web address] 07/09/24 Shireen Galicia CNP [address] [place] [address] [email or web address] Nurse Practitioner 10/08/24 Maritza Vazquez NP [address] [place] [address] [email or web address] Nurse Practitioner 10/13/24 documented as of this encounter Additional Source Comments The information contained in this document represents components of the legal health record. It is not the complete legal health record.[facility]
--- OUTSIDE RECORDS SUMMARY | 2025-08-23 15:35 | XMS_ITS | Encounter Summary ---
Author Organization [facility] Address [address] [employer] [address] [place] [address] Phone Care Team Providers Care Moss Bleacher Name Role Phone Jill Estrada MBBS Unavailable [phone] Shireen Galicia INSIDE SALES ASSISTANT Unavailable Maritza Vazquez HOUSING MANAGEMENT REPRESENTATIVE Unavailable [phone] Sebastián Guillen DO Primary Care Provider [phone] Encounter Details Date Type Department Care Team (Late st Contact Info) Description 11/02/2024 Procedure Pass [facility], Ct Scan - [address] [address] Social History Tobacco Use Types Packs/Day Years [...] st Contact Info) Description 06/17/2025 Procedure Pass [address] [address] 06/17/2025 Procedure Pass [address] [address] 09/08/2025 3:15 PM EST Appointment [address] [address] Jill Estrada MBBS [address] [place] [address] [email or web address] 09/09/2025 1:40 PM EST Office Visit [facility] [address] [place] [address] Prakash Zambrano DO [address] [place] [address] 09/15/2025 2:00 PM EST Office Visit [facility] at [address] [address] Jill Estrada MBBS [address] [place] [address] [email or web address] 09/24/2025 7:00 PM EST Appointment [facility], Bone Density - [facility] 30 [place] [address] BridgetteSebastián ken [address] [place] [address] [email or web address] documented as of this encounter Visit Diagnoses Not on filedocumented in this encounter Care Teams Moss Bleacher Relationship Specialty Start Date End Date Sebastián Guillen DO 30 [place] [address] [email or web address] PCP - General Internal Medicine 10/14/24 Jill Estrada MBBS [email or web address] Medical [email or web address] 07/09/24 Shireen Galicia CNP [address] [place] [address] [email or web address] Nurse Practitioner 10/08/24 Maritza Vazquez NP [address] [place] [address] [email or web address] Nurse Practitioner 10/13/24 documented as of this encounter Additional Source Comments The information contained in this document represents components of the legal health record. It is not the complete legal health record.[facility]
--- OUTSIDE RECORDS SUMMARY | 2025-08-23 15:35 | XMS_ITS | Encounter Summary ---
Author Organization [facility] Address [address] [employer] [address] [place] [address] Phone Care Team Providers Care Dishwashing Machine Repairer Name Role Phone Jill Estrada MBBS Unavailable [phone] Shireen Galicia APPRENTICE TECHNICIAN Unavailable Maritza Vazquez GAS REGULATOR REPAIRER HELPER Unavailable Sebastián Guillen DO Primary Care Provider [phone] Encounter Details Date Type Department Care Team (Late st Contact Info) Description 02/17/2025 Procedure Pass [facility] Cardiovascular And Interventional Radiology [address] [place] [address] Social History Tobacco Use Types Packs/Day Years [...] as food, clothing, or medical care? No 02/17/2025 In the past 12 months have y ou been in a relationship with a person who hurts, threatens, or tries to control you? No 02/17/2025 Are you denied basic needs s uch as food, clothing, or medical care? No 02/17/2025 In the past 12 months have y ou been in a relationship with a person who hurts, threatens, or tries to control you? No 02/17/2025 Sex and Gender Information Value Date Recorded Sex Assigned at Male 07/08/2024 12:43 PM EDT Legal Sex Male 10:03 PM EDT Gender Identity Male 07/08/2024 12:43 PM EDT Sexual Orientation Straight 07/08/2024 12 :43 PM EDT documented as of this encounter Plan of Treatment Upcoming Encounters Date Type Department Care Team (Late st Contact Info) Description 06/17/2025 Procedure Pass [address] [address] 06/17/2025 Procedure Pass [address] [address] 09/08/2025 3:15 PM EST Appointment [address] [address] Jill Estrada MBBS [address] [place] [address] [email or web address] 09/09/2025 1:40 PM EST Office Visit [facility] 22 [place] [address] [place] [address] 09/15/2025 2:00 PM EST Office Visit [facility] at [address] [address] Jill Estrada MBBS [address] [place] [address] [email or web address] 09/24/2025 7:00 PM EST Appointment [facility], Bone Density - [facility] [address] [place] [address] Sebastián Guillen AnandaDO [address] [facility] [place] [address] [email or web address] documented as of this encounter Visit Diagnoses Not on filedocumented in this encounter Care Teams Dishwashing Machine Repairer Relationship Specialty Start Date End Date Sebastián Guillen 30 [place] [address] [email or web address] PCP - General Internal Medicine 10/14/24 Jill Estrada MBBS [email or web address] Medical [email or web address] 07/09/24 Shireen Galicia CNP [address] [place] [address] [email or web address] Nurse Practitioner 10/08/24 Maritza Vazquez NP [address] [place] [address] [email or web address] Nurse Practitioner 10/13/24 documented as of this encounter Additional Source Comments The information contained in this document represents components of the legal health record. It is not the complete legal health record.[facility]
--- OUTSIDE RECORDS SUMMARY | 2025-08-23 15:35 | XMS_ITS | Encounter Summary ---
Author Organization [facility] Address [address] [address] Phone Care Team Providers Care Laundry Folder Name Role Phone Sebastián Guillen DO Primary Care Provider [phone] Jill Estrada MBBS Unavailable [phone] Pcp, Unknown Primary Care Provider Unavailabl e Shireen Galicia DIRECTOR ONCOLOGY Unavailable Maritza Vazquez CLASSIFICATION CASE MANAGER Unavailable [phone] Sebastián Guillen DO Primary Care Provider [phone] Sebastián Guillen DO Primary Care Provider [phone] Encounter Details Date Type Department Care Team (Late st Contact Info) Description 07/15/2024 Telephone [facility] [address] [place] [address] Sebastián Guillen DO 179 [facility] [place] [address] [place] [address] [email or web address] Social History Tobacco Use Types Packs/Day Years [...] st Contact Info) Description 06/17/2025 Procedure Pass [address] [address] 06/17/[address] [address] 09/08/2025 3:15 PM EST Appointment [address] [address] Jill Estrada MBBS [address] [place] [phone] [email or web address] 09/09/2025 1:40 PM EST Office Visit [facility] [address] [place] [address] Prakash Zambrano DO [address] [place] [address] 09/15/2025 2:00 PM EST Office Visit [facility] at [address] [address] Jill Estrada MBBS [address] [place] [phone] [email or web address] 09/24/2025 7:00 PM EST Appointment [facility] [address] [place] [address] Sebastián Guillen DO [address] [place] [address] [email or web address] documented as of this encounter Visit Diagnoses Not on filedocumented in this encounter Care Teams Laundry Folder Relationship Specialty Start Date End Date Sebastián Guillen DO PCP - General Internal Medicine 09/10/17 07/27/24 Pcp, Unknown PCP - General 10/08/24 10/13/24 Sebastián Guillen DO 30 [place] [address] PCP - General Internal Medicine 10/14/24 Sebastián Guillen DO 179 [place] [address] PCP - General 08/17/24 10/07/24 Jill Estrada MBBS [email or web address] Medical Oncology 07/09/24 Shireen Galicia CNP [address] [place] [address] Nurse Practitioner 10/08/24 Maritza Vazquez, CURTIS [address] [place] [address] Nurse Practitioner 10/13/24 documented as of this encounter Additional Source Comments The information contained in this document represents components of the legal health record. It is not the complete legal health record.[facility]
--- OUTSIDE RECORDS SUMMARY | 2025-08-23 15:35 | XMS_ITS ---
Author Organization [facility] Address [address] [place] [address] Phone Care Team Providers Care Grounds Maintenance Worker Name Role Phone Jill Estrada Unavailable [phone] Shireen Galicia ECOLOGIST TECHNICIAN Unavailable Maritza Vazquez DUST PULLER Unavailable Sebastián Guillen DO Primary Care Provider Active Problems Problem Noted Date Diagnosed Date [...] needs close surveillance. Patient was seen by [facility] GI malignancy multi D clinic. Patient was [...] needs close surveillance. Patient was seen by [facility] GI malignancy [facility] D clinic. Patient was recommended to [...] needs close surveillance. Patient was seen by [facility] GI malignancy [facility] D clinic. Patient was recommended to [...] in this regard. I reviewed records from [facility] GI malignancy multi D clinic. Patient was [...] has seen Dr. Medeiros radiation oncology at [facility] and will be restarting his radiation therapy there in 2 weeks. He will be taking concurrent oral chemotherapy Xeloda with radiation therapy. I discussed side effects from this approach including but not limited to allergic reactions, skin toxicity/tutf-ffh-hqot syndrome, pancytopenia, neutropenic fever, infection, bleeding, cardiac toxicity, renal toxicity, hepatic toxicity, pulmonary toxicity, neurotoxicity, neuropathy, GI toxicity including nausea, vomiting and diarrhea, mucositis, colitis, thrombosis and a small risk of from these complications. Patient signed informed consent today. RECOMMENDATIONS: Patient to start radiation therapy at [facility] Patient will start concurrent oral chemotherapy Xeloda [...] in this regard. I reviewed records from [facility] GI malignancy multi D clinic. Patient was [...] in this regard. I reviewed records from [facility] GI malignancy [facility] clinic. Patient was recommended to undergo neoadjuvant [...] in this regard. I reviewed records from [facility] GI malignancy [facility] D clinic. Patient was recommended to [...] this regard. I have reviewed records from [facility] GI malignancy [facility] D clinic. Patient is recommended to undergo [...] of chemotherapy Labs were done recently in Hgffrx-ozslctdr-ylr unremarkable DPYD gene sequencing Schedule PORT placement [...] FOLFIRINOX 8x cycles now s/p Whipple (03/10, [place]). ?First diagnosed with type 2 diabetes in 2020 in the setting of routine screening. Initially treated with oral medications, believes metformin. Later started on insulin. Most recent home regimen includes basal/bolus MDI insulin in the form of 28 units of Lantus nightly and Lispro 4-12 unit sliding scale with meals. He uses a ACE*COMMstyle Miguel 3 for glucose monitoring. Followed by [place]. Prakash Zambrano at [facility]. Last seen 02/02/25.A1c 8.1% 12/14/2024. Pt's blood sugars in target range in the past 24 hours without hypoglycemia. Plan is for him to be discharged home later today. Recommend that he continue Lantus 16 units at home and add prandial insulin when PO intake is more established and blood sugars are consistently > 200 mg/dl. He follows at [facility] and recommend he has close f/u. [...] before meals and bedtime Follow-up closely with cake washer Assessment & Plan (03/11/2025 1:53 PM EDT): Mr. Gaurav Arreola is a 74 y.o. male with pmhx of HLD, IDDM, mood disorder, and pancreatic cancer (acinar cell carcinoma) s/p FOLFIRINOX 8x cycles now s/p Whipple (03/10, [place]). ?First diagnosed with type 2 diabetes in 2020 in the setting of routine screening. Initially treated with oral medications, believes metformin. Later started on insulin. Most recent home regimen includes basal/bolus MDI insulin in the form of 28 units of Lantus nightly and Lispro 4-12 unit sliding scale with meals. He uses a [employer] Miguel 3 for glucose monitoring. Followed by Dr. Prakash Zambrano at [facility]. Last seen 02/02/25.A1c 8.1% 12/14/2024. Received [...] to bilirubinuria or dehydration related to hyperglycemia. Current Treatment and Therapy Plans ACCESS AND FLUSH ([facility])* Plan Start Date:08/19/2024 Plan Provider:Shireen Galicia CNP Linked Problems Malignant neoplasm of head o f pancreas Treatment Medications No medications scheduled. Past Treatment and Therapy Plans TREATMENT PLAN Plan Name Start Date Discontinue Date Treatment Medications Discontinue Reason Plan Provider Cycles CAPECITABINE WITH XRT - 5 DAY PER WEEK SCHEDULE 12/23/19 25 04/30/2025 capecitabine (XELODA) a. Therapy Complete Jill Estrada MBBS Treatment not started FOLFIRINOX - Fluorouracil/L eucovorin/Irin otecan/Oxalipl atin 08/05/20 24 12/14/2024 fluorouracil (ADRUCIL) CADD pump infusion (total dose > 5000 mg, infusion time > 24 hours) (336 mL)irinotecan (CAMPTOSAR) IVPBoxaliplatin (ELOXATIN) IVPB a. Therapy Complete Jill Estrada MBBS 8 of 8 cycles started Lifetime Dose Tracking * Chemical Lifetime Dose Automatic Entry Manual Entr y 2. DAP 9.36 uGy-m2 0 uGy-m2 9.36 uGy-m2 Resolved Problems Problem Noted Date Diagnosed Date [...]
--- OUTSIDE RECORDS SUMMARY | 2025-08-23 15:35 | XMS_ITS | Encounter Summary ---
Author Organization [facility] Address [address] [employer] [address] [place] [address] Phone Care Team Providers Care Product Development Assistant Name Role Phone Jill Estrada MBBS Unavailable [phone] Pcp, Unknown Primary Care Provider Unavailabl e Shireen Galicia DATA SYSTEMS MANAGER Unavailable Marizta Vazquez SUPERVISOR POWDER AND PRIMER CANNING Unavailable [phone] Sebastián Guillen A DO Primary Care Provider [phone] Sebastián Guillen DO Primary Care Provider + Encounter Details Date Type Department Care Team (Late st Contact Info) Description 07/28/2024 Procedure Pass [facility] [address] [place] [address] Social History Tobacco Use Types Packs/Day Years [...] st Contact Info) Description 06/17/2025 Procedure [address] [address] 06/17/2025 Procedure Pass [address] [address] 09/08/2025 3:15 PM EST Appointment [address] [address] Jill Estrada MBBS [address] [place] [address] [email or web address] 09/09/2025 1:40 PM EST Office Visit [facility] 22 [place] [address] Prakash Zambrano DO [address] [place] [address] 09/15/2025 2:00 PM EST Office Visit [facility] at [address] [address] Jill Estrada MBBS [address] [place] [phone] [email or web address] 09/24/2025 7:00 PM EST Appointment [facility], Bone Density [address] [address] Sebastián Guillen, DO 179 [facility] [place] [address] documented as of this encounter Visit Diagnoses Not on filedocumented in this encounter Care Teams Product Development Assistant Relationship Specialty Start Date End Date Pcp, Unknown PCP - General 10/08/24 10/13/24 Sebastián Guillen DO 30 [place] [address] PCP - General Internal Medicine 10/14/24 Sebastián Guillen DO [address] [place] [address] PCP - General 08/17/24 10/07/24 Jill Estrada MBBS [email or web address] Medical Oncology 07/09/24 Shireen Galicia CNP [address] [place] [phone] Nurse Practitioner 10/08/24 Maritza Vazquez NP [address] [place] [address] Nurse Practitioner 10/13/24 documented as of this encounter Additional Source Comments The information contained in this document represents components of the legal health record. It is not the complete legal health record.[facility]
--- OUTSIDE RECORDS SUMMARY | 2025-08-23 15:35 | XMS_ITS | Encounter Summary ---
Author Organization [facility] Address [address] [place] [address] Phone Care Team Providers Care Chassis Engineer Name Role Phone Jill Estrada MBBS Unavailable [phone] Shireen Galicia RECEPTIONIST DOCTOR'S OFFICE Unavailable Maritza Vazquez PROJECT MANAGEMENT Unavailable [phone] Sebastián Guillen DO Primary Care Provider [phone] Encounter Details Date Type Department Care Team (Late st Contact Info) Description 11/02/2024 Procedure Pass [facility], Ct Scan - [address] [address] Social History Tobacco Use Types Packs/Day Years [...] st Contact Info) Description 06/17/2025 Procedure Pass [address] [address] 06/17/2025 Procedure Pass [address] [address] 09/08/2025 3:15 PM EST Appointment [address] [address] Jill Estrada MBBS [address] [place] [phone] [email or web address] 09/09/2025 1:40 PM EST Office Visit [facility] [address] [place] [address] Prakash Zambrano DO [address] [place] [address] 09/15/2025 2:00 PM EST Office Visit [facility] at [address] [address] Jill Estrada MBBS [address] [place] [phone] [email or web address] 09/24/2025 7:00 PM EST Appointment [facility], Bone Density - [facility] 30 [place] [address] BridgetteSebastián ken [address] [facility] [place] [address] [email or web address] documented as of this encounter Visit Diagnoses Not on filedocumented in this encounter Care Teams Chassis Engineer Relationship Specialty Start Date End Date Sebastián Guillen DO 30 [place] [address] [email or web address] PCP - General Internal Medicine 10/14/24 Jill Estrada MBBS [email or web address] Medical [email or web address] 07/09/24 Shireen Galicia CNP [address] [place] [address] [email or web address] Nurse Practitioner 10/08/24 Maritza Vazquez NP [address] [place] [address] [email or web address] Nurse Practitioner 10/13/24 documented as of this encounter Additional Source Comments The information contained in this document represents components of the legal health record. It is not the complete legal health record.[facility]
--- OUTSIDE RECORDS SUMMARY | 2025-08-23 15:36 | XMS_ITS | Encounter Summary ---
Author Organization [facility] Address [address] [place] [address] Phone Care Team Providers Care Railroad Construction Director Name Role Phone Jill Estrada MBBS Unavailable [phone] Pcp, Unknown Primary Care Provider Unavailnathaniel e Shireen Galicia GROCERY BUYER Unavailable Maritza Vazquez [employer] WEBSPHERE COMMERCE CONSULTANT Unavailable [phone] Sebastián Guillen A DO Primary Care Provider [phone] Sebastián Guillen DO Primary Care Provider + Encounter Details Date Type Department Care Team (Late st Contact Info) Description 09/01/2024 Procedure Pass [facility], Ct Scan - [address] [id number] Social History Tobacco Use Types Packs/Day Years [...] (Late st Contact Info) Description 06/17/[address] [address] 06/17/[address] [address] 09/08/2025 3:15 PM EST Appointment [address] [address] Jill Estrada, LISA [address] [place] [phone] [email or web address] 09/09/2025 1:40 PM EST Office Visit [facility] [address] [place] [address] Prakash Zambrano DO [address] [place] [address] 09/15/2025 2:00 PM EST Office Visit [facility] at [address] [address] Jill Estrada MBBS [address] [place] [phone] [email or web address] 09/24/2025 7:00 PM EST Appointment [facility], Bone Density - [address] [address] Sebastián Guillen DO 179 [place] [address] [email or web address] documented as of this encounter Visit Diagnoses Not on filedocumented in this encounter Care Teams Railroad Construction Director Relationship Specialty Start Date End Date Pcp, Unknown PCP - General 10/08/24 10/13/24 Sebastián Guillen DO [address] [place] [address] PCP - General Internal Medicine 10/14/24 Sebastián Guillen DO [address] [place] [address] PCP - General 08/17/24 10/07/24 Jill Estrada MBBS [email or web address] Medical Oncology 07/09/24 Shireen Galicia CNP [address] [place] [address] [email or web address] Nurse Practitioner 10/08/24 Maritza Vazquez, CURTIS [address] [place] [address] [email or web address] Nurse Practitioner 10/13/24 documented as of this encounter Additional Source Comments The information contained in this document represents components of the legal health record. It is not the complete legal health record.[facility]
--- OUTSIDE RECORDS SUMMARY | 2025-08-23 15:36 | XMS_ITS | Continuity of Care Document ---
Author Organization [place] - [facility], [facility] Address [address] [place] [address] [place] [address] Assessment Encounter Date Assessment Date Assessment LastModified by Organization Details LastModified Time 08/16/2025 08/16/2025 [id number] [place] [id number] (DESKTOP MANAGER) MDM MODERATE MUST MEET 2 OUT OF [...] available Lab microalbu min, urine 2024 025 [facility], [address] [place] [address], [place], [address], 08/16/2025 15:06:42 urinalysi s complete, reflex culture 2024 025 [facility], [address], [place], [address], 08/16/2025 15:06:42 Referral None recorded. Procedures None recorded. Surgeries None recorded. Imaging None recorded. Medication Orders cevimelin e 30 mg capsule 2024 025 [id number], [address] [place], [place], [id number], 08/16/2025 15:02:02 Patient TargetsNo targets recorded. Patient InstructionsNo instructions recorded. Reason for Referral None Reported. Results Created Date Observation Date Name Description Value Unit Range Abnormal Flag Note LastModifiedBy Organization Detail LastModifiedTime Result Notes None recorded. Problems Name Problem SNOMED Code Status Onset Date Resolution Date Notes Provider Name and Address Organization Details Recorded Time Hyperchol esterolem ia 18570972 Active 2017 Not Available [facility] 4 14:18:41 [place] polyp of colon 298245466 Active 2017 Not Available [facility] 4 14:18:41 Anxiety 85341246 Active 2017 Not Available [facility] 4 14:18:41 Type 2 diabetes mellitus 59230958 Active 2020 SAPNA THURMAN [address] [place], [address], [facility] 5 13:55:07 Depressiv e disorder 87574865 Active 2021 Not Available [facility] 4 14:18:41 Low back pain 011483783 Active 2021 Not Available [facility] 4 14:18:41 Kidney stone 87090756 Active 2021 Not Available [facility] 4 14:18:41 Lumbago with sciatica 822835274 Active 2022 Not Available [facility] 4 14:18:41 Acute bronchiti s 76146143 Active 2022 Not Available [facility] 4 14:18:41 Lesion of skin of face 851909483428 Active 2023 SAPNA THURMAN [address] [place], [address], [facility] 4 14:23:00 Pneumonia 425652007 Active 2023 SAPNA THURMAN [address] [place] [address], [address], [facility] 4 14:38:48 Jaundice 53829353 Active 2023 SAPNA THURMAN [address] [place] [address], [address], [facility] 4 11:06:22 Hyperglyc emia 86040272 Active 2023 SAPNA THURMAN [address] [place] [address], [address], [facility] 4 11:11:39 Malignant neoplasm of pancreas 946363653 Active 2023 SAPNA THURMAN [address] [place] [address], [address], [facility] 4 12:30:54 Depressed mood 552866058 Active 2024 Sebastián Cutler, DO [address] [place] [address], [address], [facility] 5 14:40:42 Impetigo 23017801 Active 2024 Sebastián Cutler DO [address] [place] [address], [address], [facility] 5 14:29:34 Urinary frequency due to benign prostatic hypertrop 380101743544 102 Active 2024 Sebastián Cutler, DO [address] [place] [address], [address], [facility] 5 14:30:04 Actinic keratosis 946044809 Active 2024 Sebastián Cutler DO [address] [place] [address], [address], [facility] 5 14:32:58 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 Active 2024 Sebastián Cutler DO [address] [place], [address], [facility] 14:37:40 Mixed conductiv e and sensorine ural hearing loss, bilateral 791922844 Active 2024 Sebastián Cutler, DO [address] [place], [address], [facility] 22:03:02 Gastroeso phageal reflux disease 764165492 Active 2024 Sebastián Cutler, DO [address] [place], [address], [facility] 13:46:58 Xerostomi a 82715194 Active 2024 Sebastián Cutler, DO [address] [place] [address], [address], [facility] 15:00:25 Notes:Some problems listed i n Documents: #[id number], #[id number], #[id number] could not be added to this patient's chart. Please review these documents and add these problems to the patient's chart manually as needed. Problem Notes None recorded. Procedures Surgical History Date Name Laterality Status Provider Name and Address Organization Details Recorded Time 7 Colonoscopy completed Lexis Longo [facility] 05/27/2018 16:11:45 Imaging Results None [...] Available Not Available Not Available amoxicillin 875 mg-potassiu m clavulanate 125 mg tablet Take 1 [...] Updated DateTime 5 175.26 cm 26.6 kg/m2 87451.6 3 g 78 /min 98 % 130/68 mm[Hg] [facility] 5 14:24:29 Social History Question Answer Notes LastModified by Organizat ion Details LastModified Time Tobacco Smoking Status Never Smoker Not Available [facility] 08/02/2020 03:36:24 What Was The Date Of Your Most Recent Tobacco Screening? 08/16/2025 [email or web address] Information not available 08/16/2025 Sex: Unknown Functional Status Question Answer Note LastModified by Organization D etails LastModified Time Do you or have you ever used any other forms of tobacco or nicotine? No [email or web address] Information not available 12/28/2022 Mental Status None [...] mcg/0.3 mL dose 1 completed Not Available [facility] 10/21/2023 14:18:41 Influenza, split virus, quadrivalent, preservative 8 completed Not Available [facility] 10/21/2023 14:18:41 COVID-19, mRNA, LNP-S, PF, 30 mcg/0.3 mL dose 2 completed Not Available On license of [facility] 10/21/2023 14:18:41 Influenza, split virus, quadrivalent, preservative 9 completed Not Available [facility] 10/21/2023 14:18:41 Tdap 0 completed Not Available [facility] 10/21/2023 14:18:41 Influenza, split virus, quadrivalent, preservative 0 completed Not Available [facility] 10/21/2023 14:18:41 pneumococcal polysaccharide PPV23 8 completed Not Available [facility] 10/21/2023 14:18:41 COVID-19, mRNA, LNP-S, PF, 30 mcg/0.3 mL dose 1 completed Not Available [facility] 10/21/2023 14:18:41 COVID-19, mRNA, LNP-S, PF, 30 mcg/0.3 mL dose 1 completed Not Available On license of [facility] 10/21/2023 14:18:41 Past Encounters Encounter ID Performer Location Encounter Start Date Encounter Closed Date Diagnosis/Indication Diagnosis SNOMED-CT Code Diagnosis ICD10 Code Diagnosis IMO Codes Diagnosis Note [id number] DO Janice [facility] [address] [facility] [address] 08/16/2025 14:17:13 08/17/2025 08:49:36 Depression screening 611529887 Z13.31 pos will addbuprop1 00 Type 2 lidia betes mellitus 79728764 E11.9 Z79.4 61454925 a1c is 8.2% following with dr fernando Parks 93082383 R68. 2 [id number] will try a silagogue as he sees dentist no gerd or coffee or smoking etc drinks water all day Health Concerns Section Related Observation LastModified by Organization Detai ls LastModified Time None Recorded Concern Status LastModified by Organization Details LastModified Time None Recorded Payers Encounter Date Sequence Insurance Name Policy Number Policy Cm Covered Member ID Cm Member ID Guarantor Name 08/16/2025 1 [facility] - MEDICARE PREFERRED (MEDICARE REPLACEMENT HMO) DANIKA Arreola [id number] 1 Gauarv Arreola Notes Date Note Type Note Provider Name a nd Address Organization Details Recorded Time 5 text/html Care Management - DiabetesReported by PatientHPIFor self [...] as noted in the HPI Sebastián Cutler, DO [address] [place] [address], [place], [address], [facility] 08/16/2025 15:07:06
--- OUTSIDE RECORDS SUMMARY | 2025-08-23 15:36 | XMS_ITS | Encounter Summary ---
Author Organization [facility] Address [address] [place] [address] Phone Care Team Providers Care Finish Patcher Name Role Phone Jill Estrada MBBS Unavailable [phone] Pcp, Unknown Primary Care Provider Unavailnathaniel e Shireen Galicia TURNER MACHINE OPERATOR Unavailable Maritza Vazquez ARTIST'S REPRESENTATIVE Unavailable [phone] Sebastián Guillen A DO Primary Care Provider [phone] Sebastián Guillen DO Primary Care Provider + Encounter Details Date Type Department Care Team (Late st Contact Info) Description 09/01/2024 Procedure Pass [facility], Ct Scan - [address] [id number] Social History Tobacco Use Types Packs/Day Years [...] (Late st Contact Info) Description 06/17/[address] [address] 06/17/[address] [address] 09/08/2025 3:15 PM EST Appointment [address] [address] Jill Estrada, LISA [address] [place] [phone] [email or web address] 09/09/2025 1:40 PM EST Office Visit [facility] [address] [place] [address] Prakash Zambrano DO [address] [place] [address] 09/15/2025 2:00 PM EST Office Visit [facility] at [address] [address] Jill Estrada MBBS [address] [place] [phone] [email or web address] 09/24/2025 7:00 PM EST Appointment [facility], Bone Density - [address] [address] Sebastián Guillen DO [address] [place] [address] [email or web address] documented as of this encounter Visit Diagnoses Not on filedocumented in this encounter Care Teams Finish Patcher Relationship Specialty Start Date End Date Pcp, Unknown PCP - General 10/08/24 10/13/24 Sebastián Guillen DO [address] [place] [address] PCP - General Internal Medicine 10/14/24 Sebastián Guillen DO [address] [place] [address] PCP - General 08/17/24 10/07/24 Jill Estrada MBBS [email or web address] 07/09/24 Shireen Galicia CNP [address] [place] [phone] [email or web address] Nurse Practitioner 10/08/24 Maritza Vazquez, CURTIS [address] [place] [phone] [email or web address] Nurse Practitioner 10/13/24 documented as of this encounter Additional Source Comments The information contained in this document represents components of the legal health record. It is not the complete legal health record.[email or web address]
== END 2025-08-23 11:43 | disposition home or self-care (01) ==
LOC: HO.MANLDS 11:42
PROVIDERS: Visit Provider Internal Medicine
DX: E11.9 Type 2 diabetes mellitus without complications (principal); Z79.4 Long term (current) use of insulin
CPT/HCPCS: 81001; 82043; 82570